=== PATIENT | male | born 1940 | race Caucasian/White ===

== ENCOUNTER → 2025-06-02 11:41 | Outpatient (REF) | payer OTHER, MEDICARE, SELFPAY ==
[2025-06-02 12:29] LABS: Hematocrit 36.7 % (39.0-52.0); Hemoglobin 12.5 g/dL (13.0-18.0); Mean Corp Hgb Conc. 34.1 g/dL (33.0-37.0); Mean Corpuscular Volume 95.3 fL (80.0-94.0); Nucleated Red Blood Cells % 0 % (-); Platelet Count 227 10^3/uL (130-400); Red Cell Dist. Width 12.9 % (11.5-14.5)
[2025-06-02 12:37] LABS: Blood Urea Nitrogen 45 mg/dl (9-20); Calcium 9.2 mg/dl (8.4-10.2); Carbon Dioxide 29 mmol/L (22-30); Chloride 106 mmol/L (98-107); Glucose 105 mg/dl (70-99); Potassium 3.8 mmol/L (3.5-5.1); Sodium 137 mmol/L (135-145); eGFR > 60.00
== END ==
LOC: OLABP 11:41
PROVIDERS: ATTENDING PHYSICIAN Family Medicine
DX: G20.C Parkinsonism, unspecified (principal)
CPT/HCPCS: 36415; 80048; 85025

== ENCOUNTER → 2025-06-06 10:11 | Outpatient (REF) | payer OTHER, MEDICARE, SELFPAY ==
[2025-06-06 10:46] LABS: Blood Urea Nitrogen 29 mg/dl (9-20); Calcium 9.1 mg/dl (8.4-10.2); Carbon Dioxide 29 mmol/L (22-30); Chloride 105 mmol/L (98-107); Glucose 92 mg/dl (70-99); Potassium 3.9 mmol/L (3.5-5.1); Sodium 137 mmol/L (135-145); eGFR > 60.00
== END ==
LOC: OLABP 10:11
PROVIDERS: ATTENDING PHYSICIAN Family Medicine
DX: G20.C Parkinsonism, unspecified (principal); C21.0 Malignant neoplasm of anus, unspecified
CPT/HCPCS: 36415; 80048

== ENCOUNTER 2025-06-08 11:56 | Inpatient (IN) | payer MEDICARE, OTHER, SELFPAY ==
[2025-06-08] VITALS (8 sets, daily range): BP systolic 104–146; BP diastolic 46–72; BMI 23.0
[2025-06-08 09:05] LABS: Hematocrit 31.1 % (39.0-52.0); Hemoglobin 10.5 g/dL (13.0-18.0); Mean Corp Hgb Conc. 33.8 g/dL (33.0-37.0); Mean Corpuscular Volume 96.3 fL (80.0-94.0); Nucleated Red Blood Cells % 0 % (-); Platelet Count 223 10^3/uL (130-400); Red Cell Dist. Width 12.9 % (11.5-14.5)
[2025-06-08 09:16] LABS: Urine Character Bloody (Clear)
[2025-06-08 09:18] LABS: Urine Red Blood Cell >100 /HPF (0-2)
[2025-06-08 09:22] LABS: Blood Urea Nitrogen 30 mg/dl (9-20); Calcium 8.5 mg/dl (8.4-10.2); Carbon Dioxide 27 mmol/L (22-30); Chloride 106 mmol/L (98-107); Glucose 97 mg/dl (70-99); Sodium 136 mmol/L (135-145); eGFR > 60.00
--- NOTE | 2025-06-08 09:34 | ED.GENMED ---
History of Present Illness
General
Chief Complaint: Urinary Symptoms
Source: spouse
Exam Limitations: dementia
Time Seen by Provider: 06/08/25 09:13
History of Present Illness
History of Present Illness:
85-year-old male sent in for hematuria. Patient is currently at [facility] after a week stay at [facility]. He was admitted to [place] with mental status change. History of Parkinson's. They ultimately determined that his
mental status change was related to his Parkinson's. Hernández was placed about a week ago at [facility] for unknown reason. thinks it was because of incontinence. Has had hematuria for this time. Ongoing and continues. Patient has no specific
complaints.
Past History
Past History
ED Past Medical History: Cancer (Prostate CA), Valvular disease (Aortic stenosis) and Other (Parkinson's/dementia)
Phy Exam
Physical Exam
Physical Exam:
GENERAL: Eyes closed but will respond react talk
EYE: Orbits normal.
NECK: Supple
CARDIAC: Regular rate and rhythm
LUNGS: Clear breath sounds,normal
ABDOMEN: Soft, bowel sounds present. No distention. Mild tenderness mostly suprapubic but nonlocalizing. No rebound or guarding no mass or hernia
: Catheter in place. Gross dark hematuria but with no clots. Flowing well.
NEUROLOGICAL: Alert. Nonfocal.
SKIN: Warm and dry, no rash or lesion, no discoloration, skin intact.
MUSCULOSKELETAL: No edema,no deformity.Good color
PSYCH: Eyes closed. Flat affect.
Course
Orders/Labs/Results
Orders:
Orders
06/08/25 08:44
Basic Metabolic Panel Urgent
Complete Blood Count/With Diff Urgent
Urinalysis Reflex To Culture Urgent
Date Specimen was Collected: 06/08/25
Time Specimen was Collected: 08:43
Urine Microscopic Urgent
Date Specimen was Collected: 06/08/25
Time Specimen was Collected: 08:43
06/08/25 09:32
CT Abd/pel Without Iv Or Oral Urgent
Comment:
Reason For Exam: Gross hematuria/vague lower abdominal pain
06/08/25 11:04
CBI- Treatment PRN
Solution: saline
IV Insert/Care/Rem.- Treatment PRN
06/08/25 11:25
ABO2 Urgent
BBK Wristband Number:
Associate notified that ABO2 has been ordered: [id number]
Date: 06/08/25
Time: 12:29
Teller [facility]ault ID: [id number]
06/08/25 11:29
Admit/Transfer Patient As Directed
Co-Sign Provider:
Level of Care: Inpatient admission
Assign to:: Medical/Surgical
Physician / Group: Lakshmi
Diagnosis: Hematuria
Reason for Hospitalization: Hematuria
Expected length of stay greater than two midnights?: Yes
ELOS- Estimated Length of Stay in days: 3
I certify the patient meets the requirements for IP care: Yes
Code Status As Directed
Resuscitation Status: Do not resuscitate
Reached after discussion with pt or family/Healthcare POA: Yes
PRN Pain Medication Management As Directed
May give lesser potent ordered pain med per pt: Yes
preference::
Protocol:: Medication orders for pain may be administered in a
manner that supports deferring to patient preference
when the pt is:
- Requesting an ordered lesser potent pain medication.
Least to most potent pain medications are defined
as: acetaminophen < NSAID < tramadol < opioids
(morphine, oxycodone, hydromorphone).
- Requesting a lesser dose of the same medication IF
ORDERED.
- Requesting a less intrusive route of administration
if both routes are prescribed by the provider (PO <
IV).
06/08/25 11:30
DNR Bracelet Application ONCE
06/08/25 12:58
Acetaminophen [Tylenol] 650 mg PO Q4HPRN PRN
Bisacodyl [Dulcolax] 10 mg RECTAL [id number] PRN
Docusate W/Senna [Senokot-S] 1 tablet PO BIDPRN PRN
Polyethylene Glycol Powder [Miralax] 17 grams PO DAILYPRN PRN
06/08/25 12:58
Activity As Directed
Activity Level: With Assistance
Pneumatic Compression Sleeves As Directed
Type: Knee high
Vital Signs As Directed
Frequency: Per unit guidelines
DX Deep Vein Thrombosis Video Routine
06/08/25 13:00
0.9% Sodium Chloride 1000 ml [Nss] 1,000 ml IV 80 mls/hr
06/08/25 13:51
Hemoglobin Q8H
06/08/25 Dinner
Regular
At Your Request: Non-Participating
06/08/25 22:00
Hemoglobin Q8H
06/09/25 06:00
Basic Metabolic Panel IN AM
Complete Blood Count/No Diff IN AM
Hemoglobin Q8H
06/09/25 14:00
Hemoglobin Q8H
06/10/25 06:00
Basic Metabolic Panel IN AM
Complete Blood Count/No Diff IN AM
06/11/25 06:00
Basic Metabolic Panel IN AM
Complete Blood Count/No Diff IN AM
06/12/25 06:00
Basic Metabolic Panel IN AM
Complete Blood Count/No Diff IN AM
06/13/25 06:00
Basic Metabolic Panel IN AM
Complete Blood Count/No Diff IN AM
06/14/25 06:00
Basic Metabolic Panel IN AM
Complete Blood Count/No Diff IN AM
06/15/25 06:00
Basic Metabolic Panel IN AM
Complete Blood Count/No Diff IN AM
Abnormal Lab Results
06/08/25
08:44
RBC 3.23 L 10^6/uL
(4.70-6.10)
Hgb 10.5 L g/dL
(13.0-18.0)
Hct 31.1 L %
(39.0-52.0)
MCV 96.3 H fL
(80.0-94.0)
MCH 32.5 H pg
(27.0-31.0)
Absolute Neuts (auto) 8.6 H 10^3/uL
(1.4-6.5)
Absolute Monos (auto) 0.7 H 10^3/uL
(0.1-0.6)
Neutrophils % 79.8 H %
(42.2-75.2)
Lymphocytes % 12.2 L %
(20.5-51.1)
BUN 30 H mg/dl
(9-20)
Creatinine 0.5 L mg/dL
(0.7-1.3)
Urine RBC >100 A /HPF
(0-2)
06/08/25 08:44
06/08/25 08:44
Vital Signs
Initial and Last Documented VS:
Initial Vital Signs
Temp Pulse Resp BP Pulse Ox
99.2 F 83 25 111/55 97
06/08/25 08:27 06/08/25 08:27 06/08/25 08:27 06/08/25 08:27 06/08/25 08:27
Last Documented Vital Signs
Temp Pulse Resp BP Pulse Ox
99.2 F 90 16 110/53 98
06/08/25 08:27 06/08/25 12:45 06/08/25 12:45 06/08/25 12:00 06/08/25 16:04
MDM/Problems Addressed
Differential Diagnosis Includes:
Gross hematuria. Possible positioning issue versus UTI. Has had a drop in his hemoglobin from 6 days ago although clinically stable. Discussed with urology. CT scan pending.
*Pulse Oximetry
SaO2: 96
Oxygen Mode of Delivery: Room air
Patient hypoxic: no
*Critical Care Note
Total Time (30-74mins, 75-104mins- exclusive of procedures): Not Applicable
ED Attending Note
-
Portions of this chart may have been created with voice recognition software.� Occasional wrong word or��sound alike� substitutions may have occurred due to the inherent limitations of voice recognition software.
Discharge Plan
Departure
Patient Disposition: Admit
Date of Disposition: 06/08/25
Time of Disposition: 10:39
Presentation/result/management discussed w/ accepting MD/DO: Milan
Discharge Problem:
Gross hematuria, Drop in hemoglobin, history of Parkinson's
Interventions
Interventions:
*Risk Screen - Suicide Last Done: 06/08/25 08:27
*General Assessment Last Done: 06/08/25 08:27
*Neglect/Abuse Screening Last Done: 06/08/25 08:27
*ED- Fall Risk Assessment Last Done: 06/08/25 12:52
*ED COVID-19 Vaccine History Last Done: 06/08/25 08:27
*Nursing Disposition Last Done: 06/08/25 12:52
ED-Male Genitourinary Assessment Last Done: 06/08/25 08:27
Discharge Date and Time
Discharge Date/Time: 06/08/25 12:52
--- NOTE | 2025-06-08 11:15 | HPS.HSE ---
Family Physician
-
Family Physician: Fani Duff, DO
Chief Complaint
-
Hematuria
History of Present Illness
85 y/o M with PMHx Parkinson disease (and Parkinson's related dementia) who presents from [facility] due to hematuria. History is limited by dementia and history is obtained via the . Patient was recently at [facility] for change in mental status
that was determined to be related to his underlying Parkinson's disease. He had a Hernández catheter placed for approximately a week. It is thought that this was placed due to incontinence. No reports of chest pain, shortness of breath, vomiting,
abdominal pain, fever.
Medical History
Past Medical History
Past Medical History: Reports Other (as per HPI)
Past Surgical History: Reports None (N/A)
Social History
Tobacco: Non-smoker
Alcohol: None
Drug: None
Family History
Family History: Not pertinent
Allergies / Home Medications
Allergies reflects when Allergies were last updated in [facility].
Home Medications with original date entered in [facility]
Allergy/Medication List:
Rasagiline 1mg PO daily
Lipitor 40mg PO daily
ASA 81mg PO daily
Plavix 75mg PO daily
Sinemet 25/100mg 1 tab Q3H
Sinemet 50/200mg 1 tab QHS
Entacapone 200mg (frequency unknown)
Review of Systems
-
Unable to obtain full review of systems at this time due to: Dementia
Physical Exam
Vital Signs
Vital Signs
Temp Pulse Resp BP Pulse Ox
99.2 F 77 12 107/66 98
06/08/25 08:27 06/08/25 10:21 06/08/25 10:21 06/08/25 10:00 06/08/25 10:00
Physical Exam
General: Other (.)
Laboratory Results
-
06/08/25 08:44
06/08/25 08:44
Laboratory Results
Total Bilirubin Cancelled 06/08/25 08:44
AST Cancelled 06/08/25 08:44
ALT Cancelled 06/08/25 08:44
Alkaline Phosphatase Cancelled 06/08/25 08:44
Impression/Plan
-
Gen: NAD, Awake and somewhat alert
Neck: supple.
CV: RRR, +S1/S2, no m/r/g.
Resp: CTAB, no rales, wheezes, or rhonchi.
Abd: +BS, soft, suprapubic TTP, ND
Skin: No rashes.
Neuro: CN 2-12 intact, non-focal.
Psych: Normal mood and affect.
CT A/P: Small calcifications within both kidneys, likely nephroliths. No evidence for ureteral calculus. Hernández catheter is present within the urinary bladder. Increased density within the dependent portion of the urinary bladder lumen, compatible
with blood products/hematoma. Status post cholecystectomy. Common bile duct measures up to 10 mm, which is top normal after cholecystectomy. Moderate to large amount of stool within the colon, suggesting a degree of constipation. There are no
findings to suggest stercoral colitis.
Acute blood loss anemia due to acute hematuria:
-discussed with Dr. Yates, initiate CBI
-exacerbated by Plavix/ASA, hold
-H/H Q8H
-type and screen
-IVFs
Parkinson's with resulting dementia:
-cont Sinemet/Entacapone
HLD:
-cont statin
DNR/SCDs
--- NOTE | 2025-06-08 12:41 | CM ---
CM reviewed chart and met with pt and his bedside in ED. Pt was recently admitted to [facility] and discharged to [facility] for STR. His would prefer him closer to their home in [place] for continued STR if needed. She is also
considering LTC in memory care unit. I provided her with a list of local facilities that have memory care units. She is planning to begin calling about costs.
Prior to admission, pt lived with his in [address], [facility]. He needed her assistance with ADLs and personal care and ambulated with a cane. While in Rehab he has been using a walker.
Pt had linn placed at [facility], is not sure why it was placed or if it is permanent.
CM will continue to follow for all discharge planning needs.
[2025-06-08] MEDS: NSS 1000 IV (13:36)
[2025-06-08] MEDS: SINEMET 25-100 1 TABLET PO ×4 (13:36→22:31)
[2025-06-08 14:01] LABS: Hemoglobin 10.4 g/dL (13.0-18.0)
[2025-06-08] MEDS: COMTAN 200 MG PO ×2 (15:34→22:31)
--- NOTE | 2025-06-08 17:12 | PTCARENOTE ---
Pt. received from ED at around 1500. Pt. with CBI running, however almost clamped. Pt. in extreme discomfort, pulling at linn and the urine coming out of CBI was a maroon shade. When turning the pt. this nurse noticed the fluid began leaking around
the linn and coming out onto the fei. With another RN, this RN grabbed an irrigation kit and began irrigating the linn, many clots removed. Pt. CBI then began draining properly. Pt. now with wide open CBI, pt. will voice his discomfort, nurse
will irrigate cath to remove clots and pt. has relief. Pt. now resting comfortably in bed, issues addressed. CBI draining properly, urine coming out of cath is a punchy red. Input and output being watched closely. Will continue with plan of care.
[2025-06-08] MEDS: LIPITOR 40 MG PO (18:03)
[2025-06-08 22:27] LABS: Hemoglobin 10.6 g/dL (13.0-18.0)
[2025-06-08] MEDS: SINEMET CR 50/200 (EXTENDED RELEASE) 1 TABLET PO (22:31)
[2025-06-09] MEDS: SINEMET 25-100 1 TABLET PO ×8 (01:01→21:43)
[2025-06-09] MEDS: NSS 1000 IV ×2 (04:08→15:22)
[2025-06-09 05:42] LABS: Hematocrit 27.2 % (39.0-52.0); Hemoglobin 9.1 g/dL (13.0-18.0); Mean Corp Hgb Conc. 33.5 g/dL (33.0-37.0); Mean Corpuscular Volume 97.1 fL (80.0-94.0); Platelet Count 198 10^3/uL (130-400); Red Cell Dist. Width 12.8 % (11.5-14.5)
[2025-06-09 06:00] VITALS: BMI 22.8
[2025-06-09 06:02] LABS: Blood Urea Nitrogen 22 mg/dl (9-20); Calcium 8.2 mg/dl (8.4-10.2); Carbon Dioxide 27 mmol/L (22-30); Chloride 107 mmol/L (98-107); Estimated Creatinine Clearance 93 ml/min; Glucose 77 mg/dl (70-99); Potassium 3.7 mmol/L (3.5-5.1); Sodium 136 mmol/L (135-145); eGFR > 60.00
[2025-06-09 07:30] VITALS: BP 109/48
[2025-06-09] MEDS: COMTAN 200 MG PO ×3 (07:59→21:43)
--- NOTE | 2025-06-09 08:12 | W.PN.UPDATE ---
Update Note
Progress Note Update
06/08: admitted from [facility] w/ dark bloody urine output from Hernández catheter in last week.
Hernández catheter placed ~1 week ago @[facility] (per records - placed for 'incontinence').
History limited from patient due to dementia - obtained from spouse.
On aspirin + Plavix.
CTAP w/o IV contrast => Normal bilateral kidneys/ureters, Hernández catheter balloon in bladder, increased density products in dependent bladder c/w clots.
No mural lesion or bladder masses grossly indicative of bladder cancer noted.
Urinary retention
Suspected decompression hematuria
Clot urinary retention on DAPT
Recommendations:
- Hold aspirin/Plavix
- 3-way catheter exchanged in ED on admission w/ CBI initiated
- Maintain CBI, hand irrigate q6hrs prn clot obstruction
- Urology will reassess in afternoon
D/w Hospitalist.
D/w RN.
[2025-06-09 11:15] VITALS: BP 119/58
--- NOTE | 2025-06-09 12:40 | W.PN.URO.CBU ---
Today's Communication / Plan
-
Bedside hand irrigation performed => outflow light pink to clear post-irrigation
Maintain CBI to keep urine light to clear outflow
Possible clamp trial in AM
HOLD aspirin + Plavix
D/w RN.
D/w Hospitalist.
Assessment / Plan
-
Urinary retention
Suspected decompression hematuria
Clot urinary retention on DAPT
3-way catheter irrigated @bedside this afternoon w/ return of small volume clots and clearing of urine to light pink.
CT imaging (06/08) w/ clots in dependent bladder w/o visible mass or tumor noted.
Diagnosis
-
Date of Service: June 09, 2025
-
Patient Diagnosis:
Urinary retention
Suspected decompression hematuria
Clot urinary retention on DAPT
Subjective
-
Significant dementia - unable to converse in logical fashion w/ patient (albeit pleasant affect).
Urine light maynard-colored in outflow on low drip at time of examination.
No clots in tubing or bag.
Objective
-
Vital Signs
Temp Pulse Resp BP Pulse Ox
97.8 F 86 16 115/55 97
06/09/25 14:58 06/09/25 14:58 06/09/25 14:58 06/09/25 14:58 06/09/25 14:58
Intake and Output
06/08/25 06/09/25 06/10/25
06:59 06:59 06:59
Output Total -1480 / -1480 200 / 200
Balance 1480 / 1480 -200 / -200
Output:
True Urine Output from CBI -1480 / -1480 200 / 200
Laboratory Results
06/09/25 05:03
Physical Exam
-
General - well developed, well nourished, no acute distress
Abdomen - soft, non-tender, non-distended
- 24Fr 3-way catheter w/ light maynard-colored outflow
Neuro - significant dementia, no gross motor deficits
Care Review
Data Reviewed
Discussed with: Hospitalist and Nursing
CT Scan: Report Pers Reviewed and Image Pers Reviewed
Total Time Spent with Patient (in minutes): 40
[2025-06-09 12:59] LABS: Hemoglobin 9.1 g/dL (13.0-18.0)
--- NOTE | 2025-06-09 13:57 | W.PN.HOSP.TC ---
Today's Communication/Plan
-
Continue CBI
Discussed with Dr. Yates
Assessment / Plan
Assessment / Plan
Acute blood loss anemia due to acute hematuria:
-discussed with Dr. Yates, initiated CBI. CT with no visible bladder tumor. Plan for CBI for the next 12 to 24 hours until the urine fully clears, and then can perform voiding trial
-exacerbated by Plavix/ASA, hold
-H/H Q6H. dropped from 10.6-9.1 now stable
-IVFs
Parkinson's with resulting dementia:
-cont Sinemet/Entacapone
HLD:
-cont statin
DNR/SCDs
Anticipated Discharge: 24 - 48 hours
Subjective/Interval History
-
Date of Service: June 09, 2025
History limited - patient does not answer questions directly due to dementia, but he denies any acute issues
Objective Data
-
Labs:
Laboratory Results
06/09/25 06/09/25 06/09/25
05:03 12:35 14:00
WBC 8.8
Hgb 9.1 L 9.1 L Cancelled
Hct 27.2 L
Plt Count 198
Sodium 136
Potassium 3.7
Chloride 107
Carbon Dioxide 27
BUN 22 H
Creatinine 0.5 L
Glucose 77
Calcium 8.2 L
06/09/25
18:14
WBC
Hgb Pending
Hct
Plt Count
Sodium
Potassium
Chloride
Carbon Dioxide
BUN
Creatinine
Glucose
Calcium
Vital Signs:
Vital Signs
Temp Pulse Resp BP Pulse Ox
98.0 F 91 20 119/58 97
06/09/25 11:15 06/09/25 11:15 06/09/25 11:15 06/09/25 11:15 06/09/25 11:15
I&O
06/08/25 06/09/25 06/10/25
06:59 06:59 06:59
Output Total -1480 / -1480
Balance 1480 / 1480
Review of Systems
-
Unable to obtain full review of systems at this time due to: Dementia
Physical Exam
-
General: No Apparent Distress
HEENT: Moist Mucous Membranes, Anicteric and PERRLA
Respiratory: Clear to Auscultation; Negative Wheezes, Rales or Rhonchi
Cardiac: Regular Rhythm and S1/S2; Negative Murmur, Rub or Gallop
GI: Soft, Nontender, Nondistended and Normal Bowel Sounds
Genito-urinary: Hernández and Continuous Bladder Irrigation (Clear red urine)
Musculoskeletal: No Edema
Skin: Warm and Dry; Negative Rash, Ulcers or Lesions
Neuro: Awake and AO x 3
Hematologic / Lymphatic: No Lymphadenopathy
Psych: Calm
Data Reviewed
-
Labs: Labs Reviewed by me
Old Records: Reviewed
--- NOTE | 2025-06-09 14:42 | CM ---
Spoke with patient at length about dc planning.
Pt Rosibel given infor for care homemedical communication specialist.to assist to locate assisted/memory care placement.
said she contacted [facility]
List of area memory care given to Rosibel.
PLAN To memory care
[2025-06-09 14:58] VITALS: BP 115/55
[2025-06-09] MEDS: LIPITOR 40 MG PO (18:17)
[2025-06-09 20:10] LABS: Hemoglobin 8.8 g/dL (13.0-18.0)
[2025-06-09] MEDS: SINEMET CR 50/200 (EXTENDED RELEASE) 1 TABLET PO (21:43)
[2025-06-09 23:38] VITALS: BP 125/56
[2025-06-10] MEDS: SINEMET 25-100 1 TABLET PO ×8 (00:53→21:30)
[2025-06-10 00:55] LABS: Hemoglobin 8.3 g/dL (13.0-18.0)
[2025-06-10 05:46] LABS: Hematocrit 24.4 % (39.0-52.0); Hemoglobin 8.3 g/dL (13.0-18.0); Mean Corp Hgb Conc. 34.0 g/dL (33.0-37.0); Mean Corpuscular Volume 96.4 fL (80.0-94.0); Platelet Count 189 10^3/uL (130-400); Red Cell Dist. Width 12.6 % (11.5-14.5)
[2025-06-10 06:11] LABS: Blood Urea Nitrogen 19 mg/dl (9-20); Calcium 8.0 mg/dl (8.4-10.2); Carbon Dioxide 27 mmol/L (22-30); Chloride 107 mmol/L (98-107); Estimated Creatinine Clearance 92 ml/min; Glucose 102 mg/dl (70-99); Potassium 3.5 mmol/L (3.5-5.1); Sodium 135 mmol/L (135-145); eGFR > 60.00
[2025-06-10] MEDS: COMTAN 200 MG PO ×3 (07:43→21:29)
[2025-06-10] MEDS: NON-FORMULARY ITEM 1 MG PO (07:45)
[2025-06-10 07:59] VITALS: BP 141/47
--- NOTE | 2025-06-10 09:31 | W.PN.HOSP.TC ---
Today's Communication/Plan
-
see bold
Assessment / Plan
Assessment / Plan
Assessment/plan:
Acute blood loss anemia due to acute hematuria exacerbated by aspirin and Plavix:
- Appreciate urology input, hematuria resolving on CBI
- CT with no visible bladder tumor. Plan for CBI for the next 12 to 24 hours until the urine fully clears, and then can perform voiding trial
- Continue to hold aspirin and Plavix
- Trend hemoglobin daily
Parkinson's with resulting dementia:
- Continue Sinemet/Entacapone
HLD:
- Continue statin
DVT prophylaxis�SCDs
DNR
Total time spent to see the patient on the floor, examine the patient, review data and lab results, discuss treatment plan with patient, nursing staff around 35 minutes.
Physical Exam
General: No acute distress
HEENT: Normocephalic, Atraumatic, EOMI, MMM
Respiratory: Clear to Auscultation bilaterally
Cardiac: Normal S1/S2, Regular Rate and Rhythm
GI: Soft, Nontender, Nondistended, Normal Bowel Sounds
Extremities: No Clubbing, Cyanosis, or Edema
Neuro: Confused
Psych: Calm, Cooperative
Derm: No Visible lesions
Anticipated Discharge: 24 - 48 hours
Subjective/Interval History
-
Date of Service: June 10, 2025
Hematuria resolving. Patient is pleasantly confused. No fever, no vomiting.
Objective Data
-
Labs:
Laboratory Results
06/10/25 06/10/25
00:29 05:01
WBC 7.6
Hgb 8.3 L 8.3 L
Hct 24.4 L
Plt Count 189
Sodium 135
Potassium 3.5
Chloride 107
Carbon Dioxide 27
BUN 19
Creatinine 0.5 L
Glucose 102 H
Calcium 8.0 L
Vital Signs:
Vital Signs
Temp Pulse Resp BP Pulse Ox
98.6 F 83 14 141/47 96
06/10/25 07:59 06/10/25 07:59 06/10/25 07:59 06/10/25 07:59 06/10/25 07:59
I&O
06/09/25 06/10/25 06/11/25
06:59 06:59 06:59
Intake Total 1010 / 1010
Output Total -1480 / -1480 500 / 500
Balance 1480 / 1480 510 / 510
[2025-06-10 15:00] VITALS: BP 131/65
--- NOTE | 2025-06-10 16:19 | W.PN.UPDATE ---
Update Note
Progress Note Update
H/H stable over last 24 hrs - indicative of acute blood loss anemia from decompression hematuria after catheter placement (>1 week ago - persistent bleeding @[facility]).
Urine outflow faintly pink in tubing w/ low rate CBI.
No clots.
s/p bedside irrigation yesterday by Urology w/ minimal clot burden evacuated.
Plan:
- Wean CBI o/n as tolerated to keep urine clear
- Continue holding ASA/Plavix
- Possible clamp trial and VT in AM tomorrow
- Will need outpatient F/U for cystoscopy
D/w RN.
D/w Dr. Lynch.
--- NOTE | 2025-06-10 16:54 | CM ---
Rosibel has contacted multiple assisted /memory facilities
Pt Rosibel given info for half-waybeauty specialist to assist to locate assisted/memory care placement.
List of area memory care given to Rosibel.
entered PT OT orders to see if [facility] is appropriate.
PLAN On going dc planning SNF VS memory care
[2025-06-10] MEDS: LIPITOR 40 MG PO (17:01)
--- NOTE | 2025-06-10 19:26 | PTCARENOTE ---
1924- Report given to Juanita PT to be moved to 2127.
[2025-06-10 20:01] VITALS: BP 91/45; BMI 22.8
--- NOTE | 2025-06-10 21:07 | VATNOTE ---
PTS BEHAVIOR TOO AGGRESSIVE TO ASSESS HIS IV SITE AT THIS TIME.
[2025-06-10] MEDS: SINEMET CR 50/200 (EXTENDED RELEASE) 1 TABLET PO (21:30)
[2025-06-10] MEDS: ATIVAN 0.25 MG PO (22:10)
[2025-06-10 23:16] VITALS: BP 135/72
[2025-06-11] MEDS: SINEMET 25-100 PO (02:42)
--- NOTE | 2025-06-11 03:00 | PTCARENOTE ---
06/10 2000 received pt from 3W via bed. pt confused, yelling out and rambling conversation. Combative at times. attempts made to redirect without success. STAFF TECHNOLOGIST notified, will attempt to give pt PO meds and juice to evaluate if pt could receive PO
ativan. CBI infusing bag #40, urine katty no clots. assessment completed with assistance from 2 other staff members.
--- NOTE | 2025-06-11 03:04 | PTCARENOTE ---
2200 pt was willing to take PO meds, pt continues to yell, and be combative at times. END LATHE OPERATOR notified, and PO ativan ordered. See mar for documentation.
[2025-06-11] MEDS: SINEMET 25-100 1 TABLET PO ×7 (03:45→22:04)
[2025-06-11 07:00] VITALS: BP 110/55
--- NOTE | 2025-06-11 07:18 | W.PN.HOSP.TC ---
Today's Communication/Plan
-
Resume aspirin 81 mg daily
Discharged to [facility] with Hernández when bed available
Assessment / Plan
Assessment / Plan
Assessment/plan:
Acute blood loss anemia due to acute hematuria exacerbated by aspirin and Plavix:
- CT with no visible bladder tumor
- Appreciate urology input, hematuria resolved on CBI
- Okay to resume aspirin today, continue holding Plavix for 2 more days as per urology
- Urology recommends discharge with Hernández, void trial in 1 week, outpatient follow-up for cystoscopy
- Trend hemoglobin daily
Parkinson's with resulting dementia:
- Continue Sinemet/Entacapone
- Seen by psychiatry, patient remains calm, continue Seroquel as needed
HLD:
- Continue statin
DVT prophylaxis�SCDs
DNR
Updated on phone 06/10, 06/11
Total time spent to see the patient on the floor, examine the patient, review data and lab results, discuss treatment plan with patient, nursing staff around 50 minutes
Physical Exam
General: No acute distress
HEENT: Normocephalic, Atraumatic, EOMI, MMM
Respiratory: Clear to Auscultation bilaterally
Cardiac: Normal S1/S2, Regular Rate and Rhythm
GI: Soft, Nontender, Nondistended, Normal Bowel Sounds
Extremities: No Clubbing, Cyanosis, or Edema
Neuro: Confused
Psych: Calm, Cooperative
Derm: No Visible lesions
Anticipated Discharge: Within 24 hours
Subjective/Interval History
-
Date of Service: June 11, 2025
Hematuria resolved. No fever, no vomiting.
Objective Data
-
Labs:
Laboratory Results
06/11/25
06:00
WBC Pending
Hgb Pending
Hct Pending
Plt Count Pending
Vital Signs:
Vital Signs
Temp Pulse Resp BP Pulse Ox
98.4 F 68 18 135/72 99
06/10/25 20:01 06/10/25 23:16 06/10/25 20:01 06/10/25 23:16 06/10/25 20:01
I&O
06/10/25 06/11/25 06/12/25
06:59 06:59 06:59
Intake Total 1010 / 1010 480 / 480
Output Total 500 / 500 2250 / 2250
Balance 510 / 510 -1770 / -1770
[2025-06-11] MEDS: COMTAN 200 MG PO ×3 (07:27→22:04)
[2025-06-11] MEDS: NON-FORMULARY ITEM 1 MG PO (07:27)
[2025-06-11 08:16] LABS: Hematocrit 25.8 % (39.0-52.0); Hemoglobin 8.7 g/dL (13.0-18.0); Mean Corp Hgb Conc. 33.7 g/dL (33.0-37.0); Mean Corpuscular Volume 96.6 fL (80.0-94.0); Platelet Count 204 10^3/uL (130-400); Red Cell Dist. Width 12.8 % (11.5-14.5)
[2025-06-11 10:45] VITALS: BP 114/53; PULSE 72; O2SAT 96
[2025-06-11 11:10] VITALS: BP 114/53; PULSE 75
--- NOTE | 2025-06-11 11:36 | PTCARENOTE ---
Addendum entered by Danie Severino RN 06/11/25 13:22:
CBI clamped at 0915 per urology.
Original Note:
Hernández clamped at 0915 per urology.
--- NOTE | 2025-06-11 11:52 | CM ---
CM following re: discharge planning.
Reviewed pt's chart, met with pt and spoke to pt's spouse Rosibel over the phone to update on discharge plan progress.
Pt's spouse stated she is working with [facility] care team for a possibility to place her to their memory care unit. Per spouse, she was told they do not have a bed available as of today and a bed might be available
in a few days/weeks. pt's spouse requested pt return back to [facility] to continue on a short term rehab and after the completion of a short term rehab she will transfer her to [facility] if they have
a bed available. Per spouse, if [facility] does not have a bed available at their memory care then she will work with [facility] to transfer her to [facility] memory care.
PT and OT evaluations noted - SNF level of care recommended. A referral made to [facility] and [facility].
CM spoke to [facility] admissions supervisor and she confirmed that pt will be accepted for admission but pt had a lot of behavior being there and in order to accept the pt, pt's behavior needs to be under control.
Psychiatrist consult requested to address pt's behavior.
D/C plan: [facility] when medically and behaviorally stable with further plan to place the pt to a memory care facility at [facility] or [facility].
CM will follow with discharge plan updates as hospitalization progresses
--- NOTE | 2025-06-11 13:21 | PTCARENOTE ---
CBI remains clamped per urology. Hernández w/ yellow output. Pt calm/cooperative today. OOB to chair and talking w/ spouse.
--- NOTE | 2025-06-11 13:43 | CON.MD ---
Consultation - Medical
-
patient seen chart reviewed. spoke with nursing. this consult done today june 11 2025. the patient's was at the bedside. also spoke with sidney byers. the patient is an 85 year old male dc with PD over ten years ago. he has a unilateral
brain stim implanted for the right side which said was very efficacious. he is maintained on sinemet entacapone and rasagiline. he was living at home with and doing well. while there was cognitive decline he was able to eat dress
ambulate with walker independent. says 'he had never even fallen' his demeanor was pleasant. a couple of weeks ago that changed and he was admitted to [facility] with mental status change/confusion. no particular cause found and he was dc to
[facility] where he did well for a few days then decompensated having periods of agitation for no apparent reason which appear to have been rx with ativan and seroquel. he is here at today for hematuria and drop in hemoglobin which has been
attributed to traumatic passage of a linn catheter while at [facility]. does not know why catheter was placed. she things perhaps bc he was incontinent. this consult ordered for ? agitation / irritability . the patient according to nsg has been
very pleasant. he eats by self. he is not irritable. he takes meds. when seen by this health science writer he made a concerted effort to answer all ? asked and even elaborate (perhaps a bit rambling and tangential but always pleasant)
past psych hx patient has no psych hx
medical hx parkinson's disease prostated cancer aortic stenosis vital signs okay hgb currently 8+ macrocytosis lytes ok no ecg on chart cultures negative abd cat without acute
family hx non contrib
substance abuse denied
social hx resides at [facility]. supportive patient has two sons and several grands. retired chem teacher
mse alert calm and pleasant. clearly some confusion and memory issues but socially was very adept thought process rather rambling at times mood is euthymic affect ok no si no hi aver intell insight lacking judgment okay at the moment
dx dementia w hx behavioral disturbance currently pleasant
recommendation would suggest prn seroquel 12.5 mg if patient agitated. would check ecg which i will order given qtc issues w seroquel it is possibly agitation has to do with linn of course it would be + if it could be removed. said patient
had no issues with toileting prior to [facility]. will check in tomorrow
[2025-06-11 15:00] VITALS: BP 121/63
[2025-06-11] MEDS: ASPIR LOW (ENTERIC COATED) 81 MG PO (16:18)
[2025-06-11] MEDS: LIPITOR 40 MG PO (17:09)
[2025-06-11] MEDS: SINEMET CR 50/200 (EXTENDED RELEASE) 1 TABLET PO (22:04)
[2025-06-11] MEDS: SEROQUEL 12.5 MG PO (22:08)
[2025-06-11 23:10] VITALS: BP 105/49
[2025-06-12] MEDS: SINEMET 25-100 PO ×5 (04:05→23:46)
[2025-06-12] MEDS: SINEMET 25-100 1 TABLET PO ×4 (04:06→13:57)
[2025-06-12 07:20] VITALS: BP 108/51
[2025-06-12 07:56] LABS: Hematocrit 26.5 % (39.0-52.0); Hemoglobin 8.8 g/dL (13.0-18.0); Mean Corp Hgb Conc. 33.2 g/dL (33.0-37.0); Mean Corpuscular Volume 97.8 fL (80.0-94.0); Platelet Count 211 10^3/uL (130-400); Red Cell Dist. Width 13.0 % (11.5-14.5)
[2025-06-12] MEDS: COMTAN 200 MG PO (08:31)
[2025-06-12] MEDS: NON-FORMULARY ITEM 1 MG PO (08:32)
[2025-06-12] MEDS: ASPIR LOW (ENTERIC COATED) 81 MG PO (08:32)
--- NOTE | 2025-06-12 09:00 | W.PN.HOSP.TC ---
Today's Communication/Plan
-
Discharge to short-term rehab tomorrow
Assessment / Plan
Assessment / Plan
Assessment/plan:
Acute blood loss anemia due to acute hematuria exacerbated by aspirin and Plavix:
- CT with no visible bladder tumor
- Appreciate urology input, hematuria resolved on CBI
- Cleared by urology to resume aspirin 81 mg daily on 06/11, continue holding Plavix for 1 more day as per urology
- Urology recommends discharge with Hernández, void trial in 1 week, outpatient follow-up for cystoscopy
- Trend hemoglobin daily
Parkinson's with resulting dementia:
- Continue Sinemet/Entacapone
- Seen by psychiatry, patient remains calm, continue Seroquel as needed
HLD:
- Continue statin
DVT prophylaxis�SCDs
DNR
Updated on phone 06/10, 06/11
Total time spent to see the patient on the floor, examine the patient, review data and lab results, discuss treatment plan with patient, nursing staff around 40 minutes
Physical Exam
General: No acute distress
HEENT: Normocephalic, Atraumatic, EOMI, MMM
Respiratory: Clear to Auscultation bilaterally
Cardiac: Normal S1/S2, Regular Rate and Rhythm
GI: Soft, Nontender, Nondistended, Normal Bowel Sounds
Extremities: No Clubbing, Cyanosis, or Edema
Neuro: Pleasantly confused
Psych: Calm, Cooperative
Derm: No Visible lesions
Anticipated Discharge: Within 24 hours
Subjective/Interval History
-
Date of Service: June 12, 2025
Hematuria resolved. No fever, no vomiting.
Objective Data
-
Labs:
Laboratory Results
06/12/25
06:34
WBC 6.5
Hgb 8.8 L
Hct 26.5 L
Plt Count 211
Vital Signs:
Vital Signs
Temp Pulse Resp BP Pulse Ox
98.4 F 81 16 108/51 99
06/12/25 07:20 06/12/25 07:20 06/12/25 07:20 06/12/25 07:20 06/12/25 07:20
I&O
06/11/25 06/12/25 06/13/25
06:59 06:59 06:59
Intake Total 480 / 480 1520 / 1520
Output Total 2250 / 2250 2200 / 2200
Balance -1770 / -1770 -680 / -680
--- NOTE | 2025-06-12 11:20 | PTCARENOTE ---
Patient oriented to self and place. Patient OOb with assist x2 and walker. Patient is unsteady and does not follow commands. Patient tolerated sitting in chair for 2 hours. Patient constantly quizzing staff on random personal questions about
himself. If staff does not know the answers, he will not follow commands (such as sit, drink, take meds). Patient appears paranoid when approached by staff. he will not drink his water, because he thinks we are 'drugging' him. Chair alarm
maintained, call molina in reach.
--- NOTE | 2025-06-12 11:20 | CM ---
Addendum entered by Jamarcus Tomas 06/12/25 14:33:
KAVON spoke to [facility] director prospect Brittni and she confirmed that pt is accepted for admission tomorrow and 12:00 pm medicinal plant picker time requested.
Please call Avelina [phone] to confirm discharge time tomorrow.
[facility] to arrange ambulance transport, BLS with requested medicinal plant picker time 12:00 p.m. [facility] and left with .
[facility] nursing report: [phone]
Discharge instructions fax: [phone].
D/C plan: [facility] tomorrow.
Original Note:
CM following re: discharge planning.
Reviewed pt's chart, met with pt and pt's spouse Rosibel at bedside.
Psychiatrist updated note noted - pt is calm and cooperative. Per RN pt has been calm and cooperative in the past 24 hours.
Pt's spouse stated she is working with [facility] regarding accepting the pt to their memory care facility. pt's spouse is aware that [facility] has a short term rehab and she was told they do not have a bed
available. Pt's spouse expressed her desire to discharge the pt to either [facility] or [facility].
IMM reviewed, placed on chart, pt has a copy.
CM left a message to [facility] director prospect regarding a possibility to accept the pt for a short term rehab.
CM spoke to [facility] director prospect and she confirmed they do not have a bed available today but they will have a bed available tomorrow 06/13/25 and pt will be accepted if behaviors controlled.
D/C plan: Preferred SNF: [facility] or [facility] tomorrow.
CM will follow to assist pt with discharge to a preferred SNF.
--- NOTE | 2025-06-12 11:36 | W.PN.UPDATE ---
Update Note
Progress Note Update
patient seen chart reviewed. discussed with cm. at bedside. the patient was quietly resting in bed. he was able to converse to a limited extent but often it was hard to follow. eg at one point began to talk about the supports holding up the
counter in the room. the biggest bone of contention is the linn which wishes to be removed if there is a successful voiding trial. the patient referred to the linn as an artificial penis and corrected. largely he has been cooperative.
ate some breakfast this am. was drinking fluid. he did receive a prn of seroquel last night why is not documented in chart. nursing was occupied when i was on the unit. have texted patient nurse to find out why he needed prn. at this point he is
very calm and pleasant. he is likely to go back to [facility] in the next day or so.
--- NOTE | 2025-06-12 12:19 | W.PN.UPDATE ---
Update Note
Progress Note Update
Given mental status and recent hematuria episode @[facility] from suspected catheter trauma/dislodgement and initial CBI and hand irrigation required, advise keeping Hernández catheter on discharge.
Recommendations:
- Maintain Hernández catheter to drainage
- OK to resume aspirin
- OK to resume Plavix in 24-48 hrs
- Outpatient voiding trial pending dispo
- Will need outpatient cystoscopy given retention and hematuria
D/w Hospitalist.
[2025-06-12] MEDS: SEROQUEL PO (13:46)
[2025-06-12] MEDS: ATIVAN 1 MG PO (14:44)
[2025-06-12 15:00] VITALS: BP 136/57
--- NOTE | 2025-06-12 15:13 | W.PN.UPDATE ---
Update Note
Progress Note Update
patient became extremely aggressive grabbing nursing stethoscope unwilling to let go requiring a code to be called and a number of staff to subdue him. given iv valium 5 mg. called and spoke to . learned from [facility] there was another incident in
the past 24 hours which was not charted. is agreeable to 25 mg bid seroquel. from what nursing told me patient was asking ? re $ matters and seemed paranoid. when i told this to mrs rogel she said he has been paranoid to a degree for the last
few weeks.
needed to change valium iv to im as patient pulled out iv.
[2025-06-12] MEDS: VALIUM INJECTION 5 MG IM (15:30)
--- NOTE | 2025-06-12 16:00 | PTCARENOTE ---
1400 Patient became increasingly agitated, demanding to walk out into scales, refusing to sit in chair and trying to hit staff with walker, RN ambulated patient to [place], PCT tried to distract patient with bathing and shaving, but unsuccessful. Patient
then tried to pull out linn catheter and hit staff when they tried to removed catheter from his hands. Patient's spouse was called from phone in room so patient could speak to her, but talking to her only made patient more agitated. Patient assist
back to bed with assist x3. RN notified physician, order obtained for PO Ativan. Patient spit Ativan out x2. Patient refused Seroquel also. Patient then started climbing out of bed, using call molina and phone as a weapon to hit RN. RN unable to keep
patient from climbing through the bed rails, PT and CM at bedside to assist RN in keeping patient safe. ANTONIO JON called, Physician notified, order obtained for IV Valium. Patient pulled out IV, order changed to IM Valium given at 1530. Restraints
applied to patient with the help of ANTONIO JON Team.
[2025-06-12 16:05] VITALS: BP 136/57
[2025-06-12] MEDS: COMTAN PO ×2 (16:24→22:33)
--- NOTE | 2025-06-12 18:21 | PTCARENOTE ---
Patients catheter draining blood tinged urine, because he tried multiple times to pull in out.
[2025-06-12] MEDS: LIPITOR PO (18:36)
[2025-06-12 22:30] VITALS: BP 145/59
[2025-06-12] MEDS: SINEMET CR 50/200 (EXTENDED RELEASE) PO (22:34)
[2025-06-12 23:49] LABS: Hematocrit 29.4 % (39.0-52.0); Hemoglobin 10.0 g/dL (13.0-18.0)
[2025-06-13] MEDS: SINEMET 25-100 PO ×4 (02:17→10:42)
[2025-06-13 07:12] LABS: Hematocrit 28.9 % (39.0-52.0); Hemoglobin 9.7 g/dL (13.0-18.0); Mean Corp Hgb Conc. 33.6 g/dL (33.0-37.0); Mean Corpuscular Volume 96.7 fL (80.0-94.0); Platelet Count 241 10^3/uL (130-400); Red Cell Dist. Width 13.1 % (11.5-14.5)
[2025-06-13 07:15] VITALS: BP 145/61
--- NOTE | 2025-06-13 08:45 | W.PN.HOSP.TC ---
Today's Communication/Plan
-
see bold
Assessment / Plan
Assessment / Plan
Assessment/plan:
Acute blood loss anemia due to acute hematuria exacerbated by aspirin and Plavix:
- CT with no visible bladder tumor
- Appreciate urology input, hematuria resolved on CBI
- Cleared by urology to resume aspirin 81 mg daily on 06/11, continue holding Plavix as per urology
- Urine was clear on 06/12, hemoglobin remains uptrending
- Urine with dark red blood 06/13, CBI resumed by urology
- Per urology, this is old blood and lysing clots
- Inpatient voiding trial in 24-48 hours
Parkinson's with resulting dementia:
- Continue Sinemet/Entacapone
- Seen by psychiatry, continue medication adjustments by psychiatry
HLD:
- Continue statin
DVT prophylaxis�SCDs
DNR
Updated on phone 06/10, 06/11
Total time spent to see the patient on the floor, examine the patient, review data and lab results, discuss treatment plan with patient, nursing staff around 43 minutes
Physical Exam
General: No acute distress
HEENT: Normocephalic, Atraumatic, EOMI, MMM
Respiratory: Clear to Auscultation bilaterally
Cardiac: Normal S1/S2, Regular Rate and Rhythm
GI: Soft, Nontender, Nondistended, Normal Bowel Sounds
Extremities: No Clubbing, Cyanosis, or Edema
Neuro: Pleasantly confused
Psych: Intermittent agitation noted
Derm: No Visible lesions
Anticipated Discharge: > 48 hours
Subjective/Interval History
-
Date of Service: June 13, 2025
Patient having hematuria again. No fever, no vomiting.
Objective Data
-
Labs:
Laboratory Results
06/12/25 06/13/25
23:42 06:48
WBC 6.6
Hgb 10.0 L 9.7 L
Hct 29.4 L 28.9 L
Plt Count 241
Vital Signs:
Vital Signs
Temp Pulse Resp BP Pulse Ox
98.0 F 75 16 145/61 95
06/13/25 07:15 06/13/25 07:15 06/13/25 07:15 06/13/25 07:15 06/13/25 07:15
I&O
06/12/25 06/13/25 06/14/25
06:59 06:59 06:59
Intake Total 1520 / 1520 120 / 120
Output Total 2200 / 2200 1000 / 1000
Balance -680 / -680 -880 / -880
--- NOTE | 2025-06-13 09:08 | PTCARENOTE ---
patient received in 4 point restraints. asleep, attempted to wake patient up for breakfast twice this AM. patient resting comfortably. VSS. ankle restraints off. will cont to monitor patient's behavior and attempt to remove restraints as per policy
--- NOTE | 2025-06-13 10:37 | W.PN.UPDATE ---
Update Note
Progress Note Update
patient seen chart reviewed. discussed with nursing. the patient has been very quiet this am. in fact nursing told me they had struggled to wake him although vital signs were okay. i was able to wake him . asked him if he remembered yesterday
episode of aggression. he shook his head yes but not clear to me that he did recall. he did not want to eat. i asked him if were coming he nodded yes and i told him he was 'diego she was a very take charge woman' and he smiled. we removed
restraints. will dc am seroquel for now. he has not had it and is still a bit sedated perhaps from last evening's dose which i will decrease to 12.5
[2025-06-13] MEDS: COMTAN PO (10:42)
[2025-06-13] MEDS: NON-FORMULARY ITEM PO (10:42)
[2025-06-13] MEDS: ASPIR LOW (ENTERIC COATED) PO (10:42)
--- NOTE | 2025-06-13 12:00 | CM ---
CM following re: discharge planning.
Reviewed pt's chart, met with pt and pt's spouse Rosibel over the phone to update on discharge plan progress.
Pt perea an episode of emotional outburst yesterday, remains on 4 points restraints.
Psychiatrist following to address pt's behavior.
CM spoke to [facility] information systems coordinator Avelina, explained the situation, discharge has been cancelled for today and admissions coordinate Avelina asked to coordinate pt's discharge plan with her on Monday.
Please call [facility] information systems coordinator Avelina [phone] on Monday to update on pt's behavior and discharge plan. Admission coordinator Avelina requested to fax pt's updated clinical on Monday for a review.
Per [facility] information systems coordinator Avelina, pt will be accepted when medically and behaviorally stable.
[facility] nursing report: [phone]
Discharge instructions fax: [phone].
D/C plan: [facility] when medically and behaviorally stable.
CM will follow with discharge plan updates as hospitalization progresses.
--- NOTE | 2025-06-13 13:23 | W.PN.UPDATE ---
Update Note
Progress Note Update
06/12: Urine clear yellow w/ CBI off.
This AM - dark aqueous blood urine noted in drainage bag per RN.
Aspirin resumed 06/12 (Plavix still held)
H/H stable
Plan:
- dark hematuria indicative old bleeding and lysing clots
- advise restarting CBI today - wean over next 24 hrs as tolerated
- pending mentations and dispo plan => inpatient voiding trial in 24-48 hrs
D/w Dr. Lynch.
[2025-06-13 13:35] VITALS: BMI 22.8
[2025-06-13 14:36] VITALS: BP 126/54; PULSE 91
[2025-06-13] MEDS: SINEMET 25-100 1 TABLET PO ×4 (14:38→21:11)
[2025-06-13 14:56] VITALS: BP 126/54; PULSE 91; O2SAT 96
[2025-06-13 15:10] VITALS: BP 118/64
--- NOTE | 2025-06-13 16:48 | PTCARENOTE ---
restraints removed as of 10AM this morning. patient has been appropriate and oriented. makes needs known. follow simple commands and accepts medications.
[2025-06-13] MEDS: LIPITOR 40 MG PO (17:25)
[2025-06-13] MEDS: COMTAN 200 MG PO ×2 (17:25→21:10)
--- NOTE | 2025-06-13 18:24 | PTCARENOTE ---
cont with CBI. rachid urine output [address] linn intact draining pink urine with clots
[2025-06-13] MEDS: SINEMET CR 50/200 (EXTENDED RELEASE) 1 TABLET PO (21:11)
[2025-06-13] MEDS: SEROQUEL 12.5 MG PO (21:13)
[2025-06-13 23:15] VITALS: BP 97/46
[2025-06-14] MEDS: SINEMET 25-100 1 TABLET PO ×7 (00:32→21:00)
[2025-06-14] MEDS: SEROQUEL 12.5 MG PO ×3 (00:49→21:01)
[2025-06-14] MEDS: SINEMET 25-100 PO (03:26)
[2025-06-14 07:00] VITALS: BP 126/50
[2025-06-14 07:23] LABS: Hematocrit 28.1 % (39.0-52.0); Hemoglobin 9.3 g/dL (13.0-18.0); Mean Corp Hgb Conc. 33.1 g/dL (33.0-37.0); Mean Corpuscular Volume 97.2 fL (80.0-94.0); Platelet Count 227 10^3/uL (130-400); Red Cell Dist. Width 13.2 % (11.5-14.5)
--- NOTE | 2025-06-14 08:16 | W.PN.HOSP.TC ---
Today's Communication/Plan
-
see bold
Assessment / Plan
Assessment / Plan
Assessment/plan:
Acute blood loss anemia due to acute hematuria exacerbated by aspirin and Plavix:
- CT with no visible bladder tumor
- Appreciate urology input, hematuria resolved on CBI
- Resumed aspirin 81 mg daily on 06/11, resume Plavix 06/14 as per urology
- Urine was clear on 06/12, hemoglobin remains stable
- Urine with dark red blood 06/13, CBI resumed by urology
- Per urology, this is old blood and lysing clots
- 06/14, urine now clearing with residual clots, stop CBI as per urology
Parkinson's with resulting dementia:
- Continue Sinemet/Entacapone
- Seen by psychiatry, continue medication adjustments by psychiatry
HLD:
- Continue statin
DVT prophylaxis�SCDs
DNR
Updated on phone 06/10, 06/11
Total time spent to see the patient on the floor, examine the patient, review data and lab results, discuss treatment plan with patient, nursing staff around 37 minutes
Physical Exam
General: No acute distress
HEENT: Normocephalic, Atraumatic, EOMI, MMM
Respiratory: Clear to Auscultation bilaterally
Cardiac: Normal S1/S2, Regular Rate and Rhythm
GI: Soft, Nontender, Nondistended, Normal Bowel Sounds
Extremities: No Clubbing, Cyanosis, or Edema
Neuro: Confused
Psych: Intermittent agitation noted
Anticipated Discharge: > 48 hours
Subjective/Interval History
-
Date of Service: June 14, 2025
Hematuria resolved. Patient is agitated, requiring restraints. No fever, no vomiting.
Objective Data
-
Labs:
Laboratory Results
06/14/25
06:46
WBC 7.3
Hgb 9.3 L
Hct 28.1 L
Plt Count 227
Vital Signs:
Vital Signs
Temp Pulse Resp BP Pulse Ox
97.9 F 79 16 97/46 97
06/13/25 23:15 06/13/25 23:15 06/13/25 23:15 06/13/25 23:15 06/13/25 23:15
I&O
06/13/25 06/14/25 06/15/25
06:59 06:59 06:59
Intake Total 120 / 120 120 / 120
Output Total 1000 / 1000 1900 / 1900
Balance -880 / -880 -1780 / -1780
[2025-06-14] MEDS: NON-FORMULARY ITEM 1 MG PO (08:34)
[2025-06-14] MEDS: ASPIR LOW (ENTERIC COATED) 81 MG PO (08:34)
[2025-06-14] MEDS: COMTAN 200 MG PO ×3 (08:34→21:00)
[2025-06-14] MEDS: SENOKOT-S 1 TABLET PO (08:38)
[2025-06-14] MEDS: PLAVIX 75 MG PO (09:45)
--- NOTE | 2025-06-14 10:45 | PTCARENOTE ---
Received pt without the use of restraints this am but earlier in am medicated with Seroquel 12.5mg po. Difficulty pt pt's behaviors as am increased. Refusing to cooperate in taking his meds and agitation increasing to the point were pt is grabbing
your hands forcefully and trying to harm you as well as kick you. PCT at bedside and racial slurs from pt started to fly. Also pt only wants males to take care of him, he hates females he said. Ann noel called and staff from in to help
restraint pt for staff safety. Pt was difficult to restrain due to his strength. Earlier pt given breakfast and ate a couple bites of his oatmeal and all his orange juice. Pt paranoid about what meds we were given him and indicated that we were
not doing it right. Reassureed pt about his meds, he was still uncooperative in taking them. Will cont to monitor.
--- NOTE | 2025-06-14 10:50 | W.PN.URO.CBU ---
Today's Communication / Plan
-
WHEN READY HOME WITH LINN STOP CBI NOW
Assessment / Plan
-
Urinary retention
Suspected decompression hematuria
Clot urinary retention on DAPT
3-way catheter irrigated @bedside this afternoon w/ return of small volume clots and clearing of urine to light pink.
CT imaging (06/08) w/ clots in dependent bladder w/o visible mass or tumor noted. KEEP LINN AT DISCHARGE OUT PATIENBT TRIAL OF VOID
Diagnosis
-
Date of Service: June 14, 2025
-
Patient Diagnosis:
Post Op Day:
Patient Diagnosis:
Urinary retention
Suspected decompression hematuria
Clot urinary retention on DAPT
Subjective
-
no hematuria hates linn
Objective
-
Vital Signs
Temp Pulse Resp BP Pulse Ox
98.2 F 70 20 126/50 100
06/14/25 07:00 06/14/25 07:00 06/14/25 07:00 06/14/25 07:00 06/14/25 07:00
Intake and Output
06/13/25 06/14/25 06/15/25
06:59 06:59 06:59
Intake Total 120 / 120 120 / 120
Output Total 1000 / 1000 1899
Balance -880 / -880 -1780 / -1780
Intake:
Oral fluids 120 / 120 120 / 120
Output:
Urine, Linn 1000 / 1000
True Urine Output from CBI 1899
Laboratory Results
06/14/25 06:46
06/10/25 05:01
Review of Systems
-
: Difficulty Voiding
Physical Exam
-
General - well developed, well nourished, no acute distress
Chest - clear bilaterally
Abdomen - soft, non-tender, positive bowel sounds, no CVAT, no incisional pain or distention
Genitalia - normal
Rectal - normal
Skin - warm & dry with no rash
Neuro - AOx3, no motor deficits
Extremities - no clubbing, no cyanosis, no edema
Incision - clean, dry
Dressing - clean, dry, intact
Counseling
-
KEEP LINN
Care Review
Data Reviewed
Discussed with: Nursing
--- NOTE | 2025-06-14 12:39 | W.PN.UPDATE ---
Update Note
Progress Note Update
Patient is presently counting obsessively numbers from 25-30 stating he is counting last days of April which he thinks is the current month. I was not able to redirect him. Presently he is slightly agitated and still in soft restraints due to
aggressive behavior.
Will increase the prn Seroquel back to 25 mg. Will continue F/U.
[2025-06-14 15:22] VITALS: BP 118/55
[2025-06-14] MEDS: LIPITOR 40 MG PO (15:27)
[2025-06-14] MEDS: SINEMET CR 50/200 (EXTENDED RELEASE) 1 TABLET PO (21:01)
[2025-06-14 23:05] VITALS: BP 107/55
--- NOTE | 2025-06-14 23:56 | PTCARENOTE ---
Urine has turned dark reddish brown with small blood clots and output appears to be slowing down. CBI started up again at [place].
[2025-06-15] MEDS: SINEMET 25-100 1 TABLET PO ×8 (01:04→21:19)
[2025-06-15] MEDS: SEROQUEL 25 MG PO (03:04)
[2025-06-15 05:34] LABS: Hematocrit 25.5 % (39.0-52.0); Hemoglobin 8.7 g/dL (13.0-18.0); Mean Corp Hgb Conc. 34.1 g/dL (33.0-37.0); Mean Corpuscular Volume 95.1 fL (80.0-94.0); Platelet Count 221 10^3/uL (130-400); Red Cell Dist. Width 13.2 % (11.5-14.5)
[2025-06-15 07:10] VITALS: BP 125/65
--- NOTE | 2025-06-15 08:43 | W.PN.HOSP.TC ---
Today's Communication/Plan
-
see bold
Assessment / Plan
Assessment / Plan
Assessment/plan:
Acute blood loss anemia due to acute hematuria exacerbated by aspirin and Plavix:
- CT with no visible bladder tumor
- Appreciate urology input, hematuria resolved on CBI
- Resumed aspirin 81 mg daily on 06/11, resumed Plavix 06/14 as per urology
- Urine was clear on 06/12. Urine with dark red blood 06/13, CBI resumed by urology
- Per urology, this is old blood and lysing clots
- 06/15, urology recommends stopping CBI, may restart as needed for major clots
- For possible void trial inpatient on 06/16 versus discharge with Hernández
- Patient has dementia, tugs on his Hernández, asking for void trial prior to discharge
- Continue to trend hemoglobin
Parkinson's with resulting dementia:
- Continue Sinemet/Entacapone
- Seen by psychiatry, continue medication adjustments by psychiatry
HLD:
- Continue statin
DVT prophylaxis�SCDs
DNR
Updated on phone 06/10, 06/11
Total time spent to see the patient on the floor, examine the patient, review data and lab results, discuss treatment plan with patient, nursing staff around 39 minutes
Physical Exam
General: No acute distress
HEENT: Normocephalic, Atraumatic, EOMI, MMM
Respiratory: Clear to Auscultation bilaterally
Cardiac: Normal S1/S2, Regular Rate and Rhythm
GI: Soft, Nontender, Nondistended, Normal Bowel Sounds
Extremities: No Clubbing, Cyanosis, or Edema
Neuro: Confused
Psych: Intermittent agitation noted
Anticipated Discharge: 24 - 48 hours
Subjective/Interval History
-
Date of Service: June 15, 2025
Patient is calm today. He was placed back onto CBI yesterday for clots. Urine clear today. No fever, no vomiting.
Objective Data
-
Labs:
Laboratory Results
06/15/25
04:50
WBC 7.4
Hgb 8.7 L
Hct 25.5 L
Plt Count 221
Vital Signs:
Vital Signs
Temp Pulse Resp BP Pulse Ox
97.6 F 73 18 125/65 99
06/15/25 07:10 06/15/25 07:10 06/15/25 07:10 06/15/25 07:10 06/15/25 07:10
I&O
06/14/25 06/15/25 06/16/25
06:59 06:59 06:59
Intake Total 120 / 120 1800 / 1800
Output Total 1900 / 1900 2700 / 2700
Balance -1780 / -1780 -900 / -900
[2025-06-15] MEDS: NON-FORMULARY ITEM 1 MG PO (09:07)
[2025-06-15] MEDS: ASPIR LOW (ENTERIC COATED) 81 MG PO (09:07)
[2025-06-15] MEDS: COMTAN 200 MG PO ×3 (09:07→21:19)
[2025-06-15] MEDS: PLAVIX 75 MG PO (09:07)
[2025-06-15] MEDS: MIRALAX 17 GRAMS PO (09:07)
--- NOTE | 2025-06-15 09:20 | W.PN.URO.CBU ---
Today's Communication / Plan
-
stop cbi restart prn major clots
Assessment / Plan
-
Urinary retention
Suspected decompression hematuria
Clot urinary retention on DAPT
3-way catheter irrigated @bedside this afternoon w/ return of small volume clots and clearing of urine to light pink.
CT imaging (06/08) w/ clots in dependent bladder w/o visible mass or tumor noted. KEEP LINN AT DISCHARGE OUT PATIENBT TRIAL OF VOID
Diagnosis
-
Date of Service: June 15, 2025
-
Patient Diagnosis:
Post Op Day:
Patient Diagnosis:
Post Op Day:
Patient Diagnosis:
Urinary retention
Suspected decompression hematuria
Clot urinary retention on DAPT
Subjective
-
mild hematuria after tugging on linn over night
Objective
-
Vital Signs
Temp Pulse Resp BP Pulse Ox
97.6 F 73 18 125/65 99
06/15/25 07:10 06/15/25 07:10 06/15/25 07:10 06/15/25 07:10 06/15/25 07:10
Intake and Output
06/14/25 06/15/25 06/16/25
06:59 06:59 06:59
Intake Total 120 / 120 1800 / 1800
Output Total 1900 / 1900 2700 / 2700
Balance -1780 / -1780 -900 / -900
Intake:
Oral fluids 120 / 120 1800 / 1800
Output:
Urine, Linn 2099
True Urine Output from CBI 1900 / 1900 600 / 600
Laboratory Results
06/15/25 04:50
06/10/25 05:01
Review of Systems
-
: Difficulty Voiding
Physical Exam
-
General - well developed, well nourished, no acute distress
Chest - clear bilaterally
Abdomen - soft, non-tender, positive bowel sounds, no CVAT, no incisional pain or distention
Genitalia - normal
Rectal - normal
Skin - warm & dry with no rash
Neuro - AOx3, no motor deficits
Extremities - no clubbing, no cyanosis, no edema
Incision - clean, dry
Dressing - clean, dry, intact
--- NOTE | 2025-06-15 13:18 | W.PN.UPDATE ---
Update Note
Progress Note Update
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 He has very poor memory particularly for recent events and is oriented in person only.
The main goal is to help with aggression and agitation.
For now will continue the Seroquel 12.5 mg hs.
[2025-06-15 15:05] VITALS: BP 137/83
[2025-06-15] MEDS: LIPITOR 40 MG PO (16:53)
[2025-06-15] MEDS: SENOKOT-S 1 TABLET PO (20:06)
[2025-06-15] MEDS: SEROQUEL 12.5 MG PO (21:18)
[2025-06-15] MEDS: SINEMET CR 50/200 (EXTENDED RELEASE) 1 TABLET PO (21:19)
[2025-06-15 23:12] VITALS: BP 107/59
[2025-06-16] MEDS: SINEMET 25-100 1 TABLET PO ×8 (00:11→21:59)
[2025-06-16 06:55] VITALS: BP 131/52
[2025-06-16] MEDS: NON-FORMULARY ITEM 1 MG PO (08:18)
[2025-06-16] MEDS: COMTAN 200 MG PO ×3 (08:19→21:58)
[2025-06-16 08:45] LABS: Hematocrit 30.0 % (39.0-52.0); Hemoglobin 10.0 g/dL (13.0-18.0); Mean Corp Hgb Conc. 33.3 g/dL (33.0-37.0); Mean Corpuscular Volume 98.0 fL (80.0-94.0); Platelet Count 287 10^3/uL (130-400); Red Cell Dist. Width 13.4 % (11.5-14.5)
[2025-06-16 08:54] LABS: ALT (SGPT) < 10 U/L (0-50); AST (SGOT) 36 U/L (17-59); Albumin 3.9 g/dl (3.5-5.0); Alkaline Phosphatase 124 U/L (38-126); Blood Urea Nitrogen 23 mg/dl (9-20); Calcium 8.8 mg/dl (8.4-10.2); Carbon Dioxide 29 mmol/L (22-30); Chloride 99 mmol/L (98-107); Estimated Creatinine Clearance 93 ml/min; Glucose 108 mg/dl (70-99); Potassium 3.9 mmol/L (3.5-5.1); Sodium 132 mmol/L (135-145); Total Protein 6.6 g/dl (6.3-8.2); eGFR > 60.00
[2025-06-16] MEDS: TYLENOL 650 MG PO (08:58)
--- NOTE | 2025-06-16 08:58 | W.PN.HOSP.TC ---
Today's Communication/Plan
-
PT again
f/w urology recommendations
Get records from [facility], he was there recently for confusion
Assessment / Plan
Assessment / Plan
Physical Exam
General: No acute distress
HEENT: Normocephalic, Atraumatic, EOMI, MMM
Respiratory: Clear to Auscultation bilaterally
Cardiac: Normal S1/S2, Regular Rate and Rhythm
GI: Soft, Nontender, Nondistended, Normal Bowel Sounds
: CBI noted, no gross hematuria
Extremities: No Clubbing, Cyanosis, or Edema
Neuro: Confused, moving extremities but agitated.
Psych: agitated, delusional thinking, talking to alone.
Assessment/plan:
Acute blood loss anemia due to acute hematuria exacerbated by aspirin and Plavix:
- CT with no visible bladder tumor
- Appreciate urology input, hematuria resolved on CBI
- Resumed aspirin 81 mg daily on 06/11, resumed Plavix 06/14 as per urology
- Urine was clear on 06/12. Urine with dark red blood 06/13, CBI resumed by urology
- Per urology, this is old blood and lysing clots
- 06/15, urology recommends stopping CBI, he was placed back on CBI over night 06/16, reach out to urology
- For possible void trial inpatient on 06/16 versus discharge with Hernández
- Continue to trend hemoglobin
Parkinson's with resulting dementia:
unilateral brain stim implanted for the right side which said was very efficacious.
- Continue Sinemet/Entacapone
- Seen by psychiatry, continue medication adjustments by psychiatry, he is very irritable today, will ask psych if we should increase Seroquel
HLD:
- Continue statin
Hyponatremia
Mild
DVT prophylaxis�SCDs
DNR
Total time spent to see the patient on the floor, examine the patient, review data and lab results, discuss treatment plan with patient, nursing staff around 55 minutes
Anticipated Discharge: > 48 hours
Subjective/Interval History
-
Date of Service: June 16, 2025
Objective Data
-
Labs:
Laboratory Results
06/16/25
08:23
WBC 10.3
Hgb 10.0 L
Hct 30.0 L
Plt Count 287 D
Sodium 132 L
Potassium 3.9
Chloride 99
Carbon Dioxide 29
BUN 23 H
Creatinine 0.4 L
Glucose 108 H
Calcium 8.8
Total Bilirubin 0.7
AST 36
ALT < 10
Alkaline Phosphatase 124
Vital Signs:
Vital Signs
Temp Pulse Resp BP Pulse Ox
97.6 F 72 18 131/52 97
06/16/25 06:55 06/16/25 06:55 06/16/25 06:55 06/16/25 06:55 06/16/25 06:55
I&O
06/15/25 06/16/25 06/17/25
06:59 06:59 06:59
Intake Total 1800 / 1800 600 / 600
Output Total 2700 / 2700 1100 / 900 -200 / -200
Balance -900 / -900 -500 / -300 200 / 200
--- NOTE | 2025-06-16 10:44 | W.PN.UPDATE ---
Update Note
Progress Note Update
Pt seen, sitting up in chair, alert, talking to self. Pt rambling, mildly pressured, talking about needing to convince someone about the [place], holding up a triangle with his fingers. Pt alert, making eye contact, able to answer the year
and DH after some prompting- initially said he is in [facility]. Pt able to be redirected, not physically agitated, but very talkative/rambling. Hernández was removed. Pt on Seroquel 12.5 mg HS since 06/13/25. He has prn orders for Seroquel 25 mg and Valium
2 mg IV.
Imp: Parkinson's dz with cognitive impairment, change in mental status/likely delirium
Rec: continue current psychotropic medications, monitor response. Will follow
--- NOTE | 2025-06-16 14:44 | W.PN.URO.CBU ---
Today's Communication / Plan
-
if no void replace with 2 way 22 or 24 fr linn 30 cc balloon
Assessment / Plan
-
Urinary retention
Suspected decompression hematuria
Clot urinary retention on DAPT
3-way catheter irrigated @bedside this afternoon w/ return of small volume clots and clearing of urine to light pink.
CT imaging (06/08) w/ clots in dependent bladder w/o visible mass or tumor pt family requeste voiding tria linn claer of major clots andremoved this am
Diagnosis
-
Date of Service: June 16, 2025
-
Patient Diagnosis:
Post Op Day:
Patient Diagnosis:
Post Op Day:
Patient Diagnosis:
Post Op Day:
Patient Diagnosis:
Urinary retention
Suspected decompression hematuria
Clot urinary retention on DAPT
Subjective
-
voiding trial
Objective
-
Vital Signs
Temp Pulse Resp BP Pulse Ox
97.6 F 72 18 131/52 97
06/16/25 06:55 06/16/25 06:55 06/16/25 06:55 06/16/25 06:55 06/16/25 06:55
Intake and Output
06/15/25 06/16/25 06/17/25
06:59 06:59 06:59
Intake Total 1800 / 1800 600 / 600
Output Total 2700 / 2700 1100 / 900 -200 / -200
Balance -900 / -900 -500 / -300 200 / 200
Intake:
Oral fluids 1800 / 1800 600 / 600
Output:
Urine, Linn 2100 / 2100 1100 / 1100
True Urine Output from CBI 600 / 600 -200 / -200
Laboratory Results
06/16/25 08:23
06/16/25 08:23
Review of Systems
-
: Difficulty Voiding and Bleeding
Physical Exam
-
General - well developed, well nourished, no acute distress
Chest - clear bilaterally
Abdomen - soft, non-tender, positive bowel sounds, no CVAT, no incisional pain or distention
Genitalia - normal
Rectal - normal
Skin - warm & dry with no rash
Neuro - AOx3, no motor deficits
Extremities - no clubbing, no cyanosis, no edema
Incision - clean, dry
Dressing - clean, dry, intact
Care Review
Data Reviewed
Discussed with: Nursing
[2025-06-16 14:50] VITALS: BP 132/57; PULSE 78; O2SAT 100
[2025-06-16 15:13] VITALS: BP 127/63
[2025-06-16] MEDS: SENOKOT-S 1 TABLET PO ×2 (15:51→21:58)
[2025-06-16] MEDS: LIPITOR 40 MG PO (17:51)
[2025-06-16] MEDS: SEROQUEL 12.5 MG PO (21:58)
[2025-06-16] MEDS: SINEMET CR 50/200 (EXTENDED RELEASE) 1 TABLET PO (21:58)
[2025-06-16 23:23] VITALS: BP 119/59
[2025-06-17] MEDS: SINEMET 25-100 1 TABLET PO ×8 (01:00→21:16)
[2025-06-17 03:10] VITALS: BP 121/55
[2025-06-17 07:10] VITALS: BP 98/50
[2025-06-17] MEDS: COMTAN 200 MG PO ×3 (08:17→21:16)
[2025-06-17] MEDS: NON-FORMULARY ITEM 1 MG PO (08:18)
--- NOTE | 2025-06-17 09:04 | W.PN.HOSP.TC ---
Today's Communication/Plan
-
dc planning if possible
Assessment / Plan
Assessment / Plan
Physical Exam
General: No acute distress
HEENT: Normocephalic, Atraumatic, EOMI, MMM
Respiratory: Clear to Auscultation bilaterally
Cardiac: Normal S1/S2, Regular Rate and Rhythm
GI: Soft, Nontender, Nondistended, Normal Bowel Sounds
: CBI noted, no gross hematuria
Extremities: No Clubbing, Cyanosis, or Edema
Neuro: Confused, moving extremities but agitated.
Psych: agitated, delusional thinking, talking to alone.
Assessment/plan:
Acute blood loss anemia due to acute hematuria exacerbated by aspirin and Plavix:
- CT with no visible bladder tumor
- Appreciate urology input, hematuria resolved on CBI
- Resumed aspirin 81 mg daily on 06/11, resumed Plavix 06/14 as per urology
- Urine was clear on 06/12. Urine with dark red blood 06/13, CBI resumed by urology
- Per urology, this is old blood and lysing clots
- 06/15, urology recommends stopping CBI, he was placed back on CBI over night 06/16 then weaned off. Was able to void overnight.
Parkinson's with resulting dementia:
unilateral brain stim implanted for the right side which said was very efficacious.
- Continue Sinemet/Entacapone
- Seen by psychiatry, continue medication adjustments by psychiatry, he is not agitated today, d/w psych : ok to increase Seroquel to 25 mg HS if needed.
HLD:
- Continue statin
Hyponatremia
Mild
DVT prophylaxis�SCDs
DNR
Total time spent to see the patient on the floor, examine the patient, review data and lab results, discuss treatment plan with patient, nursing staff around 55 minutes
Anticipated Discharge: Today
Subjective/Interval History
-
Date of Service: June 17, 2025
No agitation
Objective Data
-
Vital Signs:
Vital Signs
Temp Pulse Resp BP Pulse Ox
97.5 F 68 16 98/50 97
06/17/25 07:10 06/17/25 07:10 06/17/25 07:10 06/17/25 07:10 06/17/25 07:10
I&O
06/16/25 06/17/25 06/18/25
06:59 06:59 06:59
Intake Total 600 / 600 840 / 840
Output Total 1100 / 900 125 / 125
Balance -500 / -300 715 / 715
--- NOTE | 2025-06-17 10:30 | W.PN.UPDATE ---
Update Note
Progress Note Update
Patient seen at bedside, chart reviewed, discussed with staff. Mr. Ramirez was sitting up finishing with breakfast when seen. Pleasant and cooperative. Speech at normal rate and speed, not currently tangential. Tells me he slept well. He is able to
tell me the Hernández is out but he is having some complications. No aggression/agitation reported. Has not needed a PRN in over 48 hours. DC planning in process.
Impression/Recommendation: Parkinson's disease with cognitive impairment, change in mental status/likely delirium which is resolving - Continue with Seroquel 12.5mg HS. Will follow.
--- NOTE | 2025-06-17 13:05 | CM ---
CM following re: discharge planning.
Reviewed pt's chart, met with pt and spoke to pt's spouse over the phone to update on discharge plan progress.
Psychiatrist update notes noted - pt is calm, cooperative, tolerates 12.5 mg of Seroquel at HS, does not require PRN for the past 24 hours.
CM spoke to [facility] director risk Brittni and she confirmed that after reviewing pt's clinical their team made a decision not to offer a bed and a referral has been denied.
Pt's spouse is aware and she asked to work with [facility].
CM spoke to [facility] director risk and she confirmed they will monitor pt's behavior, will offer a bed when pt medically and behaviorally stable and request is made to pt's spouse to submit financial application for further transfer to
their memory care unit. Pt's spouse is aware and she will meet with [facility] team tomorrow to submit financial application.
D/C plan: [facility] when medically and behaviorally stable with further transition to [facility] memory care unit.
CM will follow to assist pt with discharge to [facility].
--- NOTE | 2025-06-17 13:06 | W.PN.URO.CBU ---
Today's Communication / Plan
-
truy and leave linn out bit if pvr rising over appox 400cc then reinsert linn but try as best to leave fley pourt
Assessment / Plan
-
Urinary retention
Suspected decompression hematuria
Clot urinary retention on DAPT
3-way catheter irrigated @bedside this afternoon w/ return of small volume clots and clearing of urine to light pink.
CT imaging (06/08) w/ clots in dependent bladder w/o visible mass or tumor pt family requeste voiding tria linn claer of major clots andremoved this am
Diagnosis
-
Date of Service: June 17, 2025
-
Patient Diagnosis:
Post Op Day:
Patient Diagnosis:
Post Op Day:
Patient Diagnosis:
Post Op Day:
Patient Diagnosis:
Post Op Day:
Patient Diagnosis:
Urinary retention
Suspected decompression hematuria
Clot urinary retention on DAPT
Subjective
-
voiding but pvr 350 no hmaturia
Objective
-
Vital Signs
Temp Pulse Resp BP Pulse Ox
97.5 F 68 16 98/50 97
06/17/25 07:10 06/17/25 07:10 06/17/25 07:10 06/17/25 07:10 06/17/25 11:35
Intake and Output
06/16/25 06/17/25 06/18/25
06:59 06:59 06:59
Intake Total 600 / 600 840 / 840
Output Total 1100 / 900 125 / 125 200 / 200
Balance -500 / -300 715 / 715 -200 / -200
Intake:
Oral fluids 600 / 600 840 / 840
Output:
Urine, Linn 1100 / 1100
Urine, Voided 325 / 325 200 / 200
True Urine Output from CBI -200 / -200
Other:
How many times incontinent 1
SATURATED amount urine
Laboratory Results
06/16/25 08:23
06/16/25 08:23
Review of Systems
-
: Difficulty Voiding
Physical Exam
-
General - well developed, well nourished, no acute distress
Chest - clear bilaterally
Abdomen - soft, non-tender, positive bowel sounds, no CVAT, no incisional pain or distention
Genitalia - normal
Rectal - normal
Skin - warm & dry with no rash
Neuro - AOx3, no motor deficits
Extremities - no clubbing, no cyanosis, no edema
Incision - clean, dry
Dressing - clean, dry, intact
Care Review
Data Reviewed
Discussed with: Hospitalist and Nursing
[2025-06-17 15:05] VITALS: BP 121/55
[2025-06-17] MEDS: MIRALAX 17 GRAMS PO (16:54)
--- NOTE | 2025-06-17 18:12 | PTCARENOTE ---
Pt w/ some difficulty voiding this morning - able to go but not emptying bladder fully. Able to void several more times throughout the day. PVR on bladder scan remained <400. Pt calm and cooperative w/ staff.
[2025-06-17] MEDS: LIPITOR 40 MG PO (18:24)
[2025-06-17] MEDS: SEROQUEL 12.5 MG PO (21:16)
[2025-06-17] MEDS: SINEMET CR 50/200 (EXTENDED RELEASE) 1 TABLET PO (21:16)
[2025-06-17 23:06] VITALS: BP 103/54
[2025-06-18] MEDS: SINEMET 25-100 1 TABLET PO ×8 (01:07→22:11)
[2025-06-18 07:44] VITALS: BP 95/54
[2025-06-18] MEDS: NON-FORMULARY ITEM 1 MG PO (07:55)
[2025-06-18] MEDS: COMTAN 200 MG PO ×3 (07:55→22:09)
--- NOTE | 2025-06-18 08:40 | W.PN.HOSP.TC ---
Today's Communication/Plan
-
dc planning if ok with urology
Assessment / Plan
Assessment / Plan
Physical Exam
General: No acute distress
HEENT: Normocephalic, Atraumatic, EOMI, MMM
Respiratory: Clear to Auscultation bilaterally
Cardiac: Normal S1/S2, Regular Rate and Rhythm
GI: Soft, Nontender, Nondistended, Normal Bowel Sounds
: CBI noted, no gross hematuria
Extremities: No Clubbing, Cyanosis, or Edema
Neuro: Confused, moving extremities but agitated.
Psych: agitated, delusional thinking, talking to alone.
Assessment/plan:
Acute blood loss anemia due to acute hematuria exacerbated by aspirin and Plavix:
- CT with no visible bladder tumor
- Appreciate urology input, hematuria resolved on CBI
- Resumed aspirin 81 mg daily on 06/11, resumed Plavix 06/14 as per urology
- Urine was clear on 06/12. Urine with dark red blood 06/13, CBI resumed by urology
- Per urology, this is old blood and lysing clots
- 06/15, urology recommends stopping CBI, he was placed back on CBI over night 06/16 then weaned off. Was able to void overnight.
Parkinson's with resulting dementia:
unilateral brain stim implanted for the right side which said was very efficacious.
- Continue Sinemet/Entacapone
- Seen by psychiatry, continue medication adjustments by psychiatry, he is not agitated today, d/w psych : ok to increase Seroquel to 25 mg HS if needed.
HLD:
- Continue statin
Hyponatremia
Mild
DVT prophylaxis�SCDs
DNR
Total time spent to see the patient on the floor, examine the patient, review data and lab results, discuss treatment plan with patient, nursing staff around 55 minutes
Anticipated Discharge: Within 24 hours
Subjective/Interval History
-
Date of Service: June 18, 2025
No chest pain
No abdominal pain
Objective Data
-
Vital Signs:
Vital Signs
Temp Pulse Resp BP Pulse Ox
97.5 F 69 18 95/54 97
06/18/25 07:44 06/18/25 07:44 06/17/25 23:06 06/18/25 07:44 06/18/25 07:44
I&O
06/17/25 06/18/25 06/19/25
06:59 06:59 06:59
Intake Total 840 / 840 1480 / 1480
Output Total 125 / 125 755 / 755
Balance 715 / 715 725 / 725
--- NOTE | 2025-06-18 10:57 | W.PN.UPDATE ---
Update Note
Progress Note Update
patient seen chart reviewed. discussed with nursing and with community case manager. mr rogel was pleasant and interactive although he remains very confused. he was cooperative with blood being drawn. he was agreeable to a walk with one of the volunteers. he
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 curiously at one point he began to tear up. i asked him what was making him sad and his reponse was 'i don't know'. he is going to be dc to [facility] today with a plan to eventually go to memory
care at [facility]. will sign off. would dc patient on current psychotropic medications seroquel 12.5 mg q hs. he did have a prn of 25 mg but not used since 06/15 seroquel can be increased if agitation increases. he does not seem to have ill
effects. psych signing off.
[2025-06-18 11:26] VITALS: BP 133/68; PULSE 86
[2025-06-18 11:27] LABS: Hematocrit 28.3 % (39.0-52.0); Hemoglobin 9.2 g/dL (13.0-18.0); Mean Corp Hgb Conc. 32.5 g/dL (33.0-37.0); Mean Corpuscular Volume 99.0 fL (80.0-94.0); Platelet Count 309 10^3/uL (130-400); Red Cell Dist. Width 13.7 % (11.5-14.5)
--- NOTE | 2025-06-18 14:21 | CM ---
CM following re: discharge planning.
Reviewed pt's chart, met with pt and pt's spouse at bedside.
Psychiatrist update notes noted - pt is calm, cooperative, tolerates 12.5 mg of Seroquel at HS, does not require PRN for the past 48 hours.
CM spoke to [facility] director of individual giving and she confirmed she spoke to pt's spouse yesterday, pt's spouse has financial application that she needs to complete and to bring to [facility] for a review. Per [facility] director of individual giving in
order for pt's transition from SNF level of care to admitting to memory care unit an application process required. Per [facility] director of individual giving, if pt's spouse brings an application today, it will be reviewed tomorrow and if approved then pt
can be admitted to [facility] probably on Monday.
Pt's spouse is aware and she stated she will bring a completed application to [facility] today around 2:45 p.m.
D/C plan: [facility] when medically and behaviorally stable with further transition to [facility] memory care unit.
CM will follow to assist pt with discharge to [facility].
[2025-06-18] MEDS: MIRALAX 17 GRAMS PO (14:38)
[2025-06-18] MEDS: SENOKOT-S 1 TABLET PO (14:38)
[2025-06-18 15:24] VITALS: BP 113/65
[2025-06-18] MEDS: LIPITOR 40 MG PO (17:08)
[2025-06-18] MEDS: TYLENOL 650 MG PO (19:45)
[2025-06-18] MEDS: SINEMET CR 50/200 (EXTENDED RELEASE) 1 TABLET PO (22:09)
[2025-06-18] MEDS: SEROQUEL 25 MG PO (22:12)
[2025-06-18 23:06] VITALS: BP 124/59
[2025-06-19] MEDS: SINEMET 25-100 1 TABLET PO ×8 (01:28→21:04)
[2025-06-19 07:04] VITALS: BP 91/49
[2025-06-19] MEDS: COMTAN 200 MG PO ×3 (08:09→21:04)
[2025-06-19] MEDS: NON-FORMULARY ITEM 1 MG PO (08:09)
--- NOTE | 2025-06-19 09:05 | W.PN.HOSP.TC ---
Today's Communication/Plan
-
D/W Rosibel on the phone 06/19 , encourage to work with SNF
Assessment / Plan
Assessment / Plan
Physical Exam
General: No acute distress
HEENT: Normocephalic, Atraumatic, EOMI, MMM
Respiratory: Clear to Auscultation bilaterally
Cardiac: Normal S1/S2, Regular Rate and Rhythm
GI: Soft, Nontender, Nondistended, Normal Bowel Sounds
: CBI noted, no gross hematuria
Extremities: No Clubbing, Cyanosis, or Edema
Neuro: Less Confused, moving extremities, gait with a walker. He follows commands.
Psych: not agitated, less delusional thinking, not talking to self.
Assessment/plan:
Acute blood loss anemia due to acute hematuria exacerbated by aspirin and Plavix:
- CT with no visible bladder tumor
- Appreciate urology input, hematuria resolved on CBI
- Resumed aspirin 81 mg daily on 06/11, resumed Plavix 06/14 as per urology
- Urine was clear on 06/12. Urine with dark red blood 06/13, CBI resumed by urology
- Per urology, this is old blood and lysing clots
- 06/15, urology recommends stopping CBI, he was placed back on CBI over night 06/16 then weaned off. Was able to void overnight.
Parkinson's with resulting dementia:
unilateral brain stim implanted for the right side which said was very efficacious.
- Continue Sinemet/Entacapone
- Seen by psychiatry, continue medication adjustments by psychiatry, increased Seroquel to 25 mg HS if needed.
HLD:
- Continue statin
Hyponatremia
Mild
DVT prophylaxis�SCDs
DNR
Updated in details 06/18.
Total time spent to see the patient on the floor, examine the patient, review data and lab results, discuss treatment plan with patient, nursing staff around 55 minutes
Anticipated Discharge: Within 24 hours
Subjective/Interval History
-
Date of Service: June 19, 2025
He feels better
denies headache or chest pain
Objective Data
-
Vital Signs:
Vital Signs
Temp Pulse Resp BP Pulse Ox
97.6 F 71 18 91/49 98
06/19/25 07:04 06/19/25 07:04 06/19/25 07:04 06/19/25 07:04 06/19/25 07:04
I&O
06/18/25 06/19/25 06/20/25
06:59 06:59 06:59
Intake Total 1480 / 1480 960 / 960
Output Total 755 / 755
Balance 725 / 725 960 / 960
[2025-06-19 15:05] VITALS: BP 126/68
--- NOTE | 2025-06-19 15:26 | CM ---
CM following re: discharge planning.
Reviewed pt's chart, met with pt and pt's spouse Rosibel at bedside.
CM spoke to [facility] director of food and nutrition and she confirmed that pt is accepted for admission tomorrow. Both pt and his spouse are aware, expressed their agreement. IMM reviewed, placed on chart, pt has a copy.
UC to arrange ambulance transport BLS for tomorrow 06/20/25. PMNC completed and left on the chart.
[facility] nursing report: [phone]
Discharge instructions fax: [phone]
D/C plan: [facility] tomorrow 06/20/25.
[2025-06-19] MEDS: LIPITOR 40 MG PO (17:01)
[2025-06-19] MEDS: SEROQUEL 25 MG PO (21:04)
[2025-06-19] MEDS: SINEMET CR 50/200 (EXTENDED RELEASE) 1 TABLET PO (21:05)
[2025-06-19 23:08] VITALS: BP 112/54
[2025-06-20] MEDS: SINEMET 25-100 1 TABLET PO ×6 (00:43→15:22)
[2025-06-20 07:10] VITALS: BP 108/60
[2025-06-20] MEDS: NON-FORMULARY ITEM 1 MG PO (08:01)
[2025-06-20] MEDS: COMTAN 200 MG PO ×2 (08:01→15:22)
--- NOTE | 2025-06-20 08:33 | W.PN.HOSP.TC ---
Today's Communication/Plan
-
discharge
Assessment / Plan
Assessment / Plan
Physical Exam
General: No acute distress
HEENT: Normocephalic, Atraumatic, EOMI, MMM
Respiratory: Clear to Auscultation bilaterally
Cardiac: Normal S1/S2, Regular Rate and Rhythm, + murmur.
GI: Soft, Nontender, Nondistended, Normal Bowel Sounds
: CBI noted, no gross hematuria
Extremities: No Clubbing, Cyanosis, or Edema
Neuro: Less Confused, moving extremities, gait with a walker. He follows commands.
Psych: not agitated, less delusional thinking, not talking to self.
Assessment/plan:
Acute blood loss anemia due to acute hematuria exacerbated by aspirin and Plavix:
- CT with no visible bladder tumor
HGB stable
- Resumed aspirin 81 mg daily on 06/11, resumed Plavix 06/14 as per urology
s/p CBI, has been able to void without issues for few days.
Appreciate urology input, hematuria resolved on CBI, for OP follow up.
Parkinson's with resulting dementia:
unilateral brain stim implanted for the right side which said was very efficacious.
- Continue Sinemet/Entacapone
- Seen by psychiatry, continue medication adjustments by psychiatry, increased Seroquel to 25 mg HS if needed, c/w PRN.
HLD:
- Continue statin
Hyponatremia
Mild
DVT prophylaxis�SCDs
DNR
Updated in details 06/18 in details and informed her that we were waiting for bed availability, she agreed to [place].
Total discharge time spent to see the patient on the floor, examine the patient, review data and lab results, discuss discharge plan with patient, nursing staff around 65 minutes
Anticipated Discharge: Today
Subjective/Interval History
-
Date of Service: June 20, 2025
No chest pain
No sob
No abdominal pain
He feels well, denies headache, blurred vision, confusion.
Slept well
Objective Data
-
Vital Signs:
Vital Signs
Temp Pulse Resp BP Pulse Ox
98.0 F 108 16 108/60 98
06/20/25 07:10 06/20/25 07:10 06/20/25 07:10 06/20/25 07:10 06/20/25 07:10
I&O
06/19/25 06/20/25 06/21/25
06:59 06:59 06:59
Intake Total 960 / 960 1020 / 1020
Balance 960 / 960 1020 / 1020
--- NOTE | 2025-06-20 08:46 | CM ---
Addendum entered by Jamarcus Tomas 06/20/25 09:30:
[facility] extension work director requested draft roller picker time 6:00 p.m. UC is aware. Both pt and his spouse are aware.
here is new numbers for nursing report and discharge instructions fax:
[facility] Nursing report: [phone]
Discharge instructions fax: [phone]
D/C plan: [facility].
Original Note:
CM following re: discharge planning.
Reviewed pt's chart, met with pt and spoke to pt's spouse Rosibel over the phone.
CM spoke to [facility] extension work director and she confirmed that pt is accepted for admission today. IMM reviewed yesterday.
UC to arrange ambulance transport BLS. PMNC completed and left on the chart.
[facility] extension work director stated she will let me know for an appropriate discharge time.
[facility] nursing report: [phone]
Discharge instructions fax: [phone]
D/C plan: [facility]
[2025-06-20] MEDS: DULCOLAX 10 MG RECTAL (10:10)
[2025-06-20] MEDS: SEROQUEL 25 MG PO (15:26)
[2025-06-20 15:42] VITALS: BP 114/53
[2025-06-20] MEDS: LIPITOR 40 MG PO (17:10)
--- NOTE | 2025-06-21 11:30 | W.DCSUMMARY ---
Discharge Summary
Discharge Data
Date of Admission: 06/08/25
Date of Discharge: 06/20/25
-
Pending Results: No
Hospital Course
85 years old male presented from [facility] with gross hematuria. Patient was recently at [facility] for change in mental status that was determined to be related to dementia associated underlying Parkinson's disease. He had scan of abdomen and pelvis
that showed normal bilateral kidneys/ureters, Hernández catheter balloon in bladder, increased density products in dependent bladder c/w clots. No mural lesion or bladder masses grossly indicative of bladder cancer noted. Aspirin and Plavix were held. A
3-way catheter exchanged in ED on admission w/ CBI initiated, hand irrigate as needed. Urologist followed the course and subsequently Urine catheter was removed. Patient was monitored for urinary retention and he was able to void without need for
Hernández. Aspirin and Plavix were resumed. Regarding mental status, patient was noted to have periods of agitation/ pressured thoughts and aggression. He was evaluated by psychiatrist and started on Seroquel at night and titrated the dose to 25 mg HS
with good response. Patient remained hemodynamically stable. He was evaluated by physical therapy and community case manager. reported that she could not care for him at home. Patient was [facility] in a stable condition.
Discharge Plan
-
Patient Disposition: Custodial/SNF
Discharge Diagnosis/Procedures: -Hematuria: Acute blood loss anemia due to acute hematuria exacerbated by aspirin and Plavix, back on his medications, no hematuria.
- Parkinson's with resulting dementia, stable on Seroquel.
Diet: As tolerated
Referrals:
Gregorio Yates MD [Active, Urology]
Referral Note: Please call Dr. Yates's office to coordinate an outpatient voiding trial after discharge from [facility].
You will also need to be scheduled for a cystoscopy procedure in the office after your catheter is removed.
Fani Duff DO [Family Provider, General] - in one to two weeks
Prescriptions:
New
quetiapine 25 mg Tablet
25 mg PO Q8HPRN PRN (Reason: agitation) Qty: 10 0RF
Continued
quetiapine 25 mg Tablet
25 mg PO HS
atorvastatin 40 mg tablet
40 mg PO QPM
zinc acetate 50 mg (zinc) Capsule
50 mg PO DAILY
carbidopa-levodopa 50-200 mg tablet extended release
1 tab PO HS
acetaminophen 500 mg Tablet
500 mg PO BIDPRN PRN (Reason: mild pain)
flaxseed oil 1,000 mg Capsule
1,000 mg PO DAILY
entacapone 200 mg tablet
200 mg PO TID
ascorbic acid (vitamin C) 500 mg Tablet
500 mg PO DAILY
calcium polycarbophil 625 mg Tablet
625 mg PO BID
docusate sodium 100 mg Capsule
100 mg PO DAILY
vitamin B complex Tablet
1 tab PO DAILY
carbidopa-levodopa 25-100 mg Tablet
1 tab PO Q3H
coenzyme Q10 [Co Q-10] 100 mg Capsule
100 mg PO BID
rasagiline 1 mg tablet
1 mg PO DAILY
clopidogrel 75 mg tablet
75 mg PO DAILY
Rx Instructions:
start 06/09/25
aspirin 81 mg Tablet
81 mg PO DAILY
Rx Instructions:
start 06/09/25
Changed
cetirizine 10 mg Tablet
10 mg PO DAILYPRN PRN (Reason: allergy) Qty: 0 0RF
Discontinued
Tubersol 5 tub. unit /0.1 mL Solution
0.1 ml INTRADERMAL ONCE
lorazepam [Ativan] 0.5 mg Tablet
0.5 mg PO Q6HPRN PRN (Reason: anxiety)
Discharge Orders:
Discharge Patient (As Directed); Ordered 06/20/25
Ordered By: Tatyana Harrison
Discharge Date and Time
Discharge Date/Time: 06/20/25 18:33
Print Language: ROMANIAN
== END 2025-06-20 18:33 | DRG 812 ==
LOC: 2 NORTH 11:56
PROVIDERS: Emergency Medicine; Internal Medicine; Nurse Practitioner Gerontology; ADMITTING PHYSICIAN Internal Medicine; ATTENDING PHYSICIAN Internal Medicine; CONSULT PHYSICIAN Psychiatry & Neurology Psychiatry; EMERGENCY PHYSICIAN Emergency Medicine; FAMILY PHYSICIAN Family Medicine
DX: D62 Acute posthemorrhagic anemia (principal); D68.32 Hemorrhagic disorder due to extrinsic circulating anticoagulants; F02.84 Dementia in other diseases classified elsewhere, unspecified severity, with anxiety; E87.1 Hypo-osmolality and hyponatremia; R31.0 Gross hematuria; T45.515A Adverse effect of anticoagulants, initial encounter; Z79.01 Long term (current) use of anticoagulants; G20.A1 Parkinson's disease without dyskinesia, without mention of fluctuations; E78.5 Hyperlipidemia, unspecified; Z66 Do not resuscitate; Z79.82 Long term (current) use of aspirin; Z90.49 Acquired absence of other specified parts of digestive tract; Z85.46 Personal history of malignant neoplasm of prostate
CPT/HCPCS: 74176; 80048; 80053; 81003; 81015; 85014; 85018; 85025; 85027; 86850; 86900; 86901; 87070; 93005; 97116; 97162; 97167; 97530; 97535; 99285

== ENCOUNTER → 2025-06-23 10:59 | Outpatient (REF) | payer MEDICARE, OTHER, SELFPAY ==
[2025-06-23 11:54] LABS: ALT (SGPT) < 10 U/L (0-50); AST (SGOT) 25 U/L (17-59); Albumin 3.3 g/dl (3.5-5.0); Alkaline Phosphatase 100 U/L (38-126); Blood Urea Nitrogen 18 mg/dl (9-20); Calcium 8.5 mg/dl (8.4-10.2); Carbon Dioxide 27 mmol/L (22-30); Chloride 105 mmol/L (98-107); Glucose 87 mg/dl (70-99); Potassium 4.3 mmol/L (3.5-5.1); Sodium 134 mmol/L (135-145); Total Protein 5.6 g/dl (6.3-8.2); eGFR > 60.00
[2025-06-23 11:59] LABS: Hematocrit 27.1 % (39.0-52.0); Hemoglobin 8.8 g/dL (13.0-18.0); Mean Corp Hgb Conc. 32.5 g/dL (33.0-37.0); Mean Corpuscular Volume 99.6 fL (80.0-94.0); Nucleated Red Blood Cells % 0 % (-); Platelet Count 283 10^3/uL (130-400); Red Cell Dist. Width 13.9 % (11.5-14.5)
== END ==
LOC: OLABP 10:59
PROVIDERS: ATTENDING PHYSICIAN Family Medicine
DX: G20.A2 Parkinson's disease without dyskinesia, with fluctuations (principal); C61 Malignant neoplasm of prostate; R52 Pain, unspecified; R33.9 Retention of urine, unspecified; K62.5 Hemorrhage of anus and rectum; F03.90 Unspecified dementia, unspecified severity, without behavioral disturbance, psychotic disturbance, mood disturbance, and anxiety; R41.82 Altered mental status, unspecified
CPT/HCPCS: 36415; 80053; 85025

== ENCOUNTER → 2025-06-25 10:15 | Outpatient (REF) | payer MEDICARE, OTHER, SELFPAY ==
[2025-06-25 10:42] LABS: Hematocrit 28.3 % (39.0-52.0); Hemoglobin 9.3 g/dL (13.0-18.0); Mean Corp Hgb Conc. 32.9 g/dL (33.0-37.0); Mean Corpuscular Volume 99.0 fL (80.0-94.0); Platelet Count 306 10^3/uL (130-400); Red Cell Dist. Width 13.9 % (11.5-14.5)
[2025-06-25 10:50] LABS: Blood Urea Nitrogen 15 mg/dl (9-20); Calcium 8.4 mg/dl (8.4-10.2); Carbon Dioxide 25 mmol/L (22-30); Chloride 106 mmol/L (98-107); Glucose 106 mg/dl (70-99); Potassium 4.4 mmol/L (3.5-5.1); Sodium 134 mmol/L (135-145); eGFR > 60.00
== END ==
LOC: OLABP 10:15
PROVIDERS: ATTENDING PHYSICIAN Family Medicine
DX: G20.A2 Parkinson's disease without dyskinesia, with fluctuations (principal); R52 Pain, unspecified; C61 Malignant neoplasm of prostate; R33.9 Retention of urine, unspecified; K62.5 Hemorrhage of anus and rectum; F03.90 Unspecified dementia, unspecified severity, without behavioral disturbance, psychotic disturbance, mood disturbance, and anxiety; R41.82 Altered mental status, unspecified
CPT/HCPCS: 36415; 80048; 85027

== ENCOUNTER 2025-06-29 23:30 | Inpatient (IN) | payer MEDICARE, OTHER, SELFPAY ==
[2025-06-29] VITALS (7 sets, daily range): BP systolic 109–162; BP diastolic 57–84; BMI 25.1
[2025-06-29 18:52] LABS: Hematocrit 29.8 % (39.0-52.0); Hemoglobin 9.7 g/dL (13.0-18.0); Mean Corp Hgb Conc. 32.6 g/dL (33.0-37.0); Mean Corpuscular Volume 99.0 fL (80.0-94.0); Nucleated Red Blood Cells % 0 % (-); Platelet Count 316 10^3/uL (130-400); Red Cell Dist. Width 14.1 % (11.5-14.5)
[2025-06-29 18:59] LABS: Urine Character Bloody (Clear)
[2025-06-29 19:01] LABS: INR 1.08; PT 14.3 Sec (11.4-14.6)
[2025-06-29 19:02] LABS: APTT 26.8 Sec (23.4-35.0)
[2025-06-29 19:06] LABS: ALT (SGPT) < 10 U/L (0-50); AST (SGOT) 20 U/L (17-59); Albumin 3.6 g/dl (3.5-5.0); Alkaline Phosphatase 93 U/L (38-126); Blood Urea Nitrogen 22 mg/dl (9-20); Calcium 8.1 mg/dl (8.4-10.2); Carbon Dioxide 22 mmol/L (22-30); Chloride 110 mmol/L (98-107); Estimated Creatinine Clearance 90 ml/min; Glucose 126 mg/dl (70-99); Potassium 3.9 mmol/L (3.5-5.1); Sodium 136 mmol/L (135-145); Total Protein 6.2 g/dl (6.3-8.2); eGFR > 60.00
[2025-06-29 19:07] LABS: Urine Red Blood Cell >100 /HPF (0-2)
--- NOTE | 2025-06-29 19:54 | ED.GENMED ---
History of Present Illness
General
Chief Complaint: Male Genito-Urinary Symptoms
Source: patient
Time Seen by Provider: 06/29/25 19:46
History of Present Illness
History of Present Illness:
85-year-old male presents to the emergency room from [facility] for evaluation of hematuria with clots. Patient was recently hospitalized for similar issue at which point he had continuous bladder irrigation. Patient is taking both Plavix and
aspirin. Patient was noted by staff at [facility] to have decreased urine output. When he did something it was blood and clots. Patient complaining of suprapubic pain as well. No fever or chills. Patient does have a history of Parkinson's with
dementia.
Past History
Past History
ED Past Medical History: Cancer (Prostate CA), Valvular disease (Aortic stenosis) and Other (Parkinson's/dementia)
Phy Exam
Physical Exam
Physical Exam:
General: Awake, Alert, Oriented X2. No acute distress. Appears stated age
Vitals: unremarkable
Head: Atraumatic
Eyes: Pupils equal, EOMI
Throat: Airway intact, no exudates
Neck: Trachea midline
Lungs: Clear and equal b/l
Heart: Regular rate, no murmurs
Abd: Soft, suprapubic tenderness, no pulsatile mass
Genitalia: Uncircumcised penis with a in-place three-way Hernández catheter. Gross blood in the tubing
Neuro: Nonfocal
Skin: Warm, dry, no rash
Extremities: pulses equal b/l, no edema
Course
Orders/Labs/Results
Orders:
Orders
06/29/25 18:38
EKG [Electrocardiogram (*1)] Urgent
Reason for Study: Bradycardia / Tachycardia
EKG- Treatment ONCE
Complete Blood Count/With Diff Urgent
Comprehensive Metabolic Panel Urgent
PTT Urgent
Prothrombin Time Urgent
06/29/25 18:39
Urinalysis Reflex To Culture Urgent
Date Specimen was Collected: 06/29/25
Time Specimen was Collected: 18:37
Comment: Hernández Catheter
Urine Microscopic Reflex Cult Urgent
Urine Culture Urgent
SIGIFREDO Source: U
Specimen Description:
Date Specimen was Collected: 06/29/25
Time Specimen was Collected: 18:37
06/29/25 22:29
Quetiapine Fumarate [Seroquel] 25 mg .ROUTE .ST-MED ONE
06/29/25 22:32
Quetiapine Fumarate [Seroquel] 25 mg PO NOW STA
Abnormal Lab Results
06/29/25 06/29/25
18:38 18:39
RBC 3.01 L 10^6/uL
(4.70-6.10)
Hgb 9.7 L g/dL
(13.0-18.0)
Hct 29.8 L %
(39.0-52.0)
MCV 99.0 H fL
(80.0-94.0)
MCH 32.2 H pg
(27.0-31.0)
MCHC 32.6 L g/dL
(33.0-37.0)
Absolute Neuts (auto) 8.0 H 10^3/uL
(1.4-6.5)
Neutrophils % 77.7 H %
(42.2-75.2)
Lymphocytes % 14.9 L %
(20.5-51.1)
Chloride 110 H mmol/L
(98-107)
BUN 22 H mg/dl
(9-20)
Creatinine 0.6 L mg/dL
(0.7-1.3)
Glucose 126 H mg/dl
(70-99)
Calcium 8.1 L mg/dl
(8.4-10.2)
Total Protein 6.2 L g/dl
(6.3-8.2)
Ur Occult Blood Reflex 4+ A
(Negative)
Leukocyte Esterase Rfl 1+ A
(Negative)
Urine RBC >100 A /HPF
(0-2)
Urine Glucose 1+ A
(Negative)
Urine Albumin (Reflex) 4+ A
(Neg - Trace)
06/29/25 18:38
06/29/25 18:38
Vital Signs
Initial and Last Documented VS:
Initial Vital Signs
BP Pulse Ox
162/79 98
06/29/25 18:16 06/29/25 18:16
Last Documented Vital Signs
Temp Pulse Resp BP Pulse Ox
98.1 F 109 19 149/82 97
06/29/25 18:18 06/29/25 22:00 06/29/25 22:00 06/29/25 22:00 06/29/25 22:00
MDM/Problems Addressed
Differential Diagnosis Includes:
Radiation cystitis, urinary tract infection, bladder outlet obstruction
MDM/Problems Addressed:
Patient presents with hematuria. He is on Plavix and aspirin which was thought to be the reason he denies hematuria during his recent admission. Patient was doing okay until today when he is again passing clots and having some urinary retention
because of clots. Continuous bladder irrigation initiated. Patient is not anemic. Will require hospitalization for CBI
EKG has a lot of artifact however the patient does not any chest pain and he is only here for hematuria. I do not believe a repeat EKG is necessary or indicated.
*Pulse Oximetry
SaO2: 97
Oxygen Mode of Delivery: Room air
Patient hypoxic: no
*EKG
Interpreted by ED Provider?: Yes
Interpretation: normal
Heart Rate: 95
Ischemia: other (Artifact)
*[employer] Hoist Operator Interpretation
Rate: normal
Interpretation: normal
Rhythm: sinus
*Critical Care Note
Total Time (30-74mins, 75-104mins- exclusive of procedures): Not Applicable
Data Reviewed
Review of Other/Old Records Reveals: Progress Notes and Discharge Summary
Patient Management
Social determinants of health affecting care: Living situation
ED Attending Note
-
Portions of this chart may have been created with voice recognition software.� Occasional wrong word or��sound alike� substitutions may have occurred due to the inherent limitations of voice recognition software.
Discharge Plan
Departure
Patient Disposition: Admit
Date of Disposition: 06/29/25
Time of Disposition: 22:30
Presentation/result/management discussed w/ accepting MD/DO: Hospitalist
Condition: Fair
Discharge Problem:
Hematuria, Acute urinary retention
Prescriptions:
No Action
quetiapine 25 mg Tablet
25 mg PO HS
atorvastatin 40 mg tablet
40 mg PO HS
zinc acetate 50 mg (zinc) Capsule
50 mg PO DAILY
carbidopa-levodopa 50-200 mg tablet extended release
1 tab PO HS
acetaminophen 500 mg Tablet
500 mg PO BIDPRN PRN (Reason: mild pain)
flaxseed oil 1,000 mg Capsule
1,000 mg PO DAILY
entacapone 200 mg tablet
200 mg PO TID
ascorbic acid (vitamin C) 500 mg Tablet
500 mg PO DAILY
calcium polycarbophil 625 mg Tablet
625 mg PO BID
docusate sodium 100 mg Capsule
100 mg PO DAILY
vitamin B complex Tablet
1 tab PO DAILY
carbidopa-levodopa 25-100 mg Tablet
1 tab PO Q3H
coenzyme Q10 [Co Q-10] 100 mg Capsule
100 mg PO BID
rasagiline 1 mg tablet
1 mg PO DAILY
clopidogrel 75 mg tablet
75 mg PO DAILY
Rx Instructions:
start 06/09/25
aspirin 81 mg Tablet
81 mg PO DAILY
Rx Instructions:
start 06/09/25
quetiapine 25 mg Tablet
25 mg PO Q8HPRN PRN (Reason: agitation) Qty: 10 0RF
cetirizine 10 mg Tablet
10 mg PO DAILYPRN PRN (Reason: allergy) Qty: 0 0RF
magnesium hydroxide [Milk of Magnesia] 400 mg/5 mL Suspension
30 ml PO DAILY PRN (Reason: constipation)
Rx Instructions:
give on day 4 of no BM
bisacodyl [Dulcolax (bisacodyl)] 10 mg Suppository
10 mg TX DAILY PRN (Reason: constipation)
Rx Instructions:
if MOM ineffective, give on day 5 of no BM
Fleet Enema Extra 19-7 gram/197 mL Enema
197 ml TX ONCE
Rx Instructions:
if dulcolax ineffective, give on day 6 of no BM
Referrals:
Fani Duff DO [Family Provider, General]
Interventions
Interventions:
*Risk Screen - Suicide Last Done: 06/29/25 18:20
*General Assessment Last Done: 06/29/25 18:20
*Neglect/Abuse Screening Last Done: 06/29/25 18:20
*ED- Fall Risk Assessment Last Done: 06/29/25 18:20
*ED COVID-19 Vaccine History Last Done: 06/29/25 18:20
ED-Male Genitourinary Assessment Last Done: 06/29/25 18:22
Discharge Date and Time
Print Language: VIETNAMESE
[2025-06-29] MEDS: SEROQUEL 25 MG PO (22:32)
--- NOTE | 2025-06-29 22:49 | HPS.HSE ---
Family Physician
-
Family Physician: Fani Duff, DO
Chief Complaint
-
hematuria
History of Present Illness
HPI
85M [facility], with Dementia , PKDz with dementia CA prostate , HX hematuria due to DAPL seen at ER:
- for evaluation of hematuria with clots.
- was recently hospitalized for similar issue at which point he had continuous bladder irrigation.
- taking both Plavix and aspirin.
- was noted by staff at [facility] to have decreased urine output.
- was blood and clots.
- complaining of suprapubic pain as well.
No fever or chills.
Medical History
Past Medical History
Past Medical History: Reports Other (as per HPI)
Past Surgical History: Reports None (N/A)
Social History
Tobacco: Non-smoker
Alcohol: None
Drug: None
Family History
Family History: Not pertinent
Allergies / Home Medications
Allergies reflects when Allergies were last updated in [employer]
Home Medications with original date entered in [employer]
Allergy/Medication List:
Rasagiline 1mg PO daily
Lipitor 40mg PO daily
ASA 81mg PO daily
Plavix 75mg PO daily
Sinemet 25/100mg 1 tab Q3H
Sinemet 50/200mg 1 tab QHS
Entacapone 200mg (frequency unknown)
Review of Systems
-
Unable to obtain full review of systems at this time due to: Dementia
Physical Exam
Vital Signs
Vital Signs
Temp Pulse Resp BP Pulse Ox
98.1 F 109 19 149/82 97
06/29/25 18:18 06/29/25 22:00 06/29/25 22:00 06/29/25 22:00 06/29/25 22:00
Physical Exam
General: Well Developed, Well Nourished and Other; No Conversant
HEENT: NormoCephalic, Moist mucous membranes and Atraumatic
Respiratory: Clear
Cardiac: S1/S2 and Regular Rhythm; No Murmur or Rub
GI: Soft, Non Tender, Non Distended and Normal Bowel Sounds; No Organomegaly
Rectal: Deferred by Provider
Musculoskeletal: No Clubbing, No Cyanosis and No Edema
Skin: No Rash
Neuro: Nonfocal/grossly intact
Psych: Confused; No Agitated
Laboratory Results
-
06/29/25 18:38
06/29/25 18:38
Laboratory Results
PT 14.3 Sec (11.4-14.6) 06/29/25 18:38
INR 1.08 06/29/25 18:38
APTT 26.8 Sec (23.4-35.0) 06/29/25 18:38
Total Bilirubin 0.5 mg/dl (0.2-1.3) 06/29/25 18:38
AST 20 U/L (17-59) 06/29/25 18:38
ALT < 10 U/L (0-50) 06/29/25 18:38
Alkaline Phosphatase 93 U/L (38-126) 06/29/25 18:38
Data Reviewed
-
Lab Data: Labs Reviewed by me
Old Records: Reviewed
Impression/Plan
-
Vital Signs
Temp Pulse Resp BP Pulse Ox
98.1 F 109 19 149/82 97
06/29/25 18:18 06/29/25 22:00 06/29/25 22:00 06/29/25 22:00 06/29/25 22:00
Laboratory Tests
06/25/25 06/29/25
06:00 18:38
WBC 7.9 10.2
Hgb 9.3 L 9.7 L
INR 1.08
BUN 22 H
Creatinine 0.6 L
eGFR > 60.00
EKG
SINUS RHYTHM WITH OCCASIONAL PREMATURE VENTRICULAR COMPLEXES
SEPTAL INFARCT , AGE UNDETERMINED
INFERIOR INJURY PATTERN
ACUTE WV / STEMI
Consider right ventricular involvement in acute inferior infarct
ABNORMAL ECG
WHEN COMPARED WITH ECG OF 11-Jun-2025 17:39,
ST NO LONGER DEPRESSED IN LATERAL LEADS
QT HAS LENGTHENED
Last hospitalist admission: Date of Admission: 06/08/25 - Date of Discharge: 06/20/25
DC Dx:Hematuria: Acute blood loss anemia due to acute hematuria exacerbated by aspirin and Plavix, back on his medications, no hematuria
ASSESSMENT & PLAN
Recurrence of hematuria - exacerbated by Plavix/ASA
- stable Hgb
- associated with clot retention with decreased UO
- initiate CBI
- Hold Plavix and ASA - resumed on 06/11 and 06/14 repectively
- IVFs
- Urology consulted
Parkinson's with resulting dementia
S/P unilateral brain stim implanted for the right side which said was very efficacious.
- Continue Sinemet/Entacapone
- on Seroquel to 25 mg HS and PRN
HLD:
- Continue statin
DVT Px: SCD
Full code
IP MS
--- NOTE | 2025-06-29 23:29 | W.PN.URO.CBU ---
Today's Communication / Plan
-
- Continue CBI, hand irrigate prn clot obstruction
- HOLD aspirin and Plavix
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
- NPO@MN in case cystoscopy/clot evacuation/fulguration indicated tomorrow
Assessment / Plan
-
Recurrent urinary retention
Suspected rapid decompression hematuria w/ clot retention
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
Recently discharged 06/21 w/ successful voiding trial and no hematuria.
Readmitted now w/ hematuria and clot urinary retention.
CT imaging (06/08) => w/ clots in dependent bladder w/o visible mass or tumor noted.
Diagnosis
-
Date of Service: June 29, 2025
-
Patient Diagnosis:
Recurrent urinary retention
Suspected rapid decompression hematuria w/ clot retention
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
3-way catheter irrigated @bedside this afternoon w/ return of small volume clots and clearing of urine to light pink.
CT imaging (06/08) w/ clots in dependent bladder w/o visible mass or tumor noted.
Subjective
-
Pleasantly demented.
Denies suprapubic or abdominal pain.
Objective
-
Vital Signs
Temp Pulse Resp BP Pulse Ox
98.1 F 107 16 157/84 98
06/29/25 18:18 06/29/25 23:15 06/29/25 23:15 06/29/25 23:03 06/29/25 23:15
Intake and Output
06/28/25 06/29/25 06/30/25
06:59 06:59 06:59
Output Total 1650 / 1650
Balance -1650 / -1650
Output:
True Urine Output from CBI 1650 / 1650
Laboratory Results
06/29/25 18:38
06/29/25 18:38
Physical Exam
-
General - well developed, well nourished, no acute distress
Abdomen - soft, non-tender, no CVAT
Genitalia - normal
Skin - warm & dry with no rash
Neuro - pleasantly demented
Extremities - no clubbing, no cyanosis, no edema
Care Review
Data Reviewed
Discussed with: Hospitalist
CT Scan: Report Pers Reviewed and Image Pers Reviewed
[2025-06-30] VITALS (11 sets, daily range): BP systolic 85–120; BP diastolic 45–69; BMI 23.5
[2025-06-30] MEDS: NSS 1000 IV ×2 (00:56→20:43)
[2025-06-30] MEDS: SINEMET 25-100 PO (00:57)
[2025-06-30] MEDS: FLEET PHOSPHATE ENEMA-ADULT 135 ML RECTAL (03:03)
[2025-06-30] MEDS: SINEMET 25-100 1 TABLET PO ×8 (03:04→23:48)
--- NOTE | 2025-06-30 04:31 | PTCARENOTE ---
pt arrived to floor w/ CBI. Advance CBI to run high. urine bloody w/ multiple quater size and smaller clots being irrigated [id number] and smaller ones in bag. pt is also passing clots through his meatus. pt reports pain- but once irrigated pain goes
away.
pt given enema +effect. mod bloody bm.
pt is on bed alarm. w/ call molina in reach
--- NOTE | 2025-06-30 07:14 | W.PN.HOSP.TC ---
Today's Communication/Plan
-
- H&H at 14:00
- f/u cardiology recommendations
Assessment / Plan
Assessment / Plan
Hematuria
- recurrence, per urology, likely explanation is acute urinary retention causing bladder expansion, and then rapid decompression led to bloody urine output, especially in setting of dual antiplatelet therapy
- per urology, no need for OR today
- Hgb drop from 9.7 to 7.4; transfuse if below 7
- CBI ongoing
- Holding Plavix and ASA - resumed on 06/11 and 06/14 repectively
- IVFs
- Urology following
- cardiology consulted
- H&H at 14:00
Bladder spasms
- received 1x dose of oxybutynin 5mg
Parkinson's with resulting dementia
S/P unilateral brain stim implanted for the right side which said was very efficacious.
- Continue Sinemet/Entacapone
- rasagiline 1mg PO daily
- on Seroquel to 25 mg HS and PRN
HLD:
- Continue statin
Disposition:
- Came from [facility]
- touch base with case management
Anticipated Discharge: 24 - 48 hours
Subjective/Interval History
-
Date of Service: June 30, 2025
85 yo M p/w hematuria yesterday with clots
had a similar issue last week and at [facility], staff noted he had decreased urinary output.
outpatient taking both plavix and aspirin, which are being held, urology was consulted and continuous bladder irrigation was started
Labs n/f 9.7 Hgb that was 7.4 this morning
subjectively, he denies fatigue, dizziness, or lightheadedness. endorses some suprapubic tenderness
Objective Data
-
Labs:
Laboratory Results
06/30/25
05:17
WBC Pending
Hgb Pending
Hct Pending
Plt Count Pending
Sodium Pending
Potassium Pending
Chloride Pending
Carbon Dioxide Pending
BUN Pending
Creatinine Pending
Glucose Pending
Calcium Pending
Hgb 7.4 from 9.7
electrolytes were within normal limits
Vital Signs:
Vital Signs
Temp Pulse Resp BP Pulse Ox
98.6 F 94 20 95/54 97
06/30/25 07:09 06/30/25 07:09 06/30/25 07:09 06/30/25 07:09 06/30/25 07:09
I&O
06/29/25 06/30/25 07/01/25
06:59 06:59 06:59
Intake Total 360 / 360
Output Total 2049 / 2049
Balance -1690 / -1690
sanginous red urine output
Physical Exam
-
General: Comfortable
HEENT: Normocephalic and Atraumatic
Respiratory: Clear to Auscultation
Cardiac: Regular Rhythm and Other (no murmurs)
GI: Soft
Genito-urinary: Continuous Bladder Irrigation and Other (suprapubic tenderness)
Neuro: Awake, Alert and Other (DBS device implanted right chest)
Psych: Calm
[2025-06-30 07:27] LABS: Blood Urea Nitrogen 27 mg/dl (9-20); Calcium 8.0 mg/dl (8.4-10.2); Carbon Dioxide 25 mmol/L (22-30); Chloride 107 mmol/L (98-107); Estimated Creatinine Clearance 77 ml/min; Glucose 120 mg/dl (70-99); Potassium 4.3 mmol/L (3.5-5.1); Sodium 136 mmol/L (135-145); eGFR > 60.00
[2025-06-30 08:05] LABS: Hematocrit 23.0 % (39.0-52.0); Hemoglobin 7.4 g/dL (13.0-18.0); Mean Corp Hgb Conc. 32.2 g/dL (33.0-37.0); Mean Corpuscular Volume 100.4 fL (80.0-94.0); Platelet Count 240 10^3/uL (130-400); Red Cell Dist. Width 14.1 % (11.5-14.5)
[2025-06-30] MEDS: RASAGILINE MESYLATE 1 MG PO (08:16)
[2025-06-30] MEDS: COMTAN 200 MG PO ×3 (08:16→21:38)
[2025-06-30] MEDS: DITROPAN 5 MG PO (11:26)
[2025-06-30] MEDS: TYLENOL 650 MG PO (11:26)
[2025-06-30] MEDS: SEROQUEL 25 MG PO ×2 (11:47→21:38)
--- NOTE | 2025-06-30 12:20 | CON.CAR ---
Addendum entered and electronically signed by Ray Almodovar MD 06/30/25 13:57:
I saw and examined the patient.
The BIOINFORMATICS DEVELOPER or PA's note was reviewed and I agree with the note.
Comment: General: Agitated and confused
Neck: Supple, no JVD, HJR, carotids +2 B/L, no bruits bilaterally.
Heart: Non displaced PMI, RRR, no murmurs, No S3, S4, no rubs.
Lungs: Clear to auscultation bilaterally, no wheeze, rhonchi, rubs bilaterally,
normal expiratory phase.
Abdomen: Normal bowel sounds, soft, non-tender, non-distended.
Extremities: No clubbing, cyanosis or edema bilaterally.
Neuro: Agitated and confused
Michael has a history of CAD status post stenting at [facility] possibly more than a year ago, history of valve surgery, [employer] pacemaker, hyperlipidemia, Parkinson disease, dementia. He presents from [facility] with hematuria.
Cardiology is consulted to ask about aspirin and Plavix. Patient confused at present.
Will try to obtain records. If stent was more than 1 year ago likely can discontinue Plavix permanently. Discussed with nursing
Original Note:
Consultation
Consultation Request
Date/Time Consultation Requested: 06/30/2025,09 53
Date/Time Consultation Performed: 06/30/2025, 1227
Requesting Provider: Dr. Mittal
Performing Provider: ESTEVAN Ybarra for Dr. Almodovar
Reason for Consultation: Hematuria, on aspirin and Plavix for history of CAD
Medical History
-
Chief Complaint: Hematuria
History of Present Illness:
85-year-old male with past medical history CAD status post stenting at [facility] (unknown date, he reports about a year ago), reported history of valve surgery, pacemaker ([employer]), hyperlipidemia, Parkinson's disease, dementia,
presents to [facility] ED on 06/29/2025 from [facility] for hematuria with clots. Hemoglobin 9.7 on admission, dropped to 7.4 today, 06/30/2025.
He was recently hospitalized at [facility] 06/08/2025 - 06/20/2025 for gross hematuria. Aspirin and Plavix were held and he had CBI initiated. He was followed by urology. He was restarted on aspirin and Plavix at time of discharge. Cardiology not
consulted during previous admission.
Cardiology consulted to discuss cessation of DAPT long-term.
Past medical history:
Parkinson's disease
Dementia
CAD status post stenting-date unknown
Pacemaker, [employer] per pt
Hematuria 05/2025, recurrent admission 06/29/2025
Hyperlipidemia
Past Medical History
Past Medical History: Other (As above)
Past Surgical History: Cholecystectomy (pacemaker, cardiac stenting)
Social History
Tobacco: Non-Smoker
Alcohol: None
Living: Assisted Living ([place] [facility])
Family History
Family History: Unable to Obtain
Allergies / Home Medications
Allergy/AdvReac Type Severity Reaction Status Date / Time
Sulfa (Sulfonamide Allergy Unknown Unknown Verified 06/29/25 18:39
Antibiotics)
�Medication �Instructions �Recorded �Confirmed �Type
acetaminophen 500 mg tablet 500 mg PO BIDPRN PRN mild pain 06/08/25 06/29/25 History
ascorbic acid (vitamin C) 500 mg 500 mg PO DAILY Supplement 06/08/25 06/29/25 History
tablet
aspirin 81 mg tablet 81 mg PO DAILY Blood Clot 06/08/25 06/29/25 History
Prevention/Tx
atorvastatin 40 mg tablet 40 mg PO HS cholesterol 06/08/25 06/29/25 History
calcium polycarbophil 625 mg tablet 625 mg PO BID constipation 06/08/25 06/29/25 History
carbidopa 25 mg-levodopa 100 mg 1 tab PO Q3H parkinson's disease 06/08/25 06/29/25 History
tablet
carbidopa ER 50 mg-levodopa 200 mg 1 tab PO HS parkinson's disease 06/08/25 06/29/25 History
tablet,extended release
clopidogrel 75 mg tablet 75 mg PO DAILY Blood Clot 06/08/25 06/29/25 History
Prevention/Tx
coenzyme Q10 100 mg capsule (Co 100 mg PO BID Supplement 06/08/25 06/29/25 History
Q-10)
docusate sodium 100 mg capsule 100 mg PO DAILY Constipation 06/08/25 06/29/25 History
entacapone 200 mg tablet 200 mg PO TID parkinson's disease 06/08/25 06/29/25 History
flaxseed oil 1,000 mg capsule 1,000 mg PO DAILY Supplement 06/08/25 06/29/25 History
quetiapine 25 mg tablet 25 mg PO HS Mental Health/Anxiety 06/08/25 06/29/25 History
rasagiline 1 mg tablet 1 mg PO DAILY parkinson's disease 06/08/25 06/29/25 History
vitamin B complex 1 tab PO DAILY Supplement 06/08/25 06/29/25 History
zinc acetate 50 mg (zinc) capsule 50 mg PO DAILY Supplement 06/08/25 06/29/25 History
cetirizine 10 mg tablet 10 mg PO DAILYPRN PRN allergy #0 06/20/25 06/29/25 Rx
tabs
quetiapine 25 mg tablet 25 mg PO Q8HPRN PRN agitation #10 06/20/25 06/29/25 Rx
tabs
bisacodyl 10 mg rectal suppository 10 mg AR DAILY PRN constipation 06/29/25 06/29/25 History
(Dulcolax (bisacodyl))
magnesium hydroxide 400 mg/5 mL 30 ml PO DAILY PRN constipation 06/29/25 06/29/25 History
oral suspension (Milk of Magnesia)
sodium phosphates 19 gram-7 197 ml AR ONCE Constipation 06/29/25 06/29/25 History
gram/197 mL enema (Fleet Enema
Extra)
Review of Systems
-
Unable to obtain full review of systems at this time due to: Dementia
History Source: Patient
All other systems: Negative unless noted (Denies chest pain, shortness of breath, palpitations, lightheadedness, edema, PND, orthopnea)
Physical Exam
Vital Signs
Temp Pulse Resp BP Pulse Ox
98.6 F 94 20 95/54 97
06/30/25 07:09 06/30/25 07:09 06/30/25 07:09 06/30/25 07:09 06/30/25 07:09
Lab Results
06/30/25 05:17
GEN: No distress, awake, Ox3
HEENT: supple, anicteric, mmm
LUNGS: CTA, no wheezes/rales
CV: Reg, S1/S2, no murmur
ABD: soft, BS+, NT/ND
EXT: No edema
NEURO: Gross non-focal
SKIN: No rash
Impression / Plan
-
PCP: Fani Duff
Primary actuary: Erica Godfrey
Impression:
Hematuria
Acute anemia
CAD status post stenting-on aspirin and Plavix
Pacemaker, [employer]
Hyperlipidemia
Valve disorder?
Parkinson's disease
Dementia
Previous cardiovascular testing: Awaiting results from primary actuary
Plan:
- Presents with hematuria, second admission to [facility] in past month, now with anemia with 2 g drop in hemoglobin overnight to 7.4
- Hold Plavix and aspirin
- Obtaining records from previous actuary. Patient thinks stenting was about a year ago and therefore could likely stop Plavix long-term
-denies CP
- EKG atrially paced with PVC
-cont atorvastatin for hyperlipidemia/CAD
Data Reviewed
-
EKG: Tracing Personally Visualized and interpreted
Labs: Labs Reviewed by me
[2025-06-30 14:25] LABS: Hematocrit 18.9 % (39.0-52.0); Hemoglobin 6.1 g/dL (13.0-18.0)
--- NOTE | 2025-06-30 15:05 | CM ---
CM following re: discharge planning.
Reviewed pt's chart, met with pt.
Pt is an 85 year old male, admitted with primary dx of recurrent hematuria.
Pr is well known to this CM from previous admission. Pt used to live with spouse [facility] and spouse made many efforts to place her in a preferred memory care facilities in [facility]. Pt was placed to [facility] for a short term rehab and
transitioning to memory care unit. Pt's spouse submitted all requested financial information to [facility] and pt was approved.
CM spoke to [facility] director patient and she confirmed that pt will be accepted back if pt's spouse chooses [facility] again.
D/C plan: probably return back to [facility] with transitioning to their memory care unit.
CM will follow with discharge plan updates as hospitalization progresses
--- NOTE | 2025-06-30 16:43 | W.PN.UPDATE ---
Addendum entered and electronically signed by Hannah Schmidt PA-C 06/30/25 17:21:
Records requested, received, reviewed and summarized below by cardiology.
-Patient had RCA PCI and TAVR 2023.
-Echo 12/15/2023: GVH study, EF 60 to 65%, normal RV size and function, thickened and calcified aortic valve peak/mean 63/43 mmHg
-Cardiac cath 09/06/2024: 3 stents to the proximal, mid and mid to distal RCA
-Patient had a #26 [employer] YOUNG 3 ultra valve TAVR on 10/17/2024
Current cardiovascular recommendation is to continue to hold Plavix especially now that we know his PCI was 10 months ago. Would recommend the patient be maintained on aspirin 81 mg daily, order placed by me.
Original Note:
Update Note
Progress Note Update
Attempting to obtain medical records from shrimp cleaner Dr. Godfrey's office. Called earlier today and requested but did not receive.
Called again now. [phone], on hold x 10 min. Will have to try again tomorrow.
[2025-06-30] MEDS: LIPITOR 40 MG PO (21:37)
[2025-06-30] MEDS: SINEMET CR 50/200 (EXTENDED RELEASE) 1 TABLET PO (21:37)
--- NOTE | 2025-06-30 23:12 | PTCARENOTE ---
blood transfusion completed. vss. no reaction noted
[2025-07-01] VITALS (7 sets, daily range): BP systolic 97–131; BP diastolic 42–58; BMI 23.9
[2025-07-01 01:40] LABS: Hematocrit 22.6 % (39.0-52.0); Hemoglobin 7.6 g/dL (13.0-18.0)
[2025-07-01] MEDS: SINEMET 25-100 1 TABLET PO ×7 (02:48→20:07)
--- NOTE | 2025-07-01 03:37 | PTCARENOTE ---
2000- CBI- bloody w/ multiple clots. CBI open wide, and irrigated multiple large clots.
later attempted to slow but clots return. Irrigated multiple times throughout the night
0300 linn output light punch able to slow rate.
[2025-07-01 06:38] LABS: Hematocrit 21.5 % (39.0-52.0); Hemoglobin 7.1 g/dL (13.0-18.0); Mean Corp Hgb Conc. 33.0 g/dL (33.0-37.0); Mean Corpuscular Volume 91.1 fL (80.0-94.0); Platelet Count 166 10^3/uL (130-400); Red Cell Dist. Width 18.4 % (11.5-14.5)
[2025-07-01 06:46] LABS: Blood Urea Nitrogen 31 mg/dl (9-20); Calcium 8.0 mg/dl (8.4-10.2); Carbon Dioxide 25 mmol/L (22-30); Chloride 108 mmol/L (98-107); Estimated Creatinine Clearance 90 ml/min; Glucose 105 mg/dl (70-99); Potassium 3.9 mmol/L (3.5-5.1); Sodium 133 mmol/L (135-145); eGFR > 60.00
--- NOTE | 2025-07-01 07:08 | W.PN.HOSP.TC ---
Today's Communication/Plan
-
- transfuse 1 unit pRBC
- H&H 12:00
- Hold ASA (plavix is d'annie per cardiology)
- f/u urology and cardiology reccomendations
Assessment / Plan
Assessment / Plan
Hematuria
- recurrence, per urology, likely explanation is acute urinary retention causing bladder expansion, and then rapid decompression led to bloody urine output, especially in setting of dual antiplatelet therapy
- received 2 units yesterday, Hgb this AM 7.1
- CBI ongoing
- Holding ASA (plavix is d/c'd per cardiology)
- IVFs
- Urology following
- cardiology following
- H&H at 12:00
- transfuse 1 unit
Bladder spasms
- received 1x dose of oxybutynin 5mg
Parkinson's with resulting dementia
S/P unilateral brain stim implanted for the right side which said was very efficacious.
- Continue Sinemet/Entacapone
- rasagiline 1mg PO daily
- on Seroquel to 25 mg HS and PRN
HLD:
- Continue statin
Disposition:
- Came from [facility]
- touch base with case management
Anticipated Discharge: > 48 hours
Subjective/Interval History
-
Date of Service: July 01, 2025
feels well this morning, denies lightheadedness, palpitations, or dizziness
catheter-based irrigation ongoing
Hgb is now 7.1
Objective Data
-
Labs:
Laboratory Results
07/01/25 07/01/25 07/01/25
01:00 01:05 05:23
WBC 7.2
Hgb Cancelled 7.6 L D 7.1 L
Hct Cancelled 22.6 L 21.5 L
Plt Count 166 D
Sodium 133 L
Potassium 3.9
Chloride 108 H
Carbon Dioxide 25
BUN 31 H
Creatinine 0.5 L
Glucose 105 H
Calcium 8.0 L
Vital Signs:
Vital Signs
Temp Pulse Resp BP Pulse Ox
97.9 F 82 16 103/53 98
07/01/25 04:24 06/30/25 23:20 06/30/25 23:20 06/30/25 23:20 06/30/25 23:20
I&O
06/30/25 07/01/25 07/02/25
06:59 06:59 06:59
Intake Total 360 / 360 1880 / 1880
Output Total 2049 / 2049 1650 / 165
Balance -1690 / -1690 230 / 230
Review of Systems
-
History Source: Patient
Constitutional: Reports No Symptoms
EENT: Reports No Symptoms Reported
Respiratory: Reports No Symptoms
Cardiac: Reports No Symptoms
Abdomen/GI: Reports No Symptoms
Genitourinary: Reports Other (some pain near penis)
Physical Exam
-
General: No Apparent Distress
HEENT: Normocephalic
Respiratory: Clear to Auscultation
Cardiac: Regular Rhythm
GI: Soft and Nontender
Genito-urinary: Continuous Bladder Irrigation and Other (suprapubic tenderness)
Musculoskeletal: No Edema
Neuro: Awake, Alert and Other
Psych: Calm and Other (occasionally perseverates in thought process by repeating same phrase)
--- NOTE | 2025-07-01 07:39 | W.PN.URO.CBU ---
Today's Communication / Plan
-
HOLD aspirin + Plavix (Plavix d/c'd permanently per Cardiology)
Continue CBI - wean as tolerated in next 24 hrs
No indication for cystoscopy at this time given gradual improvement (similar episode early 06/2025)
PRBC transfusion for acute blood loss anemia per Hospitalist
Maintain Hernández catheter on discharge
Assessment / Plan
-
Recurrent urinary retention
Rapid decompression hematuria w/ clot retention
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
Recently discharged 06/21 w/ successful voiding trial and no hematuria.
Readmitted now w/ hematuria and clot urinary retention.
CT imaging (06/08) => w/ clots in dependent bladder w/o visible mass or tumor noted.
Plavix held starting 06/30 (>24 hrs) - will require Plavix washout to reduce bleeding risk (compounded by radiation cystitis).
Hematuria improved in >24 hrs since admission.
Diagnosis
-
Date of Service: July 01, 2025
-
Patient Diagnosis:
Recurrent urinary retention
Rapid decompression hematuria w/ clot retention
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
Subjective
-
Denies suprapubic/abdominal pain.
Ordering breakfast.
CBI running @medium rate w/ clear urine in tubing - light punch urine in drainage bag.
Objective
-
Vital Signs
Temp Pulse Resp BP Pulse Ox
97.9 F 82 16 103/53 98
07/01/25 04:24 06/30/25 23:20 06/30/25 23:20 06/30/25 23:20 06/30/25 23:20
Intake and Output
06/30/25 07/01/25 07/02/25
06:59 06:59 06:59
Intake Total 360 / 360 1880 / 1880
Output Total 2049 3050 / 305
Balance -1690 / -1690 -1170 / -1170
Intake:
Oral fluids 900 / 900
IV fluids (Total) 360 / 360 480 / 480
Blood Product Amount Infused ( 500 / 500
mL)
Packed Rbc Leukoreduced Unit 250 / 250
[id number]
Packed Rbc Leukoreduced Unit 250 / 250
[id number]
Output:
True Urine Output from CBI 2049 305 / 3049
Laboratory Results
07/01/25 05:23
Physical Exam
-
General - well developed, well nourished, no acute distress
Abdomen - soft, non-tender, non-distended
- 24Fr 3-way catheter w/ clear to faintly pink outflow on medium rate CBI
Skin - warm & dry with no rash
Neuro - pleasantly demented, awake
Extremities - no clubbing, no cyanosis, no edema
Care Review
Data Reviewed
Discussed with: Hospitalist and Nursing
Total Time Spent with Patient (in minutes): 25
[2025-07-01] MEDS: LOW STRENGTH ASPIRIN 81 MG PO (08:35)
[2025-07-01] MEDS: RASAGILINE MESYLATE 1 MG PO (08:35)
[2025-07-01] MEDS: COMTAN 200 MG PO ×3 (08:35→22:23)
--- NOTE | 2025-07-01 08:59 | W.PN.CARDCBS ---
Today's Communication / Plan
-
Cont ASA
Remain off Plavix as almost one year from PCI and with recurrent hematuria.
Outpt follow up with his sourcing analyst to be arranged
Stable cv status, please recall if needed.
Impression / Plan
-
.
PCP: Fani Duff
Primary sourcing analyst: Erica Godfrey
Impression:
Hematuria, second admit this month
Acute anemia
CAD s/p PCI RCA Aug 2024 [facility] on aspirin and Plavix on admit
TAVR Oct 2024 [facility]
Pacemaker, [employer]
Hyperlipidemia
Parkinson's disease
Dementia
-Patient had RCA PCI and TAVR 2023.
-Echo 12/15/2023: GVH study, EF 60 to 65%, normal RV size and function, thickened and calcified aortic valve peak/mean 63/43 mmHg
-Cardiac cath 09/06/2024: 3 stents to the proximal, mid and mid to distal RCA
-Patient had a #26 [employer]NG 3 ultra valve TAVR on 10/17/2024
Plan:
Michael has a history of CAD status post TAVR Oct 2024 and PCI RCA in Aug 2024 [facility], history of valve surgery, [employer] pacemaker, hyperlipidemia, Parkinson disease, dementia. He presents from [facility] with hematuria. Cardiology is
consulted to ask about aspirin and Plavix. Patient has been confused.
Records obtained and can hold Plavix as pt is almost 1 year from PCI. Continue ASA given PCI hx.
Cont statin for hx CAD
Cont tx hematuria as per urology.
Discussed with nursing
Outpt follow up with his sourcing analyst to be arranged
Stable cv status, please recall if needed.
Progress Note - Field Counsel
Subjective
Date of Service: July 01, 2025
Pt seen and examined. No cp or dyspnea.
Objective
Labs:
07/01/25 05:23
Labs
Hgb 7.1 g/dL (13.0-18.0) L 07/01/25 05:23
Hct 21.5 % (39.0-52.0) L 07/01/25 05:23
Plt Count 166 10^3/uL (130-400) D 07/01/25 05:23
PT 14.3 Sec (11.4-14.6) 06/29/25 18:38
INR 1.08 06/29/25 18:38
APTT 26.8 Sec (23.4-35.0) 06/29/25 18:38
Sodium 133 mmol/L (135-145) L 07/01/25 05:23
Potassium 3.9 mmol/L (3.5-5.1) 07/01/25 05:23
BUN 31 mg/dl (9-20) H 07/01/25 05:23
Creatinine 0.5 mg/dL (0.7-1.3) L 07/01/25 05:23
Glucose 105 mg/dl (70-99) H 07/01/25 05:23
Vital Signs and I&O:
Vital Signs
Temp Pulse Resp BP Pulse Ox
97.9 F 66 16 99/42 99
07/01/25 06:55 07/01/25 06:55 07/01/25 06:55 07/01/25 06:55 07/01/25 06:55
Vital Signs
Temp Pulse Resp BP Pulse Ox
97.9 F 66 16 99/42 99
07/01/25 06:55 07/01/25 06:55 07/01/25 06:55 07/01/25 06:55 07/01/25 06:55
Intake & Output
06/29/25 06/30/25 07/01/25 07/02/25
06:59 06:59 06:59 06:59
Intake Total 360 / 360 1880 / 1880
Output Total 2049 / 2049 3050 / 305
Balance -1690 / -1690 -1170 / -1170
Physical Exam
Physical Exam
General: No acute distress, awake and alert
Neck: Negative JVD
Heart: Regular, Negative S3 positive S1/S2, Negative S4, No murmur
Lungs: CTA b/l, negative wheezes/rales/rhonchi
Abd: Positive BS, NT/ND, neg rebound/rigidity/guarding
Ext: Negative cyanosis/clubbing/edema
Neuro: nonfocal
[2025-07-01 14:49] LABS: Hematocrit 25.9 % (39.0-52.0); Hemoglobin 8.8 g/dL (13.0-18.0)
[2025-07-01] MEDS: TRANEXAMIC ACID 100 IV (16:55)
[2025-07-01] MEDS: SEROQUEL 25 MG PO (20:53)
[2025-07-01] MEDS: DITROPAN 5 MG PO (22:11)
[2025-07-01] MEDS: LIPITOR 40 MG PO (22:23)
[2025-07-01] MEDS: SINEMET CR 50/200 (EXTENDED RELEASE) 1 TABLET PO (22:24)
[2025-07-02] VITALS (7 sets, daily range): BP systolic 95–116; BP diastolic 46–54; BMI 23.6
[2025-07-02] MEDS: SINEMET 25-100 PO (00:46)
--- NOTE | 2025-07-02 02:38 | DOWNTIME ---
There was a [employer] Client Project Accountant Downtime on 07/02/2025 from 0100 to 07/02/2025 at 0235. Downtime documentation of patient's care, including medication administrations, has been reconciled in the electronic record per guidelines. Refer to the
patient's paper chart under the miscellaneous tab to see printed paper medication records and downtime forms.
[2025-07-02] MEDS: SINEMET 25-100 1 TABLET PO ×8 (03:51→23:27)
[2025-07-02 04:24] LABS: Hematocrit 25.1 % (39.0-52.0); Hemoglobin 8.4 g/dL (13.0-18.0); Mean Corp Hgb Conc. 33.5 g/dL (33.0-37.0); Mean Corpuscular Volume 90.9 fL (80.0-94.0); Platelet Count 174 10^3/uL (130-400); Red Cell Dist. Width 17.9 % (11.5-14.5)
[2025-07-02 04:48] LABS: Blood Urea Nitrogen 20 mg/dl (9-20); Calcium 8.5 mg/dl (8.4-10.2); Carbon Dioxide 25 mmol/L (22-30); Chloride 109 mmol/L (98-107); Estimated Creatinine Clearance 90 ml/min; Glucose 106 mg/dl (70-99); Potassium 4.0 mmol/L (3.5-5.1); Sodium 135 mmol/L (135-145); eGFR > 60.00
--- NOTE | 2025-07-02 05:00 | PTCARENOTE ---
CBI with bloody urine and pt complaining of abd pain; attempted irrigation, pt relieved for short time only; placed CBI wide open. pt complained of clots, multiple irrigation attempts. Spoke w WATER FILTERER HELPER, Jamshid, obtained 1x dose Ditropin w/ positive effect.
Attempted to decrease rate of CBI, pt unable to tolerate, returned CBI wide open.
[2025-07-02] MEDS: TYLENOL 650 MG PO ×2 (06:35→13:44)
[2025-07-02] MEDS: SEROQUEL 25 MG PO ×2 (06:36→20:44)
--- NOTE | 2025-07-02 07:09 | W.PN.HOSP.TC ---
Addendum entered and electronically signed by Ray Baker DO 07/03/25 18:20:
CDI: Hyponatremia, mild, CTM
Original Note:
Today's Communication/Plan
-
- f/u urology recs
- monitor CBI output
- monitor CBC
- f/u agitation
Assessment / Plan
Assessment / Plan
Hematuria
Acute blood loss anemia
- recurrence, per urology, likely explanation is acute urinary retention causing bladder expansion, and then rapid decompression led to bloody urine output, especially in setting of dual antiplatelet therapy
- Hgb stable 8.4
- CBI ongoing; urology switched out the catheter
- ASA 81mg (plavix is d/c'd per cardiology)
- IVFs
- Urology following - gave tranexamin acid 1000mg x1; possible OR
- cardiology following
- monitor CBC
- upon discharge, will need linn catether in place
Agitation
- 0.5 mg ativan PO once
- repeatedly has moved his left upper extremity up/down
- if continues to agitated, consider increasing quetiapine
Bladder spasms
- received 1x dose of oxybutynin 5mg
Parkinson's with resulting dementia
S/P unilateral brain stim implanted for the right side which said was very efficacious.
- Continue Sinemet/Entacapone
- rasagiline 1mg PO daily
- on Seroquel to 25 mg HS and PRN
CAD
- continue aspirin 81mg
- continue statin
HLD:
- Continue statin
Disposition:
- Came from [facility]
- touch base with case management and PT/OT
Anticipated Discharge: 24 - 48 hours
Subjective/Interval History
-
Date of Service: July 02, 2025
very agitated this am,
urology at bedside and replaced catheter and continued bladder irrigation with few clots coming out
output is serosanguinous and appears clearer than yesterday
Objective Data
-
Labs:
Laboratory Results
07/02/25
04:14
WBC 9.2
Hgb 8.4 L
Hct 25.1 L
Plt Count 174
Sodium 135
Potassium 4.0
Chloride 109 H
Carbon Dioxide 25
BUN 20
Creatinine 0.5 L
Glucose 106 H
Calcium 8.5
hgb stable at 8.4
Vital Signs:
Vital Signs
Temp Pulse Resp BP Pulse Ox
98.1 F 78 16 97/43 98
07/01/25 23:00 07/01/25 23:00 07/01/25 23:00 07/01/25 23:00 07/01/25 23:00
I&O
07/01/25 07/02/25 07/03/25
06:59 06:59 06:59
Intake Total 1880 / 1880 1907 / 1907 480 / 480
Output Total 3050 / 3050 5200 / 6000 800 / 800
Balance -1170 / -1170 -3293 / -4093 -320 / -320
Review of Systems
-
History Source: Patient
Constitutional: Reports No Symptoms
EENT: Reports No Symptoms Reported
Respiratory: Reports No Symptoms
Cardiac: Reports No Symptoms
Abdomen/GI: Reports No Symptoms
Genitourinary: Reports Other (suprapubic tenderness)
Psych: Reports Other (agitated )
Physical Exam
-
General: No Apparent Distress
HEENT: Normocephalic
Respiratory: Clear to Auscultation
Cardiac: Regular Rhythm
GI: Soft and Nontender
Genito-urinary: Continuous Bladder Irrigation and Other (suprapubic tenderness)
Musculoskeletal: No Edema
Neuro: Awake, Alert and Other
Psych: Other (very agitated this morning, occasionally perseverates in thought process by repeating same phrase)
[2025-07-02] MEDS: COMTAN 200 MG PO ×3 (07:19→20:53)
[2025-07-02] MEDS: LOW STRENGTH ASPIRIN 81 MG PO (07:19)
[2025-07-02] MEDS: RASAGILINE MESYLATE 1 MG PO (07:19)
--- NOTE | 2025-07-02 07:35 | W.PN.URO.CBU ---
Today's Communication / Plan
-
24Fr 3-way catheter placed (upsized from ED) => outflow dramatically improved
Hold aspirin (Plavix permanently d/c'd)
Tranexamic acid 1000 mg x1 today
NPO in case cystoscopy/clot evac/fulguration indicated later in afternoon - will reassess outflow mid-day
D/w RN.
D/w Hospitalist.
Assessment / Plan
-
Recurrent urinary retention
Rapid decompression hematuria w/ clot retention
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
Recently discharged 06/21 w/ successful voiding trial and no hematuria.
Readmitted now w/ hematuria and clot urinary retention.
CT imaging (06/08) => w/ clots in dependent bladder w/o visible mass or tumor noted.
Plavix held starting 06/30 - d/c'd permanently per Cardiology.
Required PRBC tranfusion in last 48 hrs.
07/02: H/H stable, 3-way catheter upsized from ED placement (now 24Fr) - hand-irrigated this AM w/ clear outflow and only small clots.
Diagnosis
-
Date of Service: July 02, 2025
-
Patient Diagnosis:
Recurrent urinary retention
Rapid decompression hematuria w/ clot retention
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
Subjective
-
Patient visibly agitated and upset (dementia) this AM - but was calm during hand irrigation.
20Fr 3-way placed by ED removed and exchanged w/ 24Fr 3-way by Urology.
Urine outflow clear after irrigation of small clots.
Objective
-
Vital Signs
Temp Pulse Resp BP Pulse Ox
98.6 F 88 20 95/48 98
07/02/25 07:30 07/02/25 07:30 07/02/25 07:30 07/02/25 07:30 07/02/25 07:30
Intake and Output
07/01/25 07/02/25 07/03/25
06:59 06:59 06:59
Intake Total 1880 / 1880 1907 / 1907 480 / 480
Output Total 3050 / 3050 5200 / 6000 800 / 800
Balance -1170 / -1170 -3293 / -4093 -320 / -320
Intake:
Oral fluids 900 / 900 1657 / 1657 480 / 480
IV fluids (Total) 480 / 480
Blood Product Amount Infused ( 500 / 500 250 / 250
mL)
Packed Rbc Leukoreduced Unit 250 / 250
[id number]
Packed Rbc Leukoreduced Unit 250 / 250
[id number]
Packed Rbc Leukoreduced Unit 250 / 250
[id number]
Output:
True Urine Output from CBI 3050 / 3050 5200 / 6000 800 / 800
Laboratory Results
07/02/25 04:14
07/02/25 04:14
Physical Exam
-
General - well developed, well nourished, no acute distress
Abdomen - soft, non-tender, non-distended
- 24Fr 3-way catheter (newly placed) w/ clear outflow on medium rate CBI
Skin - warm & dry with no rash
Neuro - no motor deficits
Extremities - no clubbing, no cyanosis, no edema
Psych - visibly agitated and incoherent
Care Review
Data Reviewed
Discussed with: Hospitalist and Nursing
CT Scan: Report Pers Reviewed and Image Pers Reviewed
Total Time Spent with Patient (in minutes): 35
[2025-07-02] MEDS: ATIVAN 0.5 MG PO (08:23)
--- NOTE | 2025-07-02 12:40 | W.PN.UPDATE ---
Addendum entered and electronically signed by Gregorio Yates MD 07/02/25 16:29:
ASA resumed 07/01 by Cardiology - despite Urology recommendations to hold given hemorrhagic cystitis.
ASA d/c'd mid-day.
Will continue CBI o/n - no clots after irrigation
Tranexamic acid 1000 mg x1 given this afternoon
PRBC transfusion per Hospitalist
NPO@MN
To OR tomorrow late AM for cysto/clot evacuation/fulguration
D/w spouse.
D/w Hospitalist.
Original Note:
Update Note
Progress Note Update
Urine outflow checked mid-day - faintly pink on medium to high rate CBI.
24Fr 3-way catheter exchanged by Urology this AM (previously 20Fr 3-way for unclear reasons).
Aspirin and Plavix hold recommended by Urology since admission over weekend.
However, patient's RN notified me that aspirin 81 mg was RE-ORDERED yesterday by primary team and given 07/01 and 07/02 as per instructions.
Plan:
- DEFINITELY hold aspirin 81 mg (d/c'd by Urology)
- Plavix permanently discontinued per Cardiology
- Continue CBI today and wean as tolerated
- NPO@MN in case OR intervention indicated tomorrow
D/w RN.
D/w Hospitalist.
[2025-07-02] MEDS: TRANEXAMIC ACID 100 IV (13:03)
[2025-07-02] MEDS: MIRALAX 17 GRAMS PO (13:45)
[2025-07-02] MEDS: VALIUM INJECTION 2 MG IV (13:54)
--- NOTE | 2025-07-02 14:48 | CM ---
CM following re: discharge planning.
Reviewed pt's chart, met with pt and left a message to pt's spouse Rosibel. .
Pt used to live with spouse 2SH and spouse made many efforts to place her in a preferred memory care facilities in [facility]. Pt was placed to [facility] for a short term rehab and transitioning to memory care unit. Pt's spouse
submitted all requested financial information to [facility] and pt was approved.
CM spoke to [facility] artistic director and she confirmed that pt will be accepted back if pt's spouse chooses [facility] again.
D/C plan: probably return back to [facility] with transitioning to their memory care unit.
CM will follow with discharge plan updates as hospitalization progresses
[2025-07-02] MEDS: STERILE WATER FOR INJECTION 10 ML IV (17:22)
[2025-07-02] MEDS: ROCEPHIN 1000 MG IV (17:22)
[2025-07-02] MEDS: SENOKOT-S 1 TABLET PO (20:43)
[2025-07-02] MEDS: LIPITOR 40 MG PO (20:45)
[2025-07-02] MEDS: DULCOLAX 10 MG RECTAL (21:07)
[2025-07-02] MEDS: SINEMET CR 50/200 (EXTENDED RELEASE) 1 TABLET PO (22:12)
[2025-07-02 23:40] LABS: Hematocrit 24.1 % (39.0-52.0); Hemoglobin 8.3 g/dL (13.0-18.0)
[2025-07-03] VITALS (17 sets, daily range): BP systolic 102–149; BP diastolic 38–67; BMI 24.2
[2025-07-03] MEDS: SINEMET 25-100 1 TABLET PO ×4 (02:54→21:20)
[2025-07-03 04:59] LABS: Hematocrit 23.5 % (39.0-52.0); Hemoglobin 8.0 g/dL (13.0-18.0); Mean Corp Hgb Conc. 34.0 g/dL (33.0-37.0); Mean Corpuscular Volume 91.4 fL (80.0-94.0); Nucleated Red Blood Cells % 0 % (-); Platelet Count 149 10^3/uL (130-400); Red Cell Dist. Width 16.9 % (11.5-14.5)
[2025-07-03 05:29] LABS: Blood Urea Nitrogen 17 mg/dl (9-20); Calcium 8.4 mg/dl (8.4-10.2); Carbon Dioxide 24 mmol/L (22-30); Chloride 107 mmol/L (98-107); Estimated Creatinine Clearance 90 ml/min; Glucose 99 mg/dl (70-99); Potassium 4.1 mmol/L (3.5-5.1); Sodium 132 mmol/L (135-145); eGFR > 60.00
--- NOTE | 2025-07-03 05:55 | W.PN.UPDATE ---
Update Note
Progress Note Update
hgb 8.0, + hematuria, been receiving blood transfusion above 8.0. stable VS, Blood consent in chart, will order type and screen, 1 u of PRBC's. asymptomatic, NPO for OR today.
--- NOTE | 2025-07-03 06:29 | PTCARENOTE ---
CBI - open all night. only irrigated it twice. started off bloody w/ clots, but now light pink. hgb=8.0 notify. SHANE Breen - 1 unit ordered. started transfusion.
chg bath completed
--- NOTE | 2025-07-03 07:07 | W.PN.HOSP.TC ---
Today's Communication/Plan
-
- npo with OR today with urology
- received 2 units pRBCs with a decrease in hgb
- continue ceftriaxone
Assessment / Plan
Assessment / Plan
Hematuria
Acute blood loss anemia
- recurrence, per urology, likely explanation is acute urinary retention causing bladder expansion, and then rapid decompression led to bloody urine output, especially in setting of dual antiplatelet therapy
- Hgb at 8.0 after receiving a unit yesterday from 8.4
- received another unit this am, likely ongoing bleeding.
- CBI ongoing
- ASA 81mg discontinued; revisit the aspirin to potentially restart within 2-3 days given that patient had a CAD ANGELICA procedure ~10 months ago.
- IVFs
- Urology following - plan for OR today
- cardiology following
- monitor CBC
- upon discharge, will need linn catether in place
Agitation - resolved
- calm this morning
- received 0.5mg ativan 1 day ago
- if continues to agitated, consider increasing quetiapine
Asymptomatic bacteruria
- urine culture grew e. coli
- although no symptoms, he is undergoing a cystoscopy procedure today
- ceftriaxone 1000mg q24 was started yesterday
Bladder spasms
- received 1x dose of oxybutynin 5mg 2 days ago
Parkinson's with resulting dementia
S/P unilateral brain stim implanted for the right side which said was very efficacious.
- Continue Sinemet/Entacapone
- rasagiline 1mg PO daily
- on Seroquel to 25 mg HS and PRN
CAD
- continue aspirin 81mg
- continue statin
HLD:
- Continue statin
Disposition:
- Came from [employer]
- touch base with case management and PT/OT
Anticipated Discharge: > 48 hours
Subjective/Interval History
-
Date of Service: July 03, 2025
1 unit prbc yesterday, repeat H&H was 8.3 from 8.4
received another unit this morning when 4am hgb 8.0
completed around 9:45am
Objective Data
-
Labs:
Laboratory Results
07/02/25 07/03/25
23:30 04:52
WBC 7.5
Hgb 8.3 L 8.0 L
Hct 24.1 L 23.5 L
Plt Count 149
Sodium 132 L
Potassium 4.1
Chloride 107
Carbon Dioxide 24
BUN 17
Creatinine 0.5 L
Glucose 99
Calcium 8.4
Microbiology
Urine Culture Final 07/02/25-901
CC: 60,000 CFU/ML Escherichia coli
Organism 1 Escherichia coli
1. Escherichia coli
M.I.C. RX
--------- ---
Amoxicillin/Potas. Clavulanate <=8/4 S
Ampicillin <=8 S
Ampicillin/Sulbactam <=4/2 S
Aztreonam <=4 S
Cefazolin <=2 S
Ertapenem <=0.5 S
Ciprofloxacin <=0.25 S
Gentamicin <=2 S
Meropenem <=1 S
Nitrofurantoin-Urine Only <=32 S
Piperacillin/Tazobactam <=8 S
Tetracycline <=4 S
Tobramycin <=2 S
Trimethoprim/Sulfamethoxazole <=2/38 S
Vital Signs:
Vital Signs
Temp Pulse Resp BP Pulse Ox
97.6 F 65 18 121/48 100
07/03/25 06:40 07/03/25 06:40 07/03/25 06:40 07/03/25 06:40 07/03/25 06:40
I&O
07/02/25 07/03/25 07/04/25
06:59 06:59 06:59
Intake Total 1907 / 1907 1090 / 1090
Output Total 5200 / 6000 1500 / 1500
Balance -3293 / -4093 -410 / -410
Review of Systems
-
History Source: Patient
Constitutional: Reports No Symptoms
EENT: Reports No Symptoms Reported
Respiratory: Reports No Symptoms
Cardiac: Reports No Symptoms
Abdomen/GI: Reports No Symptoms
Genitourinary: Reports No Symptoms
Physical Exam
-
General: No Apparent Distress
HEENT: Normocephalic
Respiratory: Clear to Auscultation
Cardiac: Regular Rhythm
GI: Soft and Nontender
Genito-urinary: Continuous Bladder Irrigation
Musculoskeletal: No Edema
Neuro: Awake, Alert and Other
Psych: Calm
[2025-07-03] MEDS: COMTAN 200 MG PO ×2 (08:19→22:23)
[2025-07-03] MEDS: RASAGILINE MESYLATE 1 MG PO (08:19)
--- NOTE | 2025-07-03 10:14 | W.SUR.PREOP ---
Pre-Operative Surgical Note
-
I have examined this patient prior to the performance of the scheduled procedure.
The patient's condition is unchanged from the time of the current History and
Physical and the patient is able to undergo the scheduled procedure.
ASA d/c'd 07/02
Plavix held since admission this weekend.
CBI continues w/ pink to light punch urine.
Required several PRBC tranfusion in week for acute blood loss anemia.
- Maintain NPO
- To OR today for cystoscopy, clot evacuation, fulguration of bladder
- Surgical consent will be obtained in preop holding from spouse (WILTON Davalos)
- Continue IV Ceftriaxone
D/w spouse via telephone (will provide verbal consent as POA)
D/w Hospitalist.
[2025-07-03] MEDS: SINEMET 25-100 PO ×3 (12:00→21:19)
--- NOTE | 2025-07-03 12:51 | W.IMMPOSTOP ---
Surgical Immed Post Op Note
-
Primary Surgeon: Milan
Pre-op Diagnosis:
1. Hematuria w/ clot urinary retention
2. 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
3. Acute blood loss anemia
Post-op Diagnosis: Same
Procedure Performed: cystoscopy, clot evacuation, transurethral vaporization of bladder urothelium (extensive)
Anesthesia Type: LMA
Specimen / Cultures: None/None
Estimated Blood Loss: 2 cc (200 cc old clot evacuated)
Drains: 22Fr 3-way catheter (20 cc in balloon)
Complications: None
Operative Findings:
1. Extensive petechiae of bladder urothelium primarily posterior bladder wall, base, and trigone - fulgurated w/ button vaporization.
2. 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
3. No evidence of bladder tumors.
4. Excellent hemostasis in no flow, low pressure state on final cystoscopy.
D/w spouse (Susannah).
[2025-07-03] MEDS: DILAUDID 0.25 MG IV ×2 (13:25→13:41)
--- NOTE | 2025-07-03 13:27 | CM ---
CM following re: discharge planning.
Reviewed pt's chart, met with pt and spoke to pt's spouse Rosibel.
per chart review, OR today for cystoscopy, clot evacuation, transurethral vaporization of bladder urothelium (extensive), continue supportive care.
Pt used to live with spouse 2SH and spouse made many efforts to place her in a preferred memory care facilities in [facility]. Pt was placed to [facility] for a short term rehab and transitioning to memory care unit. Pt's spouse
submitted all requested financial information to [facility] and pt was approved.
CM spoke to [facility] director educational radio and she confirmed that pt will be accepted back if pt's spouse chooses [facility] again.
Pt's spouse requested pt returns back to [facility] when medically stable. A referral to [facility] made.
D/C plan: return back to [facility] with transitioning to their memory care unit.
CM will follow with discharge plan updates as hospitalization progresses
--- NOTE | 2025-07-03 14:43 | W.PN.UPDATE ---
Update Note
Progress Note Update
Post-op plan:
- Continue CBI to keep urine CLEAR WITHOUT CLOTS - OK to wean as tolerated
- Hold aspirin tentatively post-op
- Regular diet
- Continue IV Ceftriaxone for E. Coli cUTI
D/w spouse (Susannah, ADALIA).
D/w Hospitalist.
--- NOTE | 2025-07-03 14:45 | PTCARENOTE ---
Received patient from PACU at 1445. Patient drowsy, arousable to verbal stimuli. Patient has no c/o pain, tolerating sips of clears. Lunch ordered. Call molina in reach. Hernández draing clear yellow urine, CBI infusing.
--- NOTE | 2025-07-03 15:12 | PN.CDI ---
CDI
- -
CDI:
Physician Documentation Request
Admit Date: 06/29/25 23:30
Dear Doctor Sachin,
Clinical Indicators:
Patient admitted with gross hematuria with blood clots and urine retention with CBI.
06/30: NSS IVF
Sodium trend:
07/01/25 07/03/25
04:52
Sodium 133 L 132 L
Based on the above, could you clarify in the progress notes, the appropriate diagnosis, if significant, that supports the above abnormalities and additional evaluation, monitoring and/or treatment rendered:
Hyponatremia
Abnormal lab value, clinically insignificant
Other
Use of terms such as suspected, likely, concern for, or probable (associated with a specific diagnosis that is being evaluated, monitored, or treated as if it exists) are acceptable and can be coded in the inpatient setting, when documented at the
time of discharge.
Thank you,
DANIEL Guerra RN
CDI Specialist
available via tiger text
Please use your independent medical judgment in providing your response.
[2025-07-03] MEDS: STERILE WATER FOR INJECTION 10 ML IV (17:01)
[2025-07-03] MEDS: ROCEPHIN 1000 MG IV (17:01)
[2025-07-03] MEDS: SEROQUEL 25 MG PO (21:20)
[2025-07-03] MEDS: LIPITOR 40 MG PO (21:20)
[2025-07-03] MEDS: COMTAN PO (21:20)
[2025-07-03] MEDS: TYLENOL 650 MG PO (21:22)
[2025-07-03] MEDS: SENOKOT-S 1 TABLET PO (21:33)
[2025-07-03] MEDS: SINEMET CR 50/200 (EXTENDED RELEASE) 1 TABLET PO (22:22)
[2025-07-04] VITALS (7 sets, daily range): BP systolic 92–123; BP diastolic 46–57; PULSE 75–77; O2SAT 98; BMI 23.6
[2025-07-04] MEDS: SINEMET 25-100 1 TABLET PO ×9 (00:30→23:49)
[2025-07-04 06:50] LABS: Hematocrit 28.3 % (39.0-52.0); Hemoglobin 9.4 g/dL (13.0-18.0); Mean Corp Hgb Conc. 33.2 g/dL (33.0-37.0); Mean Corpuscular Volume 91.9 fL (80.0-94.0); Nucleated Red Blood Cells % 0 % (-); Platelet Count 188 10^3/uL (130-400); Red Cell Dist. Width 16.9 % (11.5-14.5)
[2025-07-04 06:59] LABS: Blood Urea Nitrogen 16 mg/dl (9-20); Calcium 8.8 mg/dl (8.4-10.2); Carbon Dioxide 27 mmol/L (22-30); Chloride 106 mmol/L (98-107); Estimated Creatinine Clearance 90 ml/min; Glucose 96 mg/dl (70-99); Potassium 4.5 mmol/L (3.5-5.1); Sodium 134 mmol/L (135-145); eGFR > 60.00
--- NOTE | 2025-07-04 07:06 | PTCARENOTE ---
pt drows. cbi - bloody, pt c/o abdominal pain. irrigated pt --removed several clots and placed CBI - running wide open. throughout the night was able to decrease rate and urine color now yellow.
--- NOTE | 2025-07-04 07:09 | W.PN.HOSP.TC ---
Today's Communication/Plan
-
- consider narrowing abx today
- f/u urology recs
- f/u CM and PT/OT
Assessment / Plan
Assessment / Plan
Hematuria s/p cystoscopy 07/03
Acute blood loss anemia
- recurrence, per urology, likely explanation is acute urinary retention causing bladder expansion, and then rapid decompression led to bloody urine output, especially in setting of dual antiplatelet therapy
- Hgb now 9.4
- underwent cystoscopy on 07/03
- CBI discontinued
- ASA currently held, tbd when to resume pending urine output appearance
- Urology following
- upon discharge, will need linn catheter in place
Asymptomatic bacteruria
- urine culture grew e. coli
- although no symptoms, he is undergoing a cystoscopy procedure today
- ceftriaxone 1000mg q24 was started yesterday
- consider today switching to cefazolin 500mg q12h
Hyponatremia
- Na+ now 134
- appears to be improving
- monitor BMP
Bladder spasms
- received 1x dose of oxybutynin 5mg 2 days ago
Parkinson's with resulting dementia
S/P unilateral brain stim implanted for the right side which said was very efficacious.
- Continue Sinemet/Entacapone
- rasagiline 1mg PO daily
- on Seroquel to 25 mg HS and PRN
Agitation - resolved
- calm this morning
- if continues to agitated, consider increasing quetiapine
CAD
- holding aspirin 81mg
- continue statin
HLD:
- Continue statin
Disposition:
- Came from [facility]
- touch base with case management and PT/OT
- PT/OT reordered per note requesting new order
Anticipated Discharge: 24 - 48 hours
Subjective/Interval History
-
Date of Service: July 04, 2025
calm, feels well this morning
CBI discontinued per urology
had cystoscopy, clot evacuation, extensive fulguration of bladder on 07/03
he denies any pain, suprapubic or penile pain
Objective Data
-
Labs:
Laboratory Results
07/04/25
06:19
WBC 7.9
Hgb 9.4 L
Hct 28.3 L
Plt Count 188 D
Sodium 134 L
Potassium 4.5
Chloride 106
Carbon Dioxide 27
BUN 16
Creatinine 0.5 L
Glucose 96
Calcium 8.8
Hgb 9.4
WBC 7.9
Vital Signs:
Vital Signs
Temp Pulse Resp BP Pulse Ox
98.7 F 84 16 123/57 94
07/04/25 03:00 07/04/25 03:00 07/04/25 03:00 07/04/25 03:00 07/03/25 23:00
afebrile
I&O
07/03/25 07/04/25 07/05/25
06:59 06:59 06:59
Intake Total 1090 / 1090 600 / 600
Output Total 1500 / 1500 950 / 950
Balance -410 / -410 -350 / -350
Review of Systems
-
History Source: Patient
Constitutional: Reports No Symptoms
EENT: Reports No Symptoms Reported
Respiratory: Reports No Symptoms
Cardiac: Reports No Symptoms
Abdomen/GI: Reports No Symptoms
Genitourinary: Reports No Symptoms
Physical Exam
-
General: No Apparent Distress
HEENT: Normocephalic
Respiratory: Clear to Auscultation
Cardiac: Regular Rhythm
GI: Soft and Nontender
Genito-urinary: Other (linn catheter; clear yellow output)
Musculoskeletal: No Edema
Neuro: Awake and Alert
Psych: Calm
--- NOTE | 2025-07-04 07:22 | W.PN.URO.CBU ---
Today's Communication / Plan
-
Discontinue CBI
Hold aspirin today - consider restarting tomorrow pending urine appearance
Continue IV antibiotics for E. Coli UTI - transition to PO course on discharge
Discharge w/ Hernández catheter to drainage
Assessment / Plan
-
Recurrent urinary retention
Rapid decompression hematuria w/ clot retention
E. Coli cUTI
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
Discharged 06/21 w/ successful voiding trial and no hematuria.
Readmitted w/ recurrent hematuria and clot urinary retention.
CT imaging (06/08) => clots in dependent bladder w/o visible mass or tumor noted.
Plavix held starting 06/30 - d/c'd permanently per Cardiology.
07/02: H/H stable, 3-way catheter upsized from ED placement (now 24Fr) - hand-irrigated this AM w/ clear outflow and only small clots.
07/03: s/p cystoscopy, clot evacuation, extensive fulguration of bladder => excellent hemostasis noted, NO bladder tumors.
Diagnosis
-
Date of Service: July 04, 2025
-
Patient Diagnosis:
Recurrent urinary retention
Rapid decompression hematuria w/ clot retention
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
Subjective
-
Urine clear yellow this AM off CBI.
Denies abdominal/suprapubic discomfort.
Tolerating diet.
Mental status back to baseline (no agitation/confusion).
Objective
-
Vital Signs
Temp Pulse Resp BP Pulse Ox
98.7 F 84 16 123/57 94
07/04/25 03:00 07/04/25 03:00 07/04/25 03:00 07/04/25 03:00 07/03/25 23:00
Intake and Output
0807/04/25 07/05/25
06:59 06:59 06:59
Intake Total 1090 / 1090 600 / 600
Output Total 1500 / 1500 950 / 950 1600 / 1600
Balance -410 / -410 -350 / -350 -1600 / -1600
Intake:
Oral fluids 480 / 480
IV fluids (Total) 100 / 100
normasol 100 / 100
IV piggybacks 110 / 110
Blood products 250 / 250 250 / 250
Blood Product Amount Infused ( 250 / 250 250 / 250
mL)
Packed Rbc Leukoreduced Unit 250 / 250
[id number]
Packed Rbc Leukoreduced Unit 0 / 0 250 / 250
[id number]
Output:
True Urine Output from CBI 1500 / 1500 950 / 950 1600 / 1600
Laboratory Results
07/04/25 06:19
07/04/25 06:19
Physical Exam
-
General - well developed, well nourished, no acute distress
Abdomen - soft, non-tender, non-distended
- 3-way catheter w/ clear yellow UOP off CBI
Skin - warm & dry with no rash
Extremities - no clubbing, no cyanosis, no edema
Care Review
Data Reviewed
Discussed with: Hospitalist and Nursing
Total Time Spent with Patient (in minutes): 20
[2025-07-04] MEDS: RASAGILINE MESYLATE 1 MG PO (08:37)
[2025-07-04] MEDS: COMTAN 200 MG PO ×3 (08:37→21:52)
[2025-07-04] MEDS: MIRALAX 17 GRAMS PO (08:40)
[2025-07-04] MEDS: SENOKOT-S 1 TABLET PO (08:40)
[2025-07-04] MEDS: ATIVAN 0.5 MG PO (10:39)
[2025-07-04] MEDS: SEROQUEL 25 MG PO ×2 (12:39→21:51)
--- NOTE | 2025-07-04 13:24 | CM ---
Addendum entered by Jamarcus Tomas 07/04/25 16:14:
IMM reviewed, placed on chart, pt has a copy.
Addendum entered by Jamarcus Tomas 07/04/25 13:54:
Per MD pt will be ready for discharge on Monday or Monday and MD requested to secure pt's admission to [facility] for this weekend.
CM spoke to [facility] director field services and she confirmed that pt is accepted for admission either Monday or Monday. Per director field services, pt will go to the same room on the second floor.
[facility] nursing report: [phone]
Discharge instructions fax: [phone]
D/C plan: [facility] on Monday or Monday.
CM will follow to assist pt with discharge to [facility].
Original Note:
CM following re: discharge planning.
Reviewed pt's chart, met with pt and spoke to pt's spouse Rosibel.
Pt used to live with spouse 2SH and spouse made many efforts to place her in a preferred memory care facilities in [facility]. Pt was placed to [facility] for a short term rehab and transitioning to memory care unit. Pt's spouse
submitted all requested financial information to [facility] and pt was approved.
CM spoke to [facility] director field services and she confirmed that pt will be accepted back if pt's spouse chooses [facility] again.
Pt's spouse requested pt returns back to [facility] when medically stable. A referral to [facility] made.
D/C plan: return back to [facility] with transitioning to their memory care unit.
CM will follow with discharge plan updates as hospitalization progresses
[2025-07-04] MEDS: ANCEF 10 IV ×2 (15:18→21:52)
[2025-07-04] MEDS: LIPITOR 40 MG PO (21:51)
[2025-07-04] MEDS: SINEMET CR 50/200 (EXTENDED RELEASE) 1 TABLET PO (21:52)
[2025-07-05] MEDS: SINEMET 25-100 1 TABLET PO ×5 (02:50→15:07)
[2025-07-05 05:29] VITALS: BMI 24.2
[2025-07-05] MEDS: ANCEF 10 IV ×2 (06:00→13:46)
[2025-07-05 06:05] LABS: Hematocrit 26.2 % (39.0-52.0); Hemoglobin 8.7 g/dL (13.0-18.0); Mean Corp Hgb Conc. 33.2 g/dL (33.0-37.0); Mean Corpuscular Volume 92.6 fL (80.0-94.0); Nucleated Red Blood Cells % 0 % (-); Platelet Count 182 10^3/uL (130-400); Red Cell Dist. Width 17.1 % (11.5-14.5)
[2025-07-05 06:32] LABS: Blood Urea Nitrogen 23 mg/dl (9-20); Calcium 8.1 mg/dl (8.4-10.2); Carbon Dioxide 28 mmol/L (22-30); Chloride 104 mmol/L (98-107); Estimated Creatinine Clearance 90 ml/min; Glucose 109 mg/dl (70-99); Potassium 4.0 mmol/L (3.5-5.1); Sodium 133 mmol/L (135-145); eGFR > 60.00
--- NOTE | 2025-07-05 07:13 | W.PN.HOSP.TC ---
Today's Communication/Plan
-
- will be discharged on catheter
- ASA to resume tomorrow
- family visiting today from [facility]
- dispo to [facility] first and then to memory care
- continue cefazolin
- possible discharge today/tomorrow
Assessment / Plan
Assessment / Plan
Hematuria s/p cystoscopy 07/03
Acute blood loss anemia
- recurrence, per urology, likely explanation is acute urinary retention causing bladder expansion, and then rapid decompression led to bloody urine output, especially in setting of dual antiplatelet therapy
- Hgb 8.7 from 9.4
- CBI discontinued, now with linn
- ASA currently held, tbd when to resume pending urine output appearance
- Urology following
- upon discharge, will need linn catheter in place
Asymptomatic bacteruria
- urine culture grew e. coli
- although no symptoms, he is underwent a cystoscopy procedure on 07/03
- ceftriaxone to cefazolin 500mg q12h yesterday (Day #2 cefazolin) for 14 day course
Hyponatremia
- Na+ now 133
- appears to be stable
- monitor BMP
Bladder spasms
- received 1x dose of oxybutynin 5mg on 06/30 and 07/01
Parkinson's with resulting dementia
S/P unilateral brain stim implanted for the right side which said was very efficacious.
- Continue Sinemet/Entacapone
- rasagiline 1mg PO daily
- on Seroquel to 25 mg HS and PRN
Agitation
- calm this morning
- if continues to agitated, consider increasing quetiapine
CAD
- holding aspirin 81mg, per urology okay to restart 07/06
- continue statin
HLD:
- Continue statin
Disposition:
- Came from [facility]; but dispo plan per appears to be to memory care
- touch base with case management and PT/OT
Anticipated Discharge: Within 24 hours
Subjective/Interval History
-
Date of Service: July 05, 2025
feels good this am,
serosanguinous output in linn catheter
patient requests speak to about disposition planning
Objective Data
-
Labs:
Laboratory Results
07/05/25
05:38
WBC 6.6
Hgb 8.7 L
Hct 26.2 L
Plt Count 182
Sodium 133 L
Potassium 4.0
Chloride 104
Carbon Dioxide 28
BUN 23 H
Creatinine 0.5 L
Glucose 109 H
Calcium 8.1 L
Hgb 8.7 from 9.4
Vital Signs:
Vital Signs
Temp Pulse Resp BP Pulse Ox
98.2 F 77 18 105/55 98
07/04/25 23:04 07/04/25 23:04 07/04/25 23:04 07/04/25 23:04 07/04/25 23:04
I&O
07/04/25 07/05/25 07/06/25
06:59 06:59 06:59
Intake Total 600 / 600 1200 / 1200
Output Total 950 / 950 2600 / 2600
Balance -350 / -350 -1400 / -1400
Review of Systems
-
History Source: Patient
Constitutional: Reports No Symptoms
EENT: Reports No Symptoms Reported
Respiratory: Reports No Symptoms
Cardiac: Reports No Symptoms
Abdomen/GI: Reports No Symptoms
Genitourinary: Reports No Symptoms
Physical Exam
-
General: No Apparent Distress
HEENT: Normocephalic
Respiratory: Clear to Auscultation
Cardiac: Regular Rhythm
GI: Soft and Nontender
Genito-urinary: Other (linn catheter; serosanguinous output)
Musculoskeletal: No Edema
Neuro: Awake and Alert
Psych: Calm
[2025-07-05 07:20] VITALS: BP 95/44
--- NOTE | 2025-07-05 07:33 | W.PN.URO.CBU ---
Today's Communication / Plan
-
continue linn
add flomax
continue antibx
asa restart ok for tomorrow
Assessment / Plan
-
Recurrent urinary retention
Rapid decompression hematuria w/ clot retention
E. Coli cUTI
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
Discharged 06/21 w/ successful voiding trial and no hematuria.
Readmitted w/ recurrent hematuria and clot urinary retention.
CT imaging (06/08) => clots in dependent bladder w/o visible mass or tumor noted.
Plavix held starting 06/30 - d/c'd permanently per Cardiology.
07/02: H/H stable, 3-way catheter upsized from ED placement (now 24Fr) - hand-irrigated this AM w/ clear outflow and only small clots.
07/03: s/p cystoscopy, clot evacuation, extensive fulguration of bladder => excellent hemostasis noted, NO bladder tumors.
PT STABLE POST OP WITH NO HEMATURIA
CONTINUING ANTIBX FOR ECOLI UTI
ADD FLOMAX DUE TO HX OF RETENTION
WOULD HOLD ASA TODAY- RESTART TOMORROW IF URINE CLEAR
PLAN WHEN MEDICALLY STABLE TO D/C WITH [facility] (VN CONSULT ORDERED) AND FLOMAX AND OUTPT F/U WITH DR SUAREZ FOR VOIDING TRIAL
Diagnosis
-
Date of Service: July 05, 2025
-
Patient Diagnosis:
Recurrent urinary retention
Rapid decompression hematuria w/ clot retention
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
s/p cysto/clot evac and fulguration
Subjective
-
pt without complaint
urine clear
Objective
-
Vital Signs
Temp Pulse Resp BP Pulse Ox
98.2 F 77 18 105/55 98
07/04/25 23:04 07/04/25 23:04 07/04/25 23:04 07/04/25 23:04 07/04/25 23:04
Intake and Output
07/04/25 07/05/25 07/06/25
06:59 06:59 06:59
Intake Total 600 / 600 1200 / 1200
Output Total 950 / 950 2600 / 2600
Balance -350 / -350 -1400 / -1400
Intake:
Oral fluids 1200 / 1200
IV fluids (Total) 100 / 100
normasol 100 / 100
Blood products 250 / 250
Blood Product Amount Infused ( 250 / 250
mL)
Packed Rbc Leukoreduced Unit 250 / 250
[id number]
Output:
Urine, Linn 1000 / 1000
True Urine Output from CBI 950 / 950 1600 / 1600
Laboratory Results
07/05/25 05:38
07/05/25 05:38
Review of Systems
-
Constitutional: No Symptoms
Respiratory: No Symptoms
Cardiac: No Symptoms
Abdomen/GI: No Symptoms
Physical Exam
-
General - no acute distress
Abdomen - soft, non-tender
Genitalia - linn in place- urine yellow
[2025-07-05] MEDS: COMTAN 200 MG PO ×2 (08:25→15:07)
[2025-07-05] MEDS: FLOMAX 0.4 MG PO (08:25)
[2025-07-05] MEDS: RASAGILINE MESYLATE 1 MG PO (08:25)
--- NOTE | 2025-07-05 09:05 | CM ---
Reviewed the chart notes. Patient discharging to SNF. CM consult for VN not needed due to placement.
Plan: Discharge to [facility] nursing report: [phone]
Discharge instructions fax: [phone]
[2025-07-05] MEDS: MIRALAX 17 GRAMS PO (10:29)
[2025-07-05] MEDS: SENOKOT-S 1 TABLET PO (10:29)
[2025-07-05 12:48] VITALS: BP 137/57
[2025-07-05] MEDS: SEROQUEL 25 MG PO (13:45)
--- NOTE | 2025-07-05 13:46 | W.DCSUMMARY ---
Documented by User: Kyrie Stephenson MD, Resident 07/05/25 14:05
Discharge Summary
Discharge Data
Date of Admission: 06/29/25
Date of Discharge: 07/05/25
-
Pending Results: No
Hospital Course
Discharging Physician : Ray Baker, Kyrie Stephenson
Disposition : [facility]
Primary care physician : Fani Duff
Principal Discharge diagnosis : Hematuria, Acute urinary retention
Chronic Discharge diagnosis : Parkinson's disease with DBS, HLD, radiation cystitis, prostate cancer, dementia with agitation
Hospital Course :
85 yo M presenting with hematuria with clots and was recently hospitalized for a similar issue that required continuous bladder irrigation.
The following problems were addressed during this admission.
#Hematuria with clots
#Acute urinary retention
- A recurrence of hematuria, per urology, likely attributed to acute urinary retention that resulted in bladder expansion followed by rapid decompression causing bloody urine output.
- Has been previously on dual antiplatelet therapy (ASA and clopidogrel)
- however, per cardiology and urology, clopidogrel was discontinued. He has a history of PCI/CAD event ~10 months ago
- This admission, he had recurrent hematuria with clots that required continuous bladder irrigation
- His hemoglobin levels did decrease, and he was transfused with pRBCs, a total of 5 units this admission.
- He did experience bladder spasms, requiring oxybutynin 5mg x2
- Per urology, he was taken for cystoscopy for further intervention and fulguration.
- Per urology, he was advised to hold ASA until 07/06/2025.
- He has been discharged with a linn catheter and has been prescribed tamsulosin, per urology
- He is advised to follow-up with urology in 2-3 weeks.
- He has been advised to follow-up with PCP in 1 week.
#Acute blood loss anemia
- Required 5 units of pRBCs this admission
- His hemoglobin on day of discharge was 8.7
- Patient has been asked to repeat a CBC in 5 days.
# Asymptomatic bacteriuria
- Urine culture grew e. coli
- although he denies symptoms, given the cystoscopic procedure, he was given antibiotics, initially ceftriaxone, then cefazolin.
- He is asked to continue cephalexin 500mg bid for a total of 14 days until 07/16/2025.
# CAD
- PCI ~10 months ago, per cardiology
- ASA 81mg daily to be resumed starting 07/06/2025, per urology
- per urology/cardiology, clopidogrel discontinued
# Chronic issues per below
# Parkinson's disease with resulting dementia
- Continue Sinemet/Entacapone
- rasagiline 1mg PO daily
- on Seroquel to 25 mg HS and PRN
# HLD
- continue atorvastatin 40mg
Procedure findings :
07/03/2025: cystoscopy, clot evacuation, transurethral vaporization of bladder urothelium (extensive)
Operative Findings:
1. Extensive petechiae of bladder urothelium primarily posterior bladder wall, base, and trigone - fulgurated w/ button vaporization.
2. 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
3. No evidence of bladder tumors.
4. Excellent hemostasis in no flow, low pressure state on final cystoscopy.
Discharge Plan
-
Patient Disposition: Custodial/SNF
Discharge Diagnosis/Procedures: Hematuria and acute urinary retention
Condition: Fair
Diet: Regular
Activity: As tolerated
Driving Restrictions: No driving
Bathing Restrictions: None
Blood Work: CBC blood test in 5 days
Other Services: PT and OT
Activity Restrictions/Additional Instructions:
If there is a recurrence of hematuria after resuming aspirin contact urology referral for recommendations on how to proceed. If patient develops severe urinary bleeding with clot production and clogging of his Linn catheter then bring back to
emergency department
Referrals:
Gregorio Yates MD [Active, Urology] - in two to three weeks
Referral Note: Please call Dr. Yates's office to schedule a follow-up visit in 2-3 weeks to discuss a voiding trial vs. diagnostic testing to evaluate bladder function.
Fani Duff, DO [Family Provider, General] - in less than 1 week
Additional Discharge Medication Instructions: Please start tamsulosin 0.4mg by mouth daily
Please take cephalexin antibiotic 500mg every 12 hours until 07/16/2025
Please resume aspirin 81mg on 07/06/2025 as recommended by urologist
Please STOP clopidogrel as recommended by cardiology/urology.
You may continue your other home medications as below.
Please repeat a CBC blood test in 5 days to check your hemoglobin.
You are discharged with the linn catheter in place, and followed up with urology.
You are to follow-up with urology within 2-3 weeks
You are to follow-up with your PCP in 1 week.
Prescriptions:
New
tamsulosin 0.4 mg Capsule
0.4 mg PO DAILY Qty: 30 0RF
cephalexin 500 mg capsule
500 mg PO Q12H Qty: 22 0RF
Continued
quetiapine 25 mg Tablet
25 mg PO HS
atorvastatin 40 mg tablet
40 mg PO HS
zinc acetate 50 mg (zinc) Capsule
50 mg PO DAILY
carbidopa-levodopa 50-200 mg tablet extended release
1 tab PO HS
acetaminophen 500 mg Tablet
500 mg PO BIDPRN PRN (Reason: mild pain)
flaxseed oil 1,000 mg Capsule
1,000 mg PO DAILY
entacapone 200 mg tablet
200 mg PO TID
ascorbic acid (vitamin C) 500 mg Tablet
500 mg PO DAILY
calcium polycarbophil 625 mg Tablet
625 mg PO BID
docusate sodium 100 mg Capsule
100 mg PO DAILY
vitamin B complex Tablet
1 tab PO DAILY
carbidopa-levodopa 25-100 mg Tablet
1 tab PO Q3H
coenzyme Q10 [Co Q-10] 100 mg Capsule
100 mg PO BID
rasagiline 1 mg tablet
1 mg PO DAILY
quetiapine 25 mg Tablet
25 mg PO Q8HPRN PRN (Reason: agitation) Qty: 10 0RF
cetirizine 10 mg Tablet
10 mg PO DAILYPRN PRN (Reason: allergy) Qty: 0 0RF
magnesium hydroxide [Milk of Magnesia] 400 mg/5 mL Suspension
30 ml PO DAILY PRN (Reason: constipation)
Rx Instructions:
give on day 4 of no BM
bisacodyl [Dulcolax (bisacodyl)] 10 mg Suppository
10 mg HI DAILY PRN (Reason: constipation)
Rx Instructions:
if MOM ineffective, give on day 5 of no BM
Fleet Enema Extra 19-7 gram/197 mL Enema
197 ml HI ONCE
Rx Instructions:
if dulcolax ineffective, give on day 6 of no BM
Held
aspirin 81 mg Tablet
81 mg PO DAILY
Hold Instructions: Resume on 07/06/25. Please resume aspirin 81mg on 07/06/2025 once daily
Rx Instructions:
start 06/09/25
Discontinued
clopidogrel 75 mg tablet
75 mg PO DAILY
Rx Instructions:
start 06/09/25
Discharge Orders:
Discharge Patient (As Directed); Ordered 07/05/25
Ordered By: Kyrie Stephenson
Discharge Date and Time
Print Language: PERSIAN

Documented by User: Ray Baker DO 07/05/25 15:50
Discharge Summary
Discharge Data
Date of Admission: 06/29/25
Date of Discharge: 07/05/25
Total time spent discharging patient (in min): 32
Discharge Plan
-
Patient Disposition: Custodial/SNF
Discharge Diagnosis/Procedures: Hematuria and acute urinary retention
Condition: Fair
Diet: Regular
Activity: As tolerated
Driving Restrictions: No driving
Bathing Restrictions: None
Blood Work: CBC blood test in 5 days
Other Services: PT and OT
Activity Restrictions/Additional Instructions:
If there is a recurrence of hematuria after resuming aspirin contact urology referral for recommendations on how to proceed. If patient develops severe urinary bleeding with clot production and clogging of his Linn catheter then bring back to
emergency department
Referrals:
Gregorio Yates MD [Active, Urology] - in two to three weeks
Referral Note: Please call Dr. Yates's office to schedule a follow-up visit in 2-3 weeks to discuss a voiding trial vs. diagnostic testing to evaluate bladder function.
Fani Duff DO [Family Provider, General] - in less than 1 week
Additional Discharge Medication Instructions: Please start tamsulosin 0.4mg by mouth daily
Please take cephalexin antibiotic 500mg every 12 hours until 07/16/2025
Please resume aspirin 81mg on 07/06/2025 as recommended by urologist
Please STOP clopidogrel as recommended by cardiology/urology.
You may continue your other home medications as below.
Please repeat a CBC blood test in 5 days to check your hemoglobin.
You are discharged with the linn catheter in place, and followed up with urology.
You are to follow-up with urology within 2-3 weeks
You are to follow-up with your PCP in 1 week.
Prescriptions:
New
tamsulosin 0.4 mg Capsule
0.4 mg PO DAILY Qty: 30 0RF
cephalexin 500 mg capsule
500 mg PO Q12H Qty: 22 0RF
Continued
quetiapine 25 mg Tablet
25 mg PO HS
atorvastatin 40 mg tablet
40 mg PO HS
zinc acetate 50 mg (zinc) Capsule
50 mg PO DAILY
carbidopa-levodopa 50-200 mg tablet extended release
1 tab PO HS
acetaminophen 500 mg Tablet
500 mg PO BIDPRN PRN (Reason: mild pain)
flaxseed oil 1,000 mg Capsule
1,000 mg PO DAILY
entacapone 200 mg tablet
200 mg PO TID
ascorbic acid (vitamin C) 500 mg Tablet
500 mg PO DAILY
calcium polycarbophil 625 mg Tablet
625 mg PO BID
docusate sodium 100 mg Capsule
100 mg PO DAILY
vitamin B complex Tablet
1 tab PO DAILY
carbidopa-levodopa 25-100 mg Tablet
1 tab PO Q3H
coenzyme Q10 [Co Q-10] 100 mg Capsule
100 mg PO BID
rasagiline 1 mg tablet
1 mg PO DAILY
quetiapine 25 mg Tablet
25 mg PO Q8HPRN PRN (Reason: agitation) Qty: 10 0RF
cetirizine 10 mg Tablet
10 mg PO DAILYPRN PRN (Reason: allergy) Qty: 0 0RF
magnesium hydroxide [Milk of Magnesia] 400 mg/5 mL Suspension
30 ml PO DAILY PRN (Reason: constipation)
Rx Instructions:
give on day 4 of no BM
bisacodyl [Dulcolax (bisacodyl)] 10 mg Suppository
10 mg HI DAILY PRN (Reason: constipation)
Rx Instructions:
if MOM ineffective, give on day 5 of no BM
Fleet Enema Extra 19-7 gram/197 mL Enema
197 ml HI ONCE
Rx Instructions:
if dulcolax ineffective, give on day 6 of no BM
Held
aspirin 81 mg Tablet
81 mg PO DAILY
Hold Instructions: Resume on 07/06/25. Please resume aspirin 81mg on 07/06/2025 once daily
Rx Instructions:
start 06/09/25
Discontinued
clopidogrel 75 mg tablet
75 mg PO DAILY
Rx Instructions:
start 06/09/25
Discharge Orders:
Discharge Patient (As Directed); Ordered 07/05/25
Ordered By: Kyrie Stephenson
Discharge Date and Time
Print Language: PERSIAN
== END 2025-07-05 16:38 | DRG 669 ==
LOC: 2 SOUTH 23:30
PROVIDERS: ADMITTING PHYSICIAN Internal Medicine; ATTENDING PHYSICIAN Internal Medicine; CONSULT PHYSICIAN Internal Medicine Cardiovascular Disease; CONSULT PHYSICIAN Surgery; EMERGENCY PHYSICIAN Emergency Medicine; FAMILY PHYSICIAN Family Medicine
PROC: 0TCB8ZZ Extirpation of Matter from Bladder, Via Natural or Artificial Opening Endoscopic (ICD-10-PCS; 2025-06-29)
PROC: 0T5B8ZZ Destruction of Bladder, Via Natural or Artificial Opening Endoscopic (ICD-10-PCS; 2025-06-29)
PROC: 30233N1 Transfusion of Nonautologous Red Blood Cells into Peripheral Vein, Percutaneous Approach (ICD-10-PCS; 2025-06-30)
DX: N30.41 Irradiation cystitis with hematuria (principal); D62 Acute posthemorrhagic anemia; E87.1 Hypo-osmolality and hyponatremia; F05 Delirium due to known physiological condition; D68.32 Hemorrhagic disorder due to extrinsic circulating anticoagulants; F02.811 Dementia in other diseases classified elsewhere, unspecified severity, with agitation; N39.0 Urinary tract infection, site not specified; C61 Malignant neoplasm of prostate; R33.8 Other retention of urine; G20.A1 Parkinson's disease without dyskinesia, without mention of fluctuations; E78.5 Hyperlipidemia, unspecified; I25.10 Atherosclerotic heart disease of native coronary artery without angina pectoris; N32.89 Other specified disorders of bladder; Y84.2 Radiological procedure and radiotherapy as the cause of abnormal reaction of the patient, or of later complication, without mention of misadventure at the time of the procedure; K59.00 Constipation, unspecified; B96.29 Other Escherichia coli [E. coli] as the cause of diseases classified elsewhere; Z79.02 Long term (current) use of antithrombotics/antiplatelets; Z79.82 Long term (current) use of aspirin; Z79.899 Other long term (current) drug therapy
CPT/HCPCS: 80048; 80053; 81003; 81015; 85014; 85018; 85025; 85027; 85610; 85730; 86850; 86900; 86901; 86920; 87070; 87077; 87086; 87186; 93005; 97163; 97164; 97167; 97168; 99285; P9016

== ENCOUNTER → 2025-07-08 09:28 | Outpatient (REF) | payer MEDICARE, OTHER, SELFPAY ==
[2025-07-08 10:59] LABS: Blood Urea Nitrogen 20 mg/dl (9-20); Calcium 8.6 mg/dl (8.4-10.2); Carbon Dioxide 29 mmol/L (22-30); Chloride 104 mmol/L (98-107); Glucose 115 mg/dl (70-99); Potassium 4.3 mmol/L (3.5-5.1); Sodium 135 mmol/L (135-145); eGFR > 60.00
[2025-07-08 11:18] LABS: Hematocrit 31.8 % (39.0-52.0); Hemoglobin 10.0 g/dL (13.0-18.0); Mean Corp Hgb Conc. 31.4 g/dL (33.0-37.0); Mean Corpuscular Volume 97.0 fL (80.0-94.0); Nucleated Red Blood Cells % 0 % (-); Platelet Count 247 10^3/uL (130-400); Red Cell Dist. Width 16.4 % (11.5-14.5)
== END ==
LOC: OLABP 09:28
PROVIDERS: ATTENDING PHYSICIAN Family Medicine
DX: R52 Pain, unspecified (principal); G20.A2 Parkinson's disease without dyskinesia, with fluctuations; C61 Malignant neoplasm of prostate; R33.9 Retention of urine, unspecified; K62.5 Hemorrhage of anus and rectum; F03.90 Unspecified dementia, unspecified severity, without behavioral disturbance, psychotic disturbance, mood disturbance, and anxiety; R41.82 Altered mental status, unspecified
CPT/HCPCS: 36415; 80048; 85025

== ENCOUNTER 2025-07-10 04:53 | Inpatient (IN) | payer MEDICARE, OTHER, SELFPAY ==
[2025-07-10 00:24] VITALS: BP 98/56
[2025-07-10 00:50] LABS: Hematocrit 28.6 % (39.0-52.0); Hemoglobin 9.1 g/dL (13.0-18.0); Mean Corp Hgb Conc. 31.8 g/dL (33.0-37.0); Mean Corpuscular Volume 95.0 fL (80.0-94.0); Nucleated Red Blood Cells % 0 % (-); Platelet Count 229 10^3/uL (130-400); Red Cell Dist. Width 15.9 % (11.5-14.5)
[2025-07-10 01:00] VITALS: BP 112/58
[2025-07-10 01:13] LABS: ALT (SGPT) < 10 U/L (0-50); AST (SGOT) 21 U/L (17-59); Albumin 3.2 g/dl (3.5-5.0); Alkaline Phosphatase 85 U/L (38-126); Blood Urea Nitrogen 21 mg/dl (9-20); Calcium 8.3 mg/dl (8.4-10.2); Carbon Dioxide 27 mmol/L (22-30); Chloride 107 mmol/L (98-107); Glucose 129 mg/dl (70-99); Potassium 3.8 mmol/L (3.5-5.1); Sodium 136 mmol/L (135-145); Total Protein 5.5 g/dl (6.3-8.2); eGFR > 60.00
[2025-07-10] MEDS: NSS 1000 IV (01:45)
--- NOTE | 2025-07-10 02:30 | ED.GENMED ---
History of Present Illness
General
Chief Complaint: Urinary Symptoms
Source: patient, ambulance crew, jail and previous hospital records (2 recent hospitalizations this month for similar gross hematuria)
Exam Limitations: dementia
Time Seen by Provider: 07/10/25 01:24
Nursing documentation reviewed up to this point in time: agreed with
History of Present Illness
History of Present Illness:
This is an 85-year-old gentleman who resides at a local jail. He has history of Parkinson's disease with dementia with agitation. History of prostate cancer status post radiation with radiation cystitis and has been hospitalized here twice
within this past month for gross hematuria with clots requiring CBI. He also underwent cystoscopy on July 03 for clot evacuation and transurethral vaporization of bladder urothelium�extensive cauterization required. During most recent
hospitalization June 29 to July 05, urine culture grew positive for E. coli. Started on IV antibiotics, transitioned to Keflex 500 mg twice a day to be completed July 16. Due to persistent gross hematuria, acute blood loss anemia requiring
5 units packed red blood cells this most recent hospitalization.
He has history of CAD status post PCI to the RCA August 2024. TAVR October 2024, pacemaker, hyperlipidemia. Had been on low-dose aspirin and Plavix but with recurrent, persistent hematuria Plavix has been discontinued. Low-dose aspirin resumed
July 06.
He is sent to the ED via EMS due to recurrent gross hematuria and also noted to be significantly agitated, restless, combative. There has been no report of fever. He was given Versed 5 mg IM prehospital by installment account checker due to significant agitation.
He arrived to the ED moderately sedate, snoring. Briefly awakens with tactile and verbal stimulation.
Past History
Past History
ED Past Medical History: CAD, Cancer (Prostate CA), HTN, Hypercholesterolemia, Valvular disease (Aortic stenosis) and Other (Parkinson's/dementia with agitation)
ED Past Surgical History: Cardiac (PTCA with stent to the RCA August 2024, TAVR October 2024, pacemaker) and Urological (July 03, 2025-cystoscopy for clot evacuation, transurethral vaporization of bladder urothelium-extensive.)
Social History
Tobacco: Non-smoker
Alcohol: None
Drug: None
Personal:
Living: jail
Family History
Family History: Other (Noncontributory)
Phy Exam
Physical Exam
Physical Exam:
GENERAL: 85-year-old gentleman appears somewhat chronically debilitated. Sleeping, arouses briefly with verbal stimuli. Appears comfortable. Borderline hypotension noted. Afebrile.
EYE: anicteric. The head is normocephalic, atraumatic.
NECK: Supple, nontender, no meningismus, no significant adenopathy.
ENT: oral mucosa is moist. No rhinorrhea.
CARDIAC: Regular rate and rhythm. no murmur.
LUNGS: Clear breath sounds bilaterally, no acute respiratory distress
ABDOMEN: Soft, nondistended, minimal tenderness with deep palpation only to the suprapubic region. Bladder is not palpably distended, no r/g, normoactive BS. Hernández catheter draining grossly bloody urine without clots.
NEUROLOGICAL: Somnolent, opens his eyes briefly to verbal stimuli.
SKIN: Warm and dry, normal color, skin intact. No rash.
MUSCULOSKELETAL: No C/C/E. peripheral pulses are full and equal b/l. No palpable tenderness.
PSYCH: Somnolent. Briefly opens eyes to verbal stimuli.
Course
Orders/Labs/Results
Orders:
Orders
07/10/25 00:35
CMP [Comprehensive Metabolic Panel] Urgent
Complete Blood Count/With Diff Urgent
07/10/25 01:34
Bladder Scan- Treatment ONCE
07/10/25 01:40
0.9% Sodium Chloride 1000 ml [Nss] 1,000 ml IV BOLUS
07/10/25 02:29
CBI- Treatment PRN
Solution: NSS
Irrigate to Clear?: Yes
07/10/25 02:48
Haloperidol Lactate [Haldol] 2 mg IM NOW STA
07/10/25 02:50
Haloperidol Lactate [Haldol] 5 mg .ROUTE .STK-MED ONE
07/10/25 02:51
Restraints - Non Violent As Directed
Justification-Patient:: 1-Attempts to remove tube
Restraint Type-: Soft Limb-L Wrist/4rails
Soft Limb-R Wrist/4 rails
Apply From (date): 07/10/25
Apply from (time): 02:52
Remove (date): 07/11/25
Remove (time): 23:59
07/10/25 03:18
Type+Screen Urgent
07/10/25 04:28
Admit/Transfer Patient As Directed
Co-Sign Provider:
Level of Care: Inpatient admission
Assign to:: Medical/Surgical
Physician / Group: Dave
Diagnosis: Hematuria, Radiation Cystitis
Reason for Hospitalization: Hematuria, Radiation Cystitis
Expected length of stay greater than two midnights?: Yes
ELOS- Estimated Length of Stay in days: 3
I certify the patient meets the requirements for IP care: Yes
07/10/25 04:29
PRN Pain Medication Management As Directed
May give lesser potent ordered pain med per pt: Yes
preference::
Protocol:: Medication orders for pain may be administered in a
manner that supports deferring to patient preference
when the pt is:
- Requesting an ordered lesser potent pain medication.
Least to most potent pain medications are defined
as: acetaminophen < NSAID < tramadol < opioids
(morphine, oxycodone, hydromorphone).
- Requesting a lesser dose of the same medication IF
ORDERED.
- Requesting a less intrusive route of administration
if both routes are prescribed by the provider (PO <
IV).
07/10/25 04:31
Code Status As Directed
Resuscitation Status: Full Code
07/10/25 05:52
Acetaminophen [Tylenol] 650 mg PO Q4HPRN PRN
Quetiapine Fumarate [Seroquel] 12.5 mg PO Q6HPRN PRN
07/10/25 05:52
UROLOGY CONSULT Routine
Consulting Provider: Román Sorensen
Was physician already notified: Yes
Comment: Hematuria, Radiation Cystitis
Activity As Directed
Activity Level: Ambulate
With Assistance
Continous Bladder Irrigation As Directed
Solution: NSS
Keep urine: Free of clots
Light punch colored
I/O [Intake/ Output] As Directed
Frequency: Per unit guidelines
Pneumatic Compression Sleeves As Directed
Type: Knee high
Vital Signs As Directed
Frequency: Per unit guidelines
Oxygen Therapy [O2 Therapy] [RESP] Routine
Titrate/Wean O2 to maintain O2 sat greater than (%): 94
DX Deep Vein Thrombosis Video Routine
07/10/25 Breakfast
NPO
Allow oral meds: Yes
Allow clear liquids: Sips of Clears
Basic Metabolic Panel IN AM
Complete Blood Count/No Diff IN AM
PTT IN AM
Prothrombin Time IN AM
CefTRIAXone [Rocephin] 1,000 mg IV Q24H
07/10/25 08:00
Carbidopa/Levodopa [Sinemet 25-100] 1 tablet PO QID
Rasagiline Mesylate 1 mg PO DAILY
Tamsulosin [Flomax] 0.4 mg PO DAILY
calcium polycarbophil 625 mg PO BID
07/10/25 22:00
Atorvastatin [Lipitor] 40 mg PO HS
Carbidopa/Levodopa Cr [Sinemet Cr 50/200 (Extended Release)] 1 tablet PO HS
Entacapone [Comtan] 200 mg PO HS
Quetiapine Fumarate [Seroquel] 25 mg PO HS
Abnormal Lab Results
07/10/25
00:35
RBC 3.01 L 10^6/uL
(4.70-6.10)
Hgb 9.1 L g/dL
(13.0-18.0)
Hct 28.6 L %
(39.0-52.0)
MCV 95.0 H fL
(80.0-94.0)
MCHC 31.8 L g/dL
(33.0-37.0)
RDW 15.9 H %
(11.5-14.5)
Absolute Lymphs (auto) 1.0 L 10^3/uL
(1.2-3.4)
Lymphocytes % 14.7 L %
(20.5-51.1)
Monocytes % 9.4 H %
(1.7-9.3)
BUN 21 H mg/dl
(9-20)
Creatinine 0.5 L mg/dL
(0.7-1.3)
Glucose 129 H mg/dl
(70-99)
Calcium 8.3 L mg/dl
(8.4-10.2)
Total Protein 5.5 L g/dl
(6.3-8.2)
Albumin 3.2 L g/dl
(3.5-5.0)
07/10/25 00:35
07/10/25 00:35
Vital Signs
Initial and Last Documented VS:
Initial Vital Signs
Temp Pulse Resp BP Pulse Ox
98.4 F 88 18 98/56 97
07/10/25 00:24 07/10/25 00:24 07/10/25 00:24 07/10/25 00:24 07/10/25 00:24
Last Documented Vital Signs
Temp Pulse Resp BP Pulse Ox
98.4 F 82 18 112/58 97
07/10/25 00:24 07/10/25 02:15 07/10/25 04:00 07/10/25 01:00 07/10/25 02:46
MDM/Problems Addressed
Differential Diagnosis Includes:
Recurrent gross hematuria.
History of radiation cystitis with recurrent hematuria with episodes of acute blood loss anemia requiring blood transfusions as well as a recent cystoscopy for vaporization of bladder wall.
Concern for recurrent bladder wall hemorrhage.
Concern for persistent UTI. Sepsis.
Concern for recurrent blood loss anemia especially in light of borderline hypotension.
There has been no report of fall nor injury. Hematuria is not consistent with trauma.
He has known history of Parkinson's disease along with dementia with agitation/behavioral disturbances.
EMS report significant agitation requiring an IM dose of Versed prehospital. Patient required as needed sedatives and psychiatry evaluation during recent hospitalizations.
Will check labs, urinalysis, type and screen.
Will initiate IV fluids.
Will contact urology regarding gross hematuria and discuss initiation of CBI versus observation.
Due to gross hematuria and recent episode requiring multiple blood transfusions patient will require acute hospitalization for close observation, serial H&H, likely initiation of CBI.
Chronic conditions affecting care: CAD, Psychiatric illness and Cancer
*Pulse Oximetry
SaO2: 97
Oxygen Mode of Delivery: Room air
Patient hypoxic: no
*Critical Care Note
Total Time (30-74mins, 75-104mins- exclusive of procedures): Not Applicable
Update Note
Update Note:
02:50
BP has improved.
Hernández catheter continues to drain grossly bloody urine.
Case discussed with urology. Recommends initiation of CBI.
Patient is now agitated, restless, and has pulled out his IVs. Unable to be redirected verbally.
Will give an IM dose of Haldol and plan to reestablish IVs.
Soft restraints to arms.
Will initiate CBI. Will type and screen.
Will plan to admit to hospitalist service.
ED Attending Note
-
Portions of this chart may have been created with voice recognition software.� Occasional wrong word or��sound alike� substitutions may have occurred due to the inherent limitations of voice recognition software.
Discharge Plan
Departure
Patient Disposition: Admit
Date of Disposition: 07/10/25
Time of Disposition: 03:06
Admit to: Med/Surg
Admit to doctor: Dave
Presentation/result/management discussed w/ accepting MD/DO: Hospitalist
Condition: Fair
Discharge Problem:
Recurrent gross hematuria, Delirium superimposed on dementia, Dementia with agitation
Interventions
Interventions:
*Risk Screen - Suicide Last Done: 07/10/25 00:24
*General Assessment Last Done: 07/10/25 00:24
*Neglect/Abuse Screening Last Done: 07/10/25 00:24
*ED- Fall Risk Assessment Last Done: 07/10/25 00:24
*ED COVID-19 Vaccine History Last Done: 07/10/25 00:24
*Nursing Disposition Last Done: 07/10/25 05:34
ED-Male Genitourinary Assessment Last Done: 07/10/25 01:31
Discharge Date and Time
Discharge Date/Time: 07/10/25 05:35
[2025-07-10] MEDS: HALDOL 2 MG IM (02:51)
--- NOTE | 2025-07-10 04:35 | HPS.HSE ---
Family Physician
-
Family Physician: Fani Duff,
Chief Complaint
-
Bloody urine
History of Present Illness
Patient is an 85y M with PMH significant for Parkinson's with dementia, prostate cancer s/p XRT, ASCVD s/p stent and recent admission(s) for hematuria who presents to ED from local [place] for evaluation of gross hematuria in Hernández catheter. Patient
was admitted here at on 05/29 and 06/29 with gross hematuria requiring CBI. He was taken for cysto with clot evacuation and fulguration on 07/03. His ASA and Plavix were held. He required significant transfusion of blood products - 5 units PRBCs.
Patient was discharged to [facility] on 07/05. Tentative plan was for restart of ASA on 07/06 - though it is not clear whether or not this occurred. ASA does not appear on his current [place] MAR.
This evening patient was noted to have recurrent gross hematuria as well as increased agitation at MD. He was sent to the ED for evaluation.
CBI was restarted in the ED. Patient received medication for agitation and at the time of my exam he is sleeping soundly and does not answer questions or follow commands.
Medical History
Past Medical History
Past Medical History: Reports Other
Additional Past Medical History:
Parkinson's Disease with Dementia
ASCVD
Aortic Stenosis
SSS
Prostate Cancer s/p XRT
Radiation Cystitis
Past Surgical History: Reports Other
Additional Past Surgical History:
Cysto with Clot Evacuation / Fulguration (07/03/25)
PTCA with RCA Stent (08/2024)
TAVR (10/2024)
PPM Placement
Cerebral Stimulator Implant
Social History
Unable to obtain full social history at this time due to: Patient Non-verbal
Family History
Family History: Unable to Obtain
Allergies / Home Medications
Allergies reflects when Allergies were last updated in [facility].
Home Medications with original date entered in [facility]
Allergy/Medication List:
Allergies
Allergy/AdvReac Type Severity Reaction Status Date / Time
Sulfa (Sulfonamide Allergy Unknown Verified 07/10/25 01:30
Antibiotics)
Home Medications
acetaminophen 500 mg tablet 500 mg PO BIDPRN PRN mild pain 06/08/25
ascorbic acid (vitamin C) 500 mg tablet 500 mg PO DAILY Supplement 06/08/25
atorvastatin 40 mg tablet 40 mg PO HS cholesterol 06/08/25
calcium polycarbophil 625 mg tablet 625 mg PO BID constipation 06/08/25
carbidopa 25 mg-levodopa 100 mg tablet 1 tab PO QID parkinson's disease 06/08/25
carbidopa ER 50 mg-levodopa 200 mg tablet,extended release 1 tab PO HS parkinson's disease 06/08/25
coenzyme Q10 100 mg capsule (Co Q-10) 100 mg PO BID Supplement 06/08/25
docusate sodium 100 mg capsule 100 mg PO DAILY Constipation 06/08/25
entacapone 200 mg tablet 200 mg PO HS parkinson's disease 06/08/25
flaxseed oil 1,000 mg capsule 1,000 mg PO DAILY Supplement 06/08/25
quetiapine 25 mg tablet 25 mg PO HS Mental Health/Anxiety 06/08/25
rasagiline 1 mg tablet 1 mg PO DAILY parkinson's disease 06/08/25
vitamin B complex 1 tab PO DAILY Supplement 06/08/25
zinc acetate 50 mg (zinc) capsule 50 mg PO DAILY Supplement 06/08/25
cetirizine 10 mg tablet 10 mg PO DAILYPRN PRN allergy #0 tabs 06/20/25
bisacodyl 10 mg rectal suppository (Dulcolax (bisacodyl)) 10 mg WV DAILY PRN constipation 06/29/25
magnesium hydroxide 400 mg/5 mL oral suspension (Milk of Magnesia) 30 ml PO DAILY PRN constipation 06/29/25
sodium phosphates 19 gram-7 gram/197 mL enema (Fleet Enema Extra) 197 ml WV ONCE Constipation 06/29/25
cephalexin 500 mg capsule 500 mg PO Q12H #22 caps 07/05/25
tamsulosin 0.4 mg capsule 0.4 mg PO DAILY #30 caps 07/05/25
Review of Systems
-
Unable to obtain full review of systems at this time due to: Patient Non-verbal
Physical Exam
Vital Signs
Vital Signs
Temp Pulse Resp BP Pulse Ox
98.4 F 87 18 112/58 97
07/10/25 00:24 07/10/25 02:00 07/10/25 02:00 07/10/25 01:00 07/10/25 02:46
Physical Exam
General: Other (85y M currently sleeping soundly. Does not answer questions / follow commands. Withdraws from tactile stim / pain.)
HEENT: Other (Dry MM. Dentures in place)
Respiratory: Clear; No Wheezes, Rales or Rhonchi
Cardiac: S1/S2, Regular Rhythm and Murmur (II/ LILIANE)
GI: Soft, Non Tender, Non Distended and Normal Bowel Sounds
Genito-urinary: Other (Hernández / 3-way in place draining punch-colored urine.)
Musculoskeletal: No Clubbing, No Cyanosis and Other (Trace pedal edema b/l.)
Laboratory Results
-
07/10/25 00:35
07/10/25 00:35
Laboratory Results
Total Bilirubin 0.4 mg/dl (0.2-1.3) 07/10/25 00:35
AST 21 U/L (17-59) 07/10/25 00:35
ALT < 10 U/L (0-50) 07/10/25 00:35
Alkaline Phosphatase 85 U/L (38-126) 07/10/25 00:35
Impression/Plan
-
A/P: Patient is an 85y M with PMH significant for Parkinson's with dementia, ASCVD s/p stent and recent issues with gross hematuria who presents to ED from [facility] for recurrent hematuria.
Gross Hematuria
Radiation Cystitis
Acute Blood Loss Anemia
Anemia of Chronic Disease
- Admit for further evaluation and treatment.
- Resume CBI.
- Continue to hold ASA. Plavix permanently discontinued last admission.
- ASA was tentatively set to restart on 07/06 - though it is not clear from [place] MAR that it was ever restarted - not listed in current medications.
- Urology consulted for further evaluation.
- Follow H&H for any changes.
- Hgb is stable at present compared to recent values. Additional transfusion support if needed.
E coli UTI
- Diagnosed during prior admission.
- Change Keflex to ceftriaxone for now.
- Current course through 07/16.
ASCVD
Aortic Stenosis s/p TAVR
- Stable. No noted chest pain, dyspnea, etc.
- s/p PTCA with stent 08/2024. Plavix discontinued.
- Remain off of ASA for now as well given active bleeding.
- Monitor for any new symptoms.
Parkinson's with Dementia
Acute Agitation
- Suspect acute agitation due to urinary retention / clot from hematuria.
- CBI / hematuria treatment as noted above.
- Continue current psychotropic med regimen +/- PRN agents.
DVT prophylaxis: SCDs
Code Status: Full
[2025-07-10 05:52] VITALS: BMI 23.6
[2025-07-10 06:07] VITALS: BP 99/72
[2025-07-10] MEDS: ROCEPHIN 1000 MG IV (06:29)
[2025-07-10] MEDS: STERILE WATER FOR INJECTION 10 ML IV (06:29)
--- NOTE | 2025-07-10 07:31 | PTCARENOTE ---
pt is drowsy/lethargic from haldol given in emergency room. pt restraints are intact. cbi running - irrigated and removed multiple clots- urine now flowing yellow. bags #3 and 4 up. pt on bed alarm. reported given to MARY GRACE Elkins.
--- NOTE | 2025-07-10 07:34 | W.PN.HOSP.TC ---
Addendum entered and electronically signed by Anival Paul MD 07/10/25 22:05:
Attending Addendum-
I saw and evaluated the patient. I reviewed the resident�s note and agree with findings and plan as documented in the resident�s note. Sub: pleasantly demented. No complaints. Overnight had period of agitation and given haldol. Hematuria seems to
have resolved. Full 12 point ROS reviewed and negative except as documented Exam: Vitals reviewed in chart GEN-NAD heart RRR lungs clear abd soft LE no edema Neuro AAO x [address] with pinkish urine
Plan:
#Acute Blood Loss Anemia from hematuria
-Radiation Cystitis
-Anemia of Chronic Disease
- stop CBI
- Continue to hold ASA. Plavix permanently discontinued last admission.
- ASA was tentatively set to restart on 07/06 - though it is not clear from [place] MAR that it was ever restarted
- Urology input appreciated
- Follow H&H
- tx for hb < 7
- DC in am if stable
#E coli UTI
- Diagnosed 06/29
- Changed Keflex to ceftriaxone for now.
- Current course through 07/16
- repeat urine cx-P
# ASCVD
- Aortic Stenosis s/p TAVR
- Stable
- s/p PTCA with stent 08/2024. Plavix discontinued.
- DC ASA given active bleeding.
- CTM
#Parkinson's with Dementia and behavioral disturbance
-Acute Agitation/Delirium
-Continue home med regimen- Seroquel, Comtan, levo/dopa, rasagiline + PRN agents
# H/O Prostate ca with radiation cystitis- care per uro
DVT prophylaxis: SCDs
Code Status: Full
Dispo- return back to [facility]
Time spent coordinating care, review of plan of care with resident, personally reviewed records in EMR, med rec, consults, notes, labs, radiology, d/w nursing � 53 mins
Original Note:
Today's Communication/Plan
-
- Urology consulted, appreciate recs
- CBI stopped
- Follow hemoglobin/hematocrit (q8h) - transfuse if hgb<7
- Hold ASA
- Convert keflex to IV ceftriaxone 1000mg daily while inpt (to finish 07/16)
- Urine cx pending
- Continue psychotropic med regimen (carbidopa/levodopa, entacapone, quetiapine, rasagiline)
- PRN quetiapine 12.5mg q6h
Assessment / Plan
Assessment / Plan
Michael Ramirez is an 85yo M with a pmh of ASCVD s/p stent, s/p TAVR, Parkinson's dementia, prostate cancer s/p radiation c/b radiation cystitis, recurrent hematuria w clots requiring CBI (last discharged 07/05), & recent ecoli UTI who p/w gross
hematuria and agitation, now s/p CBI.
#Gross Hematuria
#Radiation Cystitis
#Acute Blood Loss Anemia
Two recent admissions to (05/29 and 06/29) for gross hematuria requiring CBI. On most recent admission (), required 5 units PRBCs. On 07/03, pt was taken for cysto with clot evacuation and transurethral vaporization of bladder
urothelium�extensive cauterization. Plavix was permanently stopped at that time; ASA held and unclear if restarted on 07/06. Hgb 9.1, Hct 28.6, RBC 3.01 this admission (07/10). BP 99/72 this am. Per urology, rebleeds can occur ~1 week s/p fulguration
- likely etiology of current bleed.
- Urology consulted, appreciate recs
- CBI
- Follow hemoglobin/hematocrit (q8h) - transfuse if hgb<7
- Hold ASA
#E coli UTI
During 06/29- hospitalization, urine cx with e coli. Started IV abx, transitioned to keflex 500bid with plan to finish 07/16/25. Afebrile. WBC wnl (6.8, 7.4).
- Convert keflex to IV ceftriaxone 1000mg daily while inpt (to finish 07/16)
- Urine cx pending
#Parkinson's with Dementia
#Acute Agitation
Pt with hx of Parksinson's w agitation. Likely exacerbated by urinary sx (retention, hematuria). Pt received Versed 5 mg IM prehospital & haldol 2mg in ED.
- Continue trt of urinary sx as above
- Continue psychotropic med regimen (carbidopa/levodopa, entacapone, quetiapine, rasagiline)
- PRN quetiapine 12.5mg q6h
#Chronic issues
#ASCVD s/p stent; s/p TAVR; pacemaker - holding ASA
#HLD - continue atorvastatin 40mg
#Global
- DVT prophylaxis: SCDs
- Code Status: Full
- Dispo: lives at [facility]; likely d/c with catheter & abx & holding ASA within 24hr if hgb remains stable without clots
Anticipated Discharge: Within 24 hours
Subjective/Interval History
-
Date of Service: July 10, 2025
Difficult to arouse, snoring asleep. S/p versed, haldol during admission course.
Objective Data
-
Labs:
Laboratory Results
07/10/25 07/10/25
00:35 06:58
WBC 6.8 Pending
Hgb 9.1 L Pending
Hct 28.6 L Pending
Plt Count 229 Pending
PT Pending
INR Pending
APTT Pending
Sodium 136 Pending
Potassium 3.8 Pending
Chloride 107 Pending
Carbon Dioxide 27 Pending
BUN 21 H Pending
Creatinine 0.5 L Pending
Glucose 129 H Pending
Calcium 8.3 L Pending
Total Bilirubin 0.4
AST 21
ALT < 10
Alkaline Phosphatase 85
Vital Signs:
Vital Signs
Temp Pulse Resp BP Pulse Ox
98.0 F 77 20 99/72 97
07/10/25 06:07 07/10/25 06:07 07/10/25 06:07 07/10/25 06:07 07/10/25 06:07
I&O
07/09/25 07/10/25 07/11/25
06:59 06:59 06:59
Output Total 1400 / 1400
Balance -1400 / -1400
Review of Systems
-
Unable to obtain full review of systems at this time due to: Patient Non-verbal and Other (patient asleep)
Physical Exam
-
General: Other (asleep, snoring, not arousable)
HEENT: Normocephalic, Atraumatic, Anicteric and [place] Conjunctivae (somewhat pale appearing )
Respiratory: Wheezes (none), Non Labored Respirations and Accessory Resp Muscle Use (none)
Cardiac: Regular Rhythm and S1/S2
GI: Soft and Nondistended
Genito-urinary: Continuous Bladder Irrigation (fluid in bag looked clear/yellow without gross blood)
Musculoskeletal: Other
Skin: Warm, Dry and Other (pale fingers & nail beds )
Hematologic / Lymphatic: Other (bilateral dorsalis pedis & radial pulses strong & palpable)
Data Reviewed
-
Total Time Spent with Patient (in minutes): 10
Critical Care Time (in minutes): 30
Labs: Labs Reviewed by me
[2025-07-10] MEDS: SINEMET 25-100 PO (08:00)
[2025-07-10 08:40] LABS: INR 1.09; PT 14.6 Sec (11.4-14.6)
[2025-07-10 08:41] LABS: APTT 29.2 Sec (23.4-35.0)
[2025-07-10 08:43] LABS: Hematocrit 31.0 % (39.0-52.0); Hemoglobin 9.7 g/dL (13.0-18.0); Mean Corp Hgb Conc. 31.3 g/dL (33.0-37.0); Mean Corpuscular Volume 97.2 fL (80.0-94.0); Platelet Count 248 10^3/uL (130-400); Red Cell Dist. Width 15.8 % (11.5-14.5)
[2025-07-10 08:49] LABS: Blood Urea Nitrogen 17 mg/dl (9-20); Calcium 8.7 mg/dl (8.4-10.2); Carbon Dioxide 28 mmol/L (22-30); Chloride 108 mmol/L (98-107); Estimated Creatinine Clearance 91 ml/min; Glucose 90 mg/dl (70-99); Potassium 4.3 mmol/L (3.5-5.1); Sodium 138 mmol/L (135-145); eGFR > 60.00
--- NOTE | 2025-07-10 10:19 | W.PN.URO.CBU ---
Today's Communication / Plan
-
stop cbi d/c pt if stable by am
Assessment / Plan
-
radiation cystitis with heaturia resolved recent e coli uti
Diagnosis
-
Date of Service: July 10, 2025
-
radiatio cystitis with hematuria now clearedPatient Diagnosis:
Post Op Day:
Subjective
-
non commuicative this am
Objective
-
Vital Signs
Temp Pulse Resp BP Pulse Ox
98.0 F 77 20 99/72 97
07/10/25 06:07 07/10/25 06:07 07/10/25 06:07 07/10/25 06:07 07/10/25 06:07
Intake and Output
07/09/25 07/10/25 07/11/25
06:59 06:59 06:59
Output Total 4200 / 4200
Balance -4200 / -4200
Output:
Urine, Hernández 2800 / 2800
True Urine Output from CBI 1400 / 1400
Laboratory Results
07/10/25 06:58
Review of Systems
-
: Difficulty Voiding
Physical Exam
-
General - well developed, well nourished, no acute distress
Chest - clear bilaterally
Abdomen - soft, non-tender, positive bowel sounds, no CVAT, no incisional pain or distention
Genitalia - normal
Rectal - normal
Skin - warm & dry with no rash
Neuro - AOx3, no motor deficits
Extremities - no clubbing, no cyanosis, no edema
Incision - clean, dry
Dressing - clean, dry, intact
Counseling
-
hols cbi restart if major clots
Care Review
Data Reviewed
Discussed with: Hospitalist and Nursing
CT Scan: Image Pers Reviewed
[2025-07-10 10:50] LABS: Hematocrit 30.7 % (39.0-52.0); Hemoglobin 9.7 g/dL (13.0-18.0)
[2025-07-10] MEDS: FLOMAX 0.4 MG PO (11:20)
[2025-07-10] MEDS: RASAGILINE MESYLATE 1 MG PO (11:21)
[2025-07-10] MEDS: SINEMET 25-100 1 TABLET PO ×3 (11:22→21:40)
[2025-07-10 15:41] VITALS: BP 124/61
[2025-07-10] MEDS: METAMUCIL, KONSYL 1 PACKET PO (16:14)
[2025-07-10 19:17] LABS: Hematocrit 30.6 % (39.0-52.0); Hemoglobin 10.1 g/dL (13.0-18.0)
[2025-07-10] MEDS: TYLENOL 650 MG PO (21:39)
[2025-07-10] MEDS: COMTAN 200 MG PO (21:39)
[2025-07-10] MEDS: LIPITOR 40 MG PO (21:40)
[2025-07-10] MEDS: SEROQUEL 25 MG PO (21:40)
[2025-07-10] MEDS: SINEMET CR 50/200 (EXTENDED RELEASE) 1 TABLET PO (21:40)
[2025-07-11 02:36] LABS: Hematocrit 28.1 % (39.0-52.0); Hemoglobin 9.2 g/dL (13.0-18.0)
[2025-07-11] MEDS: STERILE WATER FOR INJECTION 10 ML IV (05:06)
[2025-07-11] MEDS: ROCEPHIN 1000 MG IV (05:06)
--- NOTE | 2025-07-11 07:09 | W.PN.HOSP.TC ---
Addendum entered and electronically signed by Anival Paul MD 07/11/25 22:26:
Attending Addendum-
I saw and evaluated the patient. I reviewed the resident�s note and agree with findings and plan as documented in the resident�s note. Sub: pleasantly demented. No complaints. Hematuria resolved. Full 12 point ROS reviewed and negative except as
documented Exam: Vitals reviewed in chart GEN-NAD heart RRR lungs clear abd soft LE no edema Neuro AAO x 1 linn with clear yellow urine
Plan:
#Acute Blood Loss Anemia from hematuria
-Radiation Cystitis
-Anemia of Chronic Disease
- resolved
- Continue to hold ASA. Plavix permanently discontinued last admission.
- ASA was tentatively set to restart on 07/06 - though it is not clear from [place] MAR that it was ever restarted
- Urology input appreciated
- Follow H&H
- tx for hb < 7
- DC
#E coli UTI
- Diagnosed 06/29
- Changed Keflex to ceftriaxone while IP
- Current course through 07/16 keflex
- repeat urine cx-NO GROWTH
# ASCVD
- Aortic Stenosis s/p TAVR
- Stable
- s/p PTCA with stent 08/2024. Plavix discontinued.
- DC ASA
- CTM
#Parkinson's with Dementia and behavioral disturbance
-Acute Agitation/Delirium
-Continue home med regimen- Seroquel, Comtan, levo/dopa, rasagiline + PRN agents
# H/O Prostate ca with radiation cystitis- care per uro
DVT prophylaxis: SCDs
Code Status: Full
Dispo- return back to [facility]
Time spent coordinating care, DC planning, review of DC plan of care with resident, transition of care, review of records, med rec/scripts sent electronically, consults, notes, d/w consultants, nursing, family, and CM� 31 mins >50% of this time was
devoted to counseling and coordination of care
Original Note:
Today's Communication/Plan
-
- Per urology, okay for discharge today given appearance of urine this am
- Hold ASA indefinitely
- Convert keflex to IV ceftriaxone 1000mg daily while inpt (to finish 07/16)
- Urine cx pending, f/u OP
Assessment / Plan
Assessment / Plan
Michael Ramirez is an 85yo M with a pmh of ASCVD s/p stent, s/p TAVR, Parkinson's dementia, prostate cancer s/p radiation c/b radiation cystitis, recurrent hematuria w clots requiring CBI (last discharged 07/05), & recent ecoli UTI who p/w gross
hematuria and agitation, now s/p CBI w clearance of gross hematuria.
#Gross Hematuria
#Radiation Cystitis
Two recent admissions to (05/29 and 06/29) for gross hematuria requiring CBI. On most recent admission (06/29-), required 5 units PRBCs. On 07/03, pt was taken for cysto with clot evacuation and transurethral vaporization of bladder
urothelium�extensive cauterization. Plavix was permanently stopped at that time; ASA held and unclear if restarted on 07/06. Hgb 9.1, Hct 28.6, RBC 3.01 this admission (07/10). Per urology, rebleeds can occur ~1 week s/p fulguration - likely etiology
of current bleed +/- irritation from linn & resolving e coli UTI. AVSS today, BP uptrended 124/61. Hgb uptrend 9.3 today. Urine pink hue but not gross hematuria, cleared per urology eval.
- Per urology, okay for discharge today given appearance of urine this am
- Follow hemoglobin/hematocrit - transfuse if hgb<7
- Hold ASA indefinitely
#E coli UTI
During 06/29- hospitalization, urine cx with e coli. Started IV abx, transitioned to keflex 500bid with plan to finish 07/16/25. Afebrile. WBC wnl (6.8, 7.4).
- Convert keflex to IV ceftriaxone 1000mg daily while inpt (to finish 07/16)
- Urine cx pending
#Parkinson's with Dementia
#Acute Agitation
Pt with hx of Parksinson's w agitation. Likely exacerbated by urinary sx (retention, hematuria). Pt received Versed 5 mg IM prehospital & haldol 2mg in ED.
- Continue trt of urinary sx as above
- Continue psychotropic med regimen (carbidopa/levodopa, entacapone, quetiapine, rasagiline)
- PRN quetiapine 12.5mg q6h
#Chronic issues
#ASCVD s/p stent; s/p TAVR; pacemaker - holding ASA
#HLD - continue atorvastatin 40mg
#Global
- DVT prophylaxis: SCDs
- Code Status: Full
- Dispo: lives at [facility]; likely d/c with catheter & abx & holding ASA today; discharge [place]
Anticipated Discharge: Today
Subjective/Interval History
-
Date of Service: July 11, 2025
Pt awake & talkative today. Intermittently tearful talking about & grandkids. No new pain, feeling okay. No shortness of breath. Has not had any BMs yet after getting laxatives yesterday.
Objective Data
-
Labs:
Laboratory Results
07/10/25 07/11/25 07/11/25
19:05 02:26 06:00
WBC Pending
Hgb 10.1 L 9.2 L Pending
Hct 30.6 L 28.1 L Pending
Plt Count Pending
Sodium Pending
Potassium Pending
Chloride Pending
Carbon Dioxide Pending
BUN Pending
Creatinine Pending
Glucose Pending
Calcium Pending
Total Bilirubin Pending
AST Pending
ALT Pending
Alkaline Phosphatase Pending
Vital Signs:
Vital Signs
Temp Pulse Resp BP Pulse Ox
97.6 F 84 16 124/61 96
07/10/25 15:41 07/10/25 15:41 07/10/25 15:41 07/10/25 15:41 07/11/25 03:13
I&O
07/10/25 07/11/25 07/12/25
06:59 06:59 06:59
Intake Total 960 / 960
Output Total 6450 / 6450
Balance -5490 / -5490
Review of Systems
-
Unable to obtain full review of systems at this time due to: Dementia (parkinson)
History Source: Patient
Respiratory: Reports No Symptoms
Cardiac: Reports No Symptoms
Abdomen/GI: Reports Constipated
Psych: Reports Sad
Physical Exam
-
General: No Apparent Distress and Conversant
HEENT: Normocephalic, Atraumatic and Anicteric
Respiratory: Clear to Auscultation
Cardiac: Regular Rhythm and S1/S2
Genito-urinary: Linn (urine bag with some pink hue today )
Musculoskeletal: Other (strong radial pulses bilaterally )
Skin: Warm and Dry
Neuro: Other (masked facies)
Data Reviewed
-
Total Time Spent with Patient (in minutes): 15
Critical Care Time (in minutes): 35
Labs: Labs Reviewed by me
[2025-07-11 07:35] VITALS: BP 98/51
[2025-07-11] MEDS: RASAGILINE MESYLATE 1 MG PO (07:38)
[2025-07-11] MEDS: FLOMAX 0.4 MG PO (07:39)
[2025-07-11] MEDS: SINEMET 25-100 1 TABLET PO ×3 (07:39→17:01)
[2025-07-11] MEDS: METAMUCIL, KONSYL 1 PACKET PO (07:39)
[2025-07-11] MEDS: SEROQUEL 12.5 MG PO ×2 (07:46→17:02)
--- NOTE | 2025-07-11 07:49 | W.PN.URO.CBU ---
Today's Communication / Plan
-
PLAN PER HOSPITALIST
Assessment / Plan
-
radiation cystitis with heMaturia resolved recent e coli uti HEMATUROIA STOPED OFF CBI CONSIDER DISCHARGE ON PO ABS
Diagnosis
-
Date of Service: July 11, 2025
-
Patient Diagnosis:
Post Op Day:
radiatio cystitis with hematuria now clearedPatient Diagnosis:
Post Op Day:
Subjective
-
NO HEMATURIA PT CONVERSANT TODAY
Objective
-
Vital Signs
Temp Pulse Resp BP Pulse Ox
97.6 F 84 16 124/61 96
07/10/25 15:41 07/10/25 15:41 07/10/25 15:41 07/10/25 15:41 07/11/25 03:13
Intake and Output
07/10/25 07/11/25 07/12/25
06:59 06:59 06:59
Intake Total 960 / 960
Output Total 6450 / 6450
Balance -5490 / -5490
Intake:
Oral fluids 960 / 960
Output:
Urine, Hernández 1850 / 1850
True Urine Output from CBI 4600 / 4600
Review of Systems
-
: Difficulty Voiding
Physical Exam
-
General - well developed, well nourished, no acute distress
Chest - clear bilaterally
Abdomen - soft, non-tender, positive bowel sounds, no CVAT, no incisional pain or distention
Genitalia - normal
Rectal - normal
Skin - warm & dry with no rash
Neuro - AOx3, no motor deficits
Extremities - no clubbing, no cyanosis, no edema
Incision - clean, dry
Dressing - clean, dry, intact
Care Review
Data Reviewed
Discussed with: Nursing
[2025-07-11 07:57] LABS: Hematocrit 29.6 % (39.0-52.0); Hemoglobin 9.3 g/dL (13.0-18.0); Mean Corp Hgb Conc. 31.4 g/dL (33.0-37.0); Mean Corpuscular Volume 96.7 fL (80.0-94.0); Nucleated Red Blood Cells % 0 % (-); Platelet Count 237 10^3/uL (130-400); Red Cell Dist. Width 16.0 % (11.5-14.5)
[2025-07-11 08:33] LABS: ALT (SGPT) < 10 U/L (0-50); AST (SGOT) 22 U/L (17-59); Albumin 3.1 g/dl (3.5-5.0); Alkaline Phosphatase 87 U/L (38-126); Blood Urea Nitrogen 14 mg/dl (9-20); Calcium 8.6 mg/dl (8.4-10.2); Carbon Dioxide 28 mmol/L (22-30); Chloride 105 mmol/L (98-107); Estimated Creatinine Clearance 91 ml/min; Glucose 89 mg/dl (70-99); Potassium 4.4 mmol/L (3.5-5.1); Sodium 134 mmol/L (135-145); Total Protein 5.1 g/dl (6.3-8.2); eGFR > 60.00
--- NOTE | 2025-07-11 10:58 | CM ---
Patient w/ dementia. Spoke w/ patient's , Susannah, initial assessment completed. Patient is an 85y M with PMH significant for Parkinson's with dementia, prostate cancer s/p XRT, ASCVD s/p stent and recent admission(s) for hematuria who presents to
ED from local [place] for evaluation of gross hematuria in Hernández catheter.
Patient admitted from [facility] where he was receiving short term rehab for the past 3 weeks on and off. Per spouse, patient has a bed hold and will return upon d/c. Patient will d/c today per hospitalist. Spouse stated patient will cont w/ rehab and
transfer to a memory care facility in [place]. Spoke w/ [facility] director, agreeable for patient to return, confirmed bed hold for patient.
Otherwise, [facility] ed[facility] Independent w/ ambulation w/ a cane as needed, independent w/ ADLs. Patient edgar participated in [facility] for his Parkinson's at [facility].
PCP: Fani Duff
Pharmacy: [place], [place]
Patient will require ambulance transport, forms on chart
IMM verbally reviewed w/ spouse, copy on chart
[facility]
Report: [phone]

Plan: D/c today to [facility]
--- NOTE | 2025-07-11 13:53 | W.DCSUMMARY ---
Addendum entered and electronically signed by Anival Paul MD 07/11/25 22:27:
Read, reviewed, and agree. See same day progress note for additional details.
Dwayne Paul MD
Original Note:
Documented by User: Belkis Almanzar MD, Resident 07/11/25 14:03
Discharge Summary
Discharge Data
Date of Admission: 07/10/25
Date of Discharge: 07/11/25
Total time spent discharging patient (in min): 30
-
Pending Results: Yes
Additional Pending Results:
Urine culture
Hospital Course
Discharging Physician : Anival Paul; Belkis Almanzar
Disposition : to [facility]
Primary care physician : Fani Duff DO
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 coli UTI
Chronic Discharge diagnoses :
Parkinson's with dementia; ASCVD status post stent; aortic stenosis status post TAVR; HLD
Hospital Course :
1. Gross Hematuria in s/o radiation cystitis
Two recent admissions to (05/29 and 06/29) for gross hematuria requiring CBI. On most recent admission (06/29-), required 5 units PRBCs. On 07/03, pt was taken for cystoscopy with clot evacuation and transurethral vaporization of bladder
urothelium�extensive cauterization. Plavix was permanently stopped at that time; ASA held and unclear if restarted on 07/06.
On this admission patient brought in 07/10 due to worsening agitation and gross hematuria. Hgb 9.1, Hct 28.6, RBC 3.01 on admission. Per urology, rebleeds can occur ~1 week s/p fulguration - likely etiology of current bleed +/- irritation from linn
catheter & resolving e coli UTI. Patient was restarted on CBI and admitted to the floor. CBI stopped during the day 07/10 due to clearance of blood from urine. Today, 07/11, AVSS, blood pressure 124/61. Hemoglobin up trended to 9.3. Urine cleared
of gross hematuria. Urology cleared for discharge home with Linn. Continue holding aspirin and Plavix indefinitely.
2. E. coli UTI
During patient's hospitalization from 06/29-, urine culture returned positive for E. coli. Susceptible to ceftriaxone, started inpt. Transitioned to 500bid with plan to finish 07/16/25. Patient was continued on ceftriaxone 1000 mg daily while
inpatient. To be continued on Keflex 500 mg twice daily through 07/16 to finish initial antibiotics course. Patient afebrile and without leukocytosis for this admission. Urine cultures sent this admission, pending at time of discharge. To follow-up
outpatient.
3. Acute agitation in the setting of Parkinson's dementia
Pt with hx of Parksinson's w agitation. Likely exacerbated by urinary sx (retention, hematuria). Pt received Versed 5 mg IM prehospital & haldol 2mg in ED. Patient was continued on psychotropic med regimen (carbidopa/levodopa, entacapone,
quetiapine, rasagiline) while inpatient. Patient agitation resolved and calm during day at time of discharge
Important imaging findings : N/A
Procedure findings : N/A
Discharge Plan
-
Patient Disposition: [facility]/SNF
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
Condition: Fair
Diet: Regular
Activity: As tolerated
Driving Restrictions: As prior to admission
Bathing Restrictions: None
Referrals:
Román Sorensen MD [Active, Urology]
Fani Duff DO [Family Provider, General]
Additional Discharge Medication Instructions: Finish taking keflex 500mg twice daily (antibiotic for UTI) through 07/16/25.
Do NOT restart taking aspirin or plavix.
Prescriptions:
Continued
quetiapine 25 mg Tablet
25 mg PO HS
atorvastatin 40 mg tablet
40 mg PO HS
zinc acetate 50 mg (zinc) Capsule
50 mg PO DAILY
carbidopa-levodopa 50-200 mg tablet extended release
1 tab PO HS
acetaminophen 500 mg Tablet
500 mg PO BIDPRN PRN (Reason: mild pain)
flaxseed oil 1,000 mg Capsule
1,000 mg PO DAILY
entacapone 200 mg tablet
200 mg PO HS
ascorbic acid (vitamin C) 500 mg Tablet
500 mg PO DAILY
calcium polycarbophil 625 mg Tablet
625 mg PO BID
docusate sodium 100 mg Capsule
100 mg PO DAILY
vitamin B complex Tablet
1 tab PO DAILY
carbidopa-levodopa 25-100 mg Tablet
1 tab PO QID
coenzyme Q10 [Co Q-10] 100 mg Capsule
100 mg PO BID
rasagiline 1 mg tablet
1 mg PO DAILY
cetirizine 10 mg Tablet
10 mg PO DAILYPRN PRN (Reason: allergy) Qty: 0 0RF
magnesium hydroxide [Milk of Magnesia] 400 mg/5 mL Suspension
30 ml PO DAILY PRN (Reason: constipation)
Rx Instructions:
give on day 4 of no BM
bisacodyl [Dulcolax (bisacodyl)] 10 mg Suppository
10 mg TN DAILY PRN (Reason: constipation)
Rx Instructions:
if MOM ineffective, give on day 5 of no BM
Fleet Enema Extra 19-7 gram/197 mL Enema
197 ml TN ONCE
Rx Instructions:
if dulcolax ineffective, give on day 6 of no BM
tamsulosin 0.4 mg Capsule
0.4 mg PO DAILY Qty: 30 0RF
cephalexin 500 mg capsule
500 mg PO Q12H 6 Days Qty: 22 0RF
Rx Instructions:
through 07/16
Discharge Orders:
Discharge Patient (As Directed); Ordered 07/11/25
Ordered By: Belkis Almanzar
Discharge Date and Time
Discharge Date/Time: 07/11/25 17:57
Print Language: BULGARIAN

Documented by User: Anival Paul MD 07/11/25 22:24
Discharge Summary
Discharge Data
Date of Admission: 07/10/25
Date of Discharge: 07/11/25
Discharge Plan
-
Patient Disposition: [facility]/SNF
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
Condition: Fair
Diet: Regular
Activity: As tolerated
Driving Restrictions: As prior to admission
Bathing Restrictions: None
Referrals:
Román Sorensen MD [Active, Urology]
Fani Duff DO [Family Provider, General]
Additional Discharge Medication Instructions: Finish taking keflex 500mg twice daily (antibiotic for UTI) through 07/16/25.
Do NOT restart taking aspirin or plavix.
Prescriptions:
Continued
quetiapine 25 mg Tablet
25 mg PO HS
atorvastatin 40 mg tablet
40 mg PO HS
zinc acetate 50 mg (zinc) Capsule
50 mg PO DAILY
carbidopa-levodopa 50-200 mg tablet extended release
1 tab PO HS
acetaminophen 500 mg Tablet
500 mg PO BIDPRN PRN (Reason: mild pain)
flaxseed oil 1,000 mg Capsule
1,000 mg PO DAILY
entacapone 200 mg tablet
200 mg PO HS
ascorbic acid (vitamin C) 500 mg Tablet
500 mg PO DAILY
calcium polycarbophil 625 mg Tablet
625 mg PO BID
docusate sodium 100 mg Capsule
100 mg PO DAILY
vitamin B complex Tablet
1 tab PO DAILY
carbidopa-levodopa 25-100 mg Tablet
1 tab PO QID
coenzyme Q10 [Co Q-10] 100 mg Capsule
100 mg PO BID
rasagiline 1 mg tablet
1 mg PO DAILY
cetirizine 10 mg Tablet
10 mg PO DAILYPRN PRN (Reason: allergy) Qty: 0 0RF
magnesium hydroxide [Milk of Magnesia] 400 mg/5 mL Suspension
30 ml PO DAILY PRN (Reason: constipation)
Rx Instructions:
give on day 4 of no BM
bisacodyl [Dulcolax (bisacodyl)] 10 mg Suppository
10 mg TN DAILY PRN (Reason: constipation)
Rx Instructions:
if MOM ineffective, give on day 5 of no BM
Fleet Enema Extra 19-7 gram/197 mL Enema
197 ml TN ONCE
Rx Instructions:
if dulcolax ineffective, give on day 6 of no BM
tamsulosin 0.4 mg Capsule
0.4 mg PO DAILY Qty: 30 0RF
cephalexin 500 mg capsule
500 mg PO Q12H 6 Days Qty: 22 0RF
Rx Instructions:
through 07/16
Discharge Orders:
Discharge Patient (As Directed); Ordered 07/11/25
Ordered By: Belkis Almanzar
Discharge Date and Time
Discharge Date/Time: 07/11/25 17:57
Print Language: BULGARIAN
[2025-07-11 15:54] VITALS: BP 100/44
== END 2025-07-11 17:57 | DRG 699 ==
LOC: 4 WEST ACU 04:53
PROVIDERS: ADMITTING PHYSICIAN Hospitalist; ATTENDING PHYSICIAN Family Medicine; CONSULT PHYSICIAN Specialist; EMERGENCY PHYSICIAN Emergency Medicine; FAMILY PHYSICIAN Family Medicine
DX: N30.41 Irradiation cystitis with hematuria (principal); D62 Acute posthemorrhagic anemia; F02.811 Dementia in other diseases classified elsewhere, unspecified severity, with agitation; F05 Delirium due to known physiological condition; G20.A1 Parkinson's disease without dyskinesia, without mention of fluctuations; E78.00 Pure hypercholesterolemia, unspecified; I10 Essential (primary) hypertension; I25.10 Atherosclerotic heart disease of native coronary artery without angina pectoris; I49.5 Sick sinus syndrome; Y84.2 Radiological procedure and radiotherapy as the cause of abnormal reaction of the patient, or of later complication, without mention of misadventure at the time of the procedure; R33.8 Other retention of urine; B96.20 Unspecified Escherichia coli [E. coli] as the cause of diseases classified elsewhere; Z95.5 Presence of coronary angioplasty implant and graft; Z95.2 Presence of prosthetic heart valve; Z92.3 Personal history of irradiation; Z85.46 Personal history of malignant neoplasm of prostate; Z96.82 Presence of neurostimulator; Z88.2 Allergy status to sulfonamides; Z79.899 Other long term (current) drug therapy
CPT/HCPCS: 36415; 51798; 80048; 80053; 85014; 85018; 85025; 85027; 85610; 85730; 86850; 86900; 86901; 87070; 87086; 96360; 96372; 99285

== ENCOUNTER 2025-07-16 14:47 | Inpatient (IN) | payer MEDICARE, OTHER, SELFPAY ==
[2025-07-16] VITALS (14 sets, daily range): BP systolic 95–158; BP diastolic 46–85; BMI 23.8; BMI 22.9
--- NOTE | 2025-07-16 06:06 | ED.GENMED ---
History of Present Illness
General
Chief Complaint: Catheter/Tube Problem
Source: records and [facility]
Exam Limitations: dementia
Time Seen by Provider: 07/16/25 05:44
History of Present Illness
History of Present Illness:
85-year-old male apparently pulled out his catheter. They tried to pass the catheter with no success at the facility. Catheter three-way was passed here with minimal difficulty passing the prostate. Patient complaining of some discomfort.
Although he states this is not new today
Past History
Past History
ED Past Medical History: CAD, Cancer (Prostate CA), HTN, Hypercholesterolemia, Valvular disease (Aortic stenosis), Other (Parkinson's/dementia with agitation) and Other (Radiation cystitis)
ED Past Surgical History: Cardiac (PTCA with stent to the RCA August 2024, TAVR October 2024, pacemaker) and Urological (July 03, 2025-cystoscopy for clot evacuation, transurethral vaporization of bladder urothelium-extensive.)
Social History
Tobacco: Non-smoker
Alcohol: None
Drug: None
Personal:
Living: [facility]
Family History
Family History: Other (Noncontributory)
Review of Systems
Review of Systems
All Other Systems: Not applicable
Phy Exam
Physical Exam
Physical Exam:
GENERAL: Alert. Rambling speech. However will refocus and answer questions
EYE: Orbits normal.
NECK: Supple
CARDIAC: Regular rate and rhythm without any obvious murmurs.
LUNGS: Clear breath sounds,normal
ABDOMEN: Soft, without focal tenderness or distention
: Three-way catheter in place. Draining relatively clear but a small amount of urine. No bladder distention clinically. Some blood around the catheter at the urethral meatus
NEUROLOGICAL: Alert. Grossly nonfocal
SKIN: Warm and dry, no rash or lesion, no discoloration, skin intact.
MUSCULOSKELETAL: No edema,no deformity.Good color
PSYCH: Somewhat anxious
Course
Orders/Labs/Results
Orders:
Orders
07/16/25 05:11
Restraints - Non Violent As Directed
Justification-Patient:: 2-Protective Intervention
Restraint Type-: Soft Limb-L&R Wrist/4rail
Apply From (date): 07/16/25
Apply from (time): 05:11
Remove (date): 07/17/25
Remove (time): 23:59
07/16/25 05:39
Hernández Placement- Treatment ONCE
Reason for insertion: Chronic Hernández on Admit
Hernández Catheter [Catheter- Indwelling] As Directed
Reason for insertion: Chronic Hernández on Admit
Size: 22
Type: 3 way
07/16/25 06:04
IV Insert/Care/Rem.- Treatment PRN
07/16/25 06:06
US Renal With Bladder Urgent
Comment: bladder not full ok, looking at ureteral jets
Reason For Exam: Evaluate for bladder catheter
07/16/25 06:14
Basic Metabolic Panel Urgent
Complete Blood Count/With Diff Urgent
07/16/25 09:59
Restraints - Non Violent As Directed
Justification-Patient:: 1-Attempts to remove tube
Restraint Type-: Mitts - L&R Hands
Apply From (date): 07/16/25
Apply from (time): 09:59
Remove (date): 07/17/25
Remove (time): 23:59
07/16/25 10:28
Carbidopa/Levodopa [Sinemet 25-100] 1 tablet PO NOW STA
Quetiapine Fumarate [Seroquel] 12.5 mg PO NOW STA
07/16/25 12:32
IV Insert/Care/Rem.- Treatment PRN
07/16/25 12:47
CefTRIAXone [Rocephin] 1,000 mg IV NOW STA
Tranexamic Acid 1000 mg/100 ml [Tranexamic Acid] 1,000 mg in 100 ml IV ONCE
07/16/25 12:59
Type+Screen Urgent
Abnormal Lab Results
07/16/25
06:14
RBC 3.20 L 10^6/uL
(4.70-6.10)
Hgb 9.8 L g/dL
(13.0-18.0)
Hct 30.1 L %
(39.0-52.0)
MCV 94.1 H fL
(80.0-94.0)
MCHC 32.6 L g/dL
(33.0-37.0)
RDW 15.1 H %
(11.5-14.5)
Absolute Neuts (auto) 6.8 H 10^3/uL
(1.4-6.5)
Absolute Lymphs (auto) 0.8 L 10^3/uL
(1.2-3.4)
Neutrophils % 82.4 H %
(42.2-75.2)
Lymphocytes % 9.3 L %
(20.5-51.1)
Sodium 133 L mmol/L
(135-145)
Creatinine 0.5 L mg/dL
(0.7-1.3)
07/16/25 06:14
07/16/25 06:14
Vital Signs
Initial and Last Documented VS:
Initial Vital Signs
BP
126/64
07/16/25 05:13
Last Documented Vital Signs
Temp Pulse Resp BP Pulse Ox
97.8 F 76 16 112/55 96
07/16/25 06:22 07/16/25 07:40 07/16/25 06:22 07/16/25 13:10 07/16/25 13:30
MDM/Problems Addressed
Differential Diagnosis Includes:
Catheter appears to be in place and flushes with clear saline coming out of the three-way catheter. Clinically not distended. However we will check a bladder ultrasound and check hemoglobin. Clinically not an acute infectious issue.
Patient's updated. Has remained medically stable. Hemoglobin stable. White count stable. Balloon in the bladder and no bladder wall distention. Stable for discharge
*Radiology
Radiology exam reviewed: radiology read reviewed (Catheter is in the bladder. No distention.)
*Pulse Oximetry
SaO2: 96
Oxygen Mode of Delivery: Room air
Patient hypoxic: no
*Critical Care Note
Total Time (30-74mins, 75-104mins- exclusive of procedures): Not Applicable
Data Reviewed
Review of Other/Old Records Reveals: Labs, Records and Testing
Update Note
Update Note:
1120... Patient still with significant clots from the urethra. Also ongoing hematuria. Will admit for further care
1230. Still passing clots from the urethra. Also it does not appear that three-way is functioning correctly at this time. His bladder clinically feels distended. Urology notified. Will carefully irrigate....
1250.... Urology requests a dose of ceftriaxone and IV TXA.
ED Attending Note
-
Portions of this chart may have been created with voice recognition software.� Occasional wrong word or��sound alike� substitutions may have occurred due to the inherent limitations of voice recognition software.
Discharge Plan
Departure
Patient Disposition: Admit
Date of Disposition: 07/16/25
Time of Disposition: 07:51
Presentation/result/management discussed w/ accepting MD/DO: urology
Patient with high blood pressure during this ER visit?: Yes
Discharge Problem:
Dislodged Hernández catheter, Hematuria
Instructions: Blood in the urine (hematuria) in adults, How to Care for Your Hernández Catheter, Male, BLOOD PRESSURE
Prescriptions:
No Action
quetiapine 25 mg Tablet
25 mg PO HS
atorvastatin 40 mg tablet
40 mg PO HS
zinc acetate 50 mg (zinc) Capsule
50 mg PO DAILY
carbidopa-levodopa 50-200 mg tablet extended release
1 tab PO HS
acetaminophen 500 mg Tablet
500 mg PO BIDPRN PRN (Reason: mild pain)
flaxseed oil 1,000 mg Capsule
1,000 mg PO DAILY
entacapone 200 mg tablet
200 mg PO HS
ascorbic acid (vitamin C) 500 mg Tablet
500 mg PO DAILY
calcium polycarbophil 625 mg Tablet
625 mg PO BID
docusate sodium 100 mg Capsule
100 mg PO DAILY
vitamin B complex Tablet
1 tab PO DAILY
carbidopa-levodopa 25-100 mg Tablet
1 tab PO QID
coenzyme Q10 [Co Q-10] 100 mg Capsule
100 mg PO BID
rasagiline 1 mg tablet
1 mg PO DAILY
cetirizine 10 mg Tablet
10 mg PO DAILYPRN PRN (Reason: allergy) Qty: 0 0RF
magnesium hydroxide [Milk of Magnesia] 400 mg/5 mL Suspension
30 ml PO DAILY PRN (Reason: constipation)
Rx Instructions:
give on day 4 of no BM
bisacodyl [Dulcolax (bisacodyl)] 10 mg Suppository
10 mg AL DAILY PRN (Reason: constipation)
Rx Instructions:
if MOM ineffective, give on day 5 of no BM
Fleet Enema Extra 19-7 gram/197 mL Enema
197 ml AL ONCE
Rx Instructions:
if dulcolax ineffective, give on day 6 of no BM
tamsulosin 0.4 mg Capsule
0.4 mg PO DAILY Qty: 30 0RF
cephalexin 500 mg capsule
500 mg PO Q12H 6 Days Qty: 22 0RF
Rx Instructions:
through 07/16
lorazepam 0.5 mg Tablet
0.5 mg PO BID PRN (Reason: anxiety, agitation, restlessness)
Referrals:
UNKNOWN - PT DOES,NOT KNOW [Family Provider]
Activity Restrictions/Additional Instructions:
Continue your post recent admission treatment including follow-up with primary care and urology
Interventions
Interventions:
*Risk Screen - Suicide Last Done: 07/16/25 05:20
*General Assessment Last Done: 07/16/25 05:20
*Neglect/Abuse Screening Last Done: 07/16/25 05:20
*ED- Fall Risk Assessment Last Done: 07/16/25 05:20
*ED COVID-19 Vaccine History Last Done: 07/16/25 05:20
IQ-Xdosex-Bwpgaxgmuc Assessment Last Done: 07/16/25 05:20
ED-Male Genitourinary Assessment Last Done: 07/16/25 05:20
Discharge Date and Time
Print Language: SETSWANA
[2025-07-16 06:39] LABS: Hematocrit 30.1 % (39.0-52.0); Hemoglobin 9.8 g/dL (13.0-18.0); Mean Corp Hgb Conc. 32.6 g/dL (33.0-37.0); Mean Corpuscular Volume 94.1 fL (80.0-94.0); Nucleated Red Blood Cells % 0 % (-); Platelet Count 285 10^3/uL (130-400); Red Cell Dist. Width 15.1 % (11.5-14.5)
[2025-07-16 06:58] LABS: Blood Urea Nitrogen 17 mg/dl (9-20); Calcium 9.4 mg/dl (8.4-10.2); Carbon Dioxide 28 mmol/L (22-30); Chloride 103 mmol/L (98-107); Estimated Creatinine Clearance 90 ml/min; Glucose 96 mg/dl (70-99); Potassium 4.0 mmol/L (3.5-5.1); Sodium 133 mmol/L (135-145); eGFR > 60.00
[2025-07-16] MEDS: SEROQUEL 12.5 MG PO (10:34)
[2025-07-16] MEDS: SINEMET 25-100 1 TABLET PO ×3 (10:39→20:20)
--- NOTE | 2025-07-16 13:01 | HPS.HSE ---
Addendum entered and electronically signed by Belkis Almanzar MD, Resident 07/22/25 15:57:
Home medications:
- Acetaminophen 500 mg p.o. twice daily as needed
- Ascorbic acid 500 mg p.o. daily
- Aspirin 81 mg p.o. daily
- Atorvastatin 40 mg p.o. at bedtime
- Bisacodyl 10 mg daily as needed
- Calcium polycarbophil 625 mg p.o. twice daily
- Carbidopa�levodopa 1 tab p.o. at bedtime
- Carbidopa�levodopa 1 tab p.o. 4 times daily
- Cetirizine 10 mg p.o. as needed
- Coenzyme Q10 100 mg p.o. twice daily
- Docusate sodium 100 mL p.o. daily
- Entacapone 200 mg p.o. at bedtime
- Flaxseed oil thousand mg p.o. daily
- Lorazepam 0.5 mg p.o. twice daily as needed
- Magnesium hydroxide 30 mL p.o. daily as needed
- Quetiapine 25 mg p.o. at bedtime
- Rasagiline 1 mg p.o. daily
- Tamsulosin 0.4 mg p.o. daily
- Vitamin B complex 1 tab p.o. daily
- Zinc acetate 50 mg p.o. daily
Addendum entered and electronically signed by Ray Baker DO 07/16/25 14:57:
85-year-old male with CAD s/p PCI (08/2024), s/p TAVR, prostate cancer s/p XRT C/B radiation cystitis.........
Original Note:
Family Physician
-
Family Physician: Fani Duff DO
Chief Complaint
-
displaced Linn, traumatic hematuria
History of Present Illness
Michael Ramirez is an 85yo M with a pmh of ASCVD s/p stent, s/p TAVR, Parkinson's dementia, prostate cancer s/p radiation c/b radiation cystitis, recurrent hematuria w clots requiring CBI (last discharged 07/11), & recent ecoli UTI who presents from
SNF after pulling out linn catheter, w catheter placed in ED now with hematuria/clots.
Pt was recently discharged from on 07/11 after the following course:
Gross Hematuria in s/o radiation cystitis - s/p two recent admissions to (05/29 and 06/29) for gross hematuria requiring CBI. On admission 06/29-, required 5 units PRBCs. On 07/03, pt was taken for cystoscopy with clot evacuation and transurethral
vaporization of bladder urothelium�extensive cauterization. Plavix was permanently stopped at that time; ASA held and unclear if restarted on 07/06. On 07/10- admission, pt presented w worsening agitation and gross hematuria. Hgb 9.1 on admission.
Per urology, rebleeds can occur ~1 week s/p fulguration - likely etiology of current bleed +/- irritation from linn catheter & resolving e coli UTI (being trt w 14 day course abx). Pt treated w CBI & ceftriaxone and urine cleared of gross
hematuria, discharged to [facility] linn catheter and keflex 500mg bid to finish through 07/16. Planned to continue holding aspirin and Plavix indefinitely. UA from 07/10 returned negative.
Today, pt presents after pulling out linn catheter at [facility] staff unable to replace the catheter. In ED, three-way catheter was placed. Urine initially clear, followed by significant clots from urethra & hematuria 2/2 trauma. Urology curbside
- CBI started, given 1000mg ceftriaxone, given 1000mg tranexamic acid. On admission, AVSS, Hgb 9.8, Cr at baseline 0.5. Renal US (07/16): Urinary bladder catheter in position in the lumen of the urinary bladder; no sonographic evidence for
hydronephrosis in either kidney.
Pt calm on exam this afternoon, saying shouldn't have pulled out catheter. Linn bag red w hematuria, no clots visible.
Medical History
Past Medical History
Past Medical History: Reports CAD (stent <1 yr prior), Cancer (prostate cancer s/p radiation), Hypercholesterolemia, Valvular Disease ( s/p TAVR) and Psychiatric (Parkinson's dementia)
Past Surgical History: Reports Other (stent, TAVR, pacemaker)
Social History
Unable to obtain full social history at this time due to: Dementia
Living: [facility] ([facility])
Family History
Family History: Not pertinent
Allergies / Home Medications
Allergies reflects when Allergies were last updated in [facility].
Home Medications with original date entered in [facility]
Allergy/Medication List:
sulfa
Review of Systems
-
Unable to obtain full review of systems at this time due to: Dementia
History Source: Patient
Constitutional: Reports See HPI
: Reports See HPI
Neurological: Reports See HPI
Psych: Reports See HPI
Physical Exam
Vital Signs
Vital Signs
Temp Pulse Resp BP Pulse Ox
97.8 F 76 16 132/73 97
07/16/25 06:22 07/16/25 07:40 07/16/25 06:22 07/16/25 12:00 07/16/25 11:30
Physical Exam
General: Conversant (conversant but with stilted speech in s/o masked facies/parkinson's) and Other (frail/thin appearing)
HEENT: NormoCephalic, Anicteric and Atraumatic
Respiratory: Non Labored Respirations
Cardiac: Other (palpable peripheral pulses bilat radial & dorsalis pedis)
GI: Non Distended
Genito-urinary: Other (catheter in place with bright pink/light red urine filling bag )
Neuro: Awake and Alert
Psych: Other (masked facies)
Laboratory Results
-
07/16/25 06:14
07/16/25 06:14
Data Reviewed
-
Critical Care Time (in minutes): 35
Ultrasound: Report Reviewed by me
Lab Data: Labs Reviewed by me
Impression/Plan
-
Michael Ramirez is an 85yo M with a pmh of ASCVD s/p stent, s/p TAVR, Parkinson's dementia, prostate cancer s/p radiation c/b radiation cystitis, recurrent hematuria w clots requiring CBI (last discharged 07/11), & recent ecoli UTI who presents from
[facility] after pulling out linn catheter, w catheter placed in ED now with hematuria/clots.
#Hematuria in s/o traumatic catheter removal
Pt with hematuria & clots after catheter reinsertion following traumatic removal at [facility]. Bleeding likely 2/2 prostate trauma during removal. Hgb & BP stable thus far, no c/f acute blood loss anemia. E coli UTI likely resolved & not a contributing
factor (07/16 was last day of scheduled abx, UA 07/10 negative).
-CBI overnight, monitor for clearance of blood
-Monitor H&H q8hr, transfuse if hgb<7
-Per urology, continue empiric IV ceftriaxone 1000mg daily while inpt given ongoing instrumentation, cath removal at [facility] (07/16-)
-Follow repeat urinalysis
-Continue holding aspirin during admission, to curbside cards re: reinitiation outpatient given cardiac stent placement <1yr prior
#Chronic issues:
#Parkinson's dementia - continue psychotropic med regimen (carbidopa/levodopa, entacapone, quetiapine, rasagiline) & PRN quetiapine 12.5mg q6h
#ASCVD s/p stent; s/p TAVR; pacemaker - holding ASA inpt; plavix discontinued indefinitely
#HLD - continue atorvastatin 40mg
#Global
-DVT ppx: SCDs
-Diet: cholesterol lowering
-Code: full
-Dispo: lives at [place]; per pt, was talking about alternative SNF - to touch base w case mgmt
[2025-07-16] MEDS: ROCEPHIN 1000 MG IV (13:02)
[2025-07-16] MEDS: TRANEXAMIC ACID 100 IV (13:02)
[2025-07-16] MEDS: MIRALAX 17 GRAMS PO (15:54)
--- NOTE | 2025-07-16 16:13 | PTCARENOTE ---
Patient arrived to unit around 1500 this shift. He was transferred from stretcher to bed. Pt AAOx3, but confused and forgetful at times. Pts arrived at bedside to answer admission questions. Pt oriented to room and staff. All needs met at this
time. Plan of care ongoing.
[2025-07-16] MEDS: LIPITOR 40 MG PO (20:19)
[2025-07-16] MEDS: COMTAN 200 MG PO (20:19)
[2025-07-16] MEDS: TYLENOL 500 MG PO (20:20)
[2025-07-16] MEDS: ATIVAN 0.5 MG PO (20:20)
[2025-07-16] MEDS: SEROQUEL 25 MG PO (20:20)
[2025-07-16] MEDS: SINEMET CR 50/200 (EXTENDED RELEASE) 1 TABLET PO (20:20)
[2025-07-16 21:04] LABS: Hematocrit 26.7 % (39.0-52.0); Hemoglobin 9.0 g/dL (13.0-18.0)
[2025-07-16 21:05] LABS: Urine Character Clear (Clear)
[2025-07-16 21:25] LABS: Urine Red Blood Cell 50-60 /HPF (0-2); Urine Squamous Cell 0-2 /LPF (Few); Urine White Cell 0-2 /HPF (0-5)
[2025-07-17 00:53] LABS: Hematocrit 26.3 % (39.0-52.0); Hemoglobin 8.7 g/dL (13.0-18.0)
[2025-07-17 05:43] LABS: Hematocrit 29.5 % (39.0-52.0); Hemoglobin 9.3 g/dL (13.0-18.0); Mean Corp Hgb Conc. 31.5 g/dL (33.0-37.0); Mean Corpuscular Volume 95.2 fL (80.0-94.0); Nucleated Red Blood Cells % 0 % (-); Platelet Count 288 10^3/uL (130-400); Red Cell Dist. Width 15.2 % (11.5-14.5)
[2025-07-17 06:09] LABS: ALT (SGPT) < 10 U/L (0-50); AST (SGOT) 27 U/L (17-59); Albumin 3.5 g/dl (3.5-5.0); Alkaline Phosphatase 93 U/L (38-126); Blood Urea Nitrogen 17 mg/dl (9-20); Calcium 8.7 mg/dl (8.4-10.2); Carbon Dioxide 29 mmol/L (22-30); Chloride 104 mmol/L (98-107); Estimated Creatinine Clearance 90 ml/min; Glucose 97 mg/dl (70-99); Potassium 4.4 mmol/L (3.5-5.1); Sodium 136 mmol/L (135-145); Total Protein 6.0 g/dl (6.3-8.2); eGFR > 60.00
[2025-07-17 07:00] VITALS: BP 126/59
--- NOTE | 2025-07-17 07:19 | W.PN.HOSP.TC ---
Addendum entered and electronically signed by Ray Baker DO 07/17/25 14:04:
CDI: Acute blood loss anemia, bleeding resolved, continue to trend CBC
Original Note:
Today's Communication/Plan
-
-Wean CBI as tolerated today
-Plan for clamp trial after re-evaluation this afternoon
-Maintain Linn catheter to drainage (balloon over-inflated)
-Continue IV ceftriaxone 1000mg daily while inpt given ongoing instrumentation, traumatic cath removal at SNF/ED replacement (07/16-)
-Continue holding aspirin during admission - considering trial restart tmrw am and watch prior to discharge, given cardiac stent placement <1yr prior
-Urology following, appreciate recs
-Plan for discharge tmrw
Assessment / Plan
Assessment / Plan
Michael Ramirez is an 85yo M with a pmh of ASCVD s/p stent, s/p TAVR, Parkinson's dementia, prostate cancer s/p radiation c/b radiation cystitis, recurrent hematuria w clots requiring CBI (last discharged 07/11), & recent ecoli UTI who presents from
[facility] after pulling out linn catheter, w catheter replaced now being monitored for traumatic hematuria.
#Hematuria in s/o traumatic catheter removal
Pt with hematuria & clots after catheter reinsertion following traumatic removal at [facility]. Bleeding likely 2/2 prostate trauma during removal. E coli UTI likely resolved & not a contributing factor (07/16 was last day of previously scheduled abx, UA
07/10 negative). Hgb uptrending this am (8.7>9.3). BP avg ranging 120s/60s. UA (07/16) with no growth. Pt noted clots overnight but urine fully clear this am.
-Wean CBI as tolerated today
-Plan for clamp trial after re-evaluation this afternoon
-Maintain Linn catheter to drainage (balloon over-inflated)
-Continue IV ceftriaxone 1000mg daily while inpt given ongoing instrumentation, traumatic cath removal at SNF/ED replacement (9/3-)
-Monitor H&H q8hr, transfuse if hgb<7
-Continue holding aspirin during admission - considering trial restart tmrw am and watch prior to discharge, given cardiac stent placement <1yr prior
-Urology following, appreciate recs
#Chronic issues:
#Parkinson's dementia - continue psychotropic med regimen (carbidopa/levodopa, entacapone, quetiapine, rasagiline) & PRN quetiapine 12.5mg q6h
#ASCVD s/p stent; s/p TAVR; pacemaker - holding ASA inpt; plavix discontinued indefinitely
#HLD - continue atorvastatin 40mg
#Global
-DVT ppx: SCDs
-Diet: cholesterol lowering
-Code: full
-Dispo: to alternative SNF (vs [facility] [employer]), case mgmt in touch w ; tmrw pending clearance of hematuria & positive clamp trial
Anticipated Discharge: Within 24 hours
Subjective/Interval History
-
Date of Service: July 17, 2025
Patient in better spirits today, talkative/conversant, pleasant. Denies any abdominal, suprapubic pain. Had a bowel movement last night which relieved some abdominal discomfort he has been having. Notes that nurse had to flush catheter overnight
due to clots. States that he would feel more comfortable staying 1 more night given his history of recurrent hematuria and readmissions.
Objective Data
-
Labs:
Laboratory Results
07/16/25 07/17/25 07/17/25
20:51 00:40 05:22
WBC 6.3
Hgb 9.0 L 8.7 L 9.3 L
Hct 26.7 L 26.3 L 29.5 L
Plt Count 288
Sodium 136
Potassium 4.4
Chloride 104
Carbon Dioxide 29
BUN 17
Creatinine 0.6 L
Glucose 97
Calcium 8.7
Total Bilirubin 0.6
AST 27
ALT < 10
Alkaline Phosphatase 93
Vital Signs:
Vital Signs
Temp Pulse Resp BP Pulse Ox
97.7 F 79 20 95/46 97
07/16/25 23:12 07/16/25 23:12 07/16/25 23:12 07/16/25 23:12 07/16/25 23:12
I&O
07/16/25 07/17/25 07/18/25
06:59 06:59 06:59
Intake Total 480 / 480
Output Total 3850 / 3850
Balance -3850 / -3850 480 / 480
Review of Systems
-
History Source: Patient
Constitutional: Reports No Symptoms
Abdomen/GI: Reports No Symptoms
Genitourinary: Reports Other (hematuria, clearing; denies suprapubic pain or pain at linn insertion site)
Physical Exam
-
General: No Apparent Distress and Conversant
HEENT: Normocephalic, Atraumatic and Anicteric
Respiratory: Non Labored Respirations
Cardiac: Regular Rhythm
GI: Soft, Nontender and Nondistended
Genito-urinary: Linn, Continuous Bladder Irrigation and Other (Bag of urine yellow, clear, without evidence of blood)
Skin: Warm and Dry
Neuro: AO x 3
Psych: Calm
Data Reviewed
-
Total Time Spent with Patient (in minutes): 15
Critical Care Time (in minutes): 30
Labs: Labs Reviewed by me and Discussed with Patient
--- NOTE | 2025-07-17 07:36 | W.PN.UPDATE ---
Update Note
Progress Note Update
85M presenting to [facility] ED from memory care facility after recent hospitalization 2 weeks prior for rapid decompression hematuria w/ clot retention and subsequent anemia.
Patient w/ baseline dementia and Parkinson's recently complicated by agitation and delirium (inpatient) traumatically removed catheter @[facility] in prior 24 hrs.
Recently completed 14 day abx course for E. Coli UTI (06/29/25 UCx).
07/03/25: s/p cystoscopy, clot evacuation, fulguration of bladder urothelium => NO bladder tumors noted, however global radiation cystitis seen.
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
H/H stable
Cr WNL
UCx pending
Plan:
- Urine outflow clear - wean CBI as tolerated
- Given prior history, plan for clamp trial after re-evaluation this afternoon
- Maintain Hernández catheter to drainage (balloon over-inflated)
- Continue IV Ceftriaxone given traumatic catheter removal and replacement in ED
[2025-07-17] MEDS: FLOMAX 0.4 MG PO (08:26)
[2025-07-17] MEDS: COLACE 100 MG PO (08:26)
[2025-07-17] MEDS: B COMPLEX w/VITAMIN C 1 CAPLET PO (08:26)
[2025-07-17] MEDS: SINEMET 25-100 1 TABLET PO ×4 (08:26→21:25)
[2025-07-17] MEDS: ATIVAN 0.5 MG PO (11:41)
[2025-07-17] MEDS: STERILE WATER FOR INJECTION 10 ML IV (11:42)
[2025-07-17] MEDS: ROCEPHIN 1000 MG IV (11:42)
--- NOTE | 2025-07-17 13:44 | PN.CDI ---
CDI
- -
CDI:
Physician Documentation Request
Admit Date: 07/16/25 14:47
Dear Doctor Jenelle,
Clinical Indicators:
Patient admitted gross hematuria due to traumatic catheter removal.
07/16 H & P, '...presents from SNF after pulling out linn catheter, w catheter placed in ED now with hematuria/clots.'
07/16 Tranexamic acid IV x 1.
Hgb/Hct trend:
07/16/25 07/16/25 07/17/25
06:14 20:51 00:40
Hgb 9.8 L 9.0 L 8.7 L
Hct 30.1 L 26.7 L 26.3 L
07/17/25
05:22
Hgb 9.3 L
Hct 29.5 L
Based on the above, could you clarify in the progress notes, the appropriate diagnosis, if significant, that supports the above abnormalities and additional evaluation, monitoring and/or treatment rendered:
Anemia, due to acute blood loss
Anemia, other (please specify type)
Abnormal lab values, clinically insignificant
Other, please specify
Use of terms such as suspected, likely, concern for, or probable (associated with a specific diagnosis that is being evaluated, monitored, or treated as if it exists) are acceptable and can be coded in the inpatient setting, when documented at the
time of discharge.
Thank you,
DANIEL Guerra RN
CDI Specialist
available via tiger text
Please use your independent medical judgment in providing your response.
[2025-07-17 14:57] VITALS: BP 119/84
[2025-07-17 15:00] VITALS: BP 102/47
--- NOTE | 2025-07-17 16:03 | CM ---
Alert awake oriented patient who lives with Rosibel in a one story home with 2 steps to enter. He is assisted in all ADLs He has a cane.
[facility] hx, [facility]
Pharmacy [place]
PCP Isiah Russell
PLAN DC planning on going
[2025-07-17] MEDS: SEROQUEL 25 MG PO (21:24)
[2025-07-17] MEDS: SINEMET CR 50/200 (EXTENDED RELEASE) 1 TABLET PO (21:24)
[2025-07-17] MEDS: LIPITOR 40 MG PO (21:25)
[2025-07-17] MEDS: COMTAN 200 MG PO (21:25)
--- NOTE | 2025-07-17 23:53 | PTCARENOTE ---
3000 mL CBI bag completed at this time and irrigation clamped per MD order. Hernández continues to drain clear, yellow urine.
[2025-07-18 01:33] VITALS: BP 124/62
[2025-07-18 05:38] LABS: Hematocrit 25.2 % (39.0-52.0); Hemoglobin 8.3 g/dL (13.0-18.0); Mean Corp Hgb Conc. 32.9 g/dL (33.0-37.0); Mean Corpuscular Volume 95.1 fL (80.0-94.0); Nucleated Red Blood Cells % 0 % (-); Platelet Count 257 10^3/uL (130-400); Red Cell Dist. Width 15.2 % (11.5-14.5)
[2025-07-18 06:12] LABS: ALT (SGPT) < 10 U/L (0-50); AST (SGOT) 23 U/L (17-59); Albumin 3.1 g/dl (3.5-5.0); Alkaline Phosphatase 89 U/L (38-126); Blood Urea Nitrogen 19 mg/dl (9-20); Calcium 8.3 mg/dl (8.4-10.2); Carbon Dioxide 28 mmol/L (22-30); Chloride 106 mmol/L (98-107); Estimated Creatinine Clearance 90 ml/min; Glucose 116 mg/dl (70-99); Potassium 4.1 mmol/L (3.5-5.1); Sodium 136 mmol/L (135-145); Total Protein 5.6 g/dl (6.3-8.2); eGFR > 60.00
[2025-07-18 07:00] VITALS: BP 110/53
--- NOTE | 2025-07-18 07:30 | W.PN.HOSP.TC ---
Today's Communication/Plan
-
-Keep CBI clamped this am, monitor urine through morning
-Follow H&H and appearance of urine today, if hgb continues to trend down and/or gross hematuria, hold on discharge for further monitoring
-250cc IVF bolus today
-Maintain Linn catheter to drainage (balloon over-inflated)
-Continue IV ceftriaxone 1000mg daily while inpt given ongoing instrumentation, traumatic cath removal at [facility]/ED replacement (07/16-)
-Transfuse if hgb<7
-Continue holding aspirin during admission - per cards/urology discussion, planning to restart aspirin on 07/20 after discharge
-Urology following, appreciate recs
Assessment / Plan
Assessment / Plan
Michael Ramirez is an 85yo M with a pmh of ASCVD s/p stent, s/p TAVR, Parkinson's dementia, prostate cancer s/p radiation c/b radiation cystitis, recurrent hematuria w clots requiring CBI (last discharged 07/11), & recent ecoli UTI who presents from
[facility] after pulling out linn catheter, w catheter replaced now being monitored for traumatic hematuria, improved s/p CBI.
#Hematuria in s/o traumatic catheter removal, improved
Pt with hematuria & clots after catheter reinsertion following traumatic removal at [facility]. Bleeding likely 2/2 prostate trauma during removal. E coli UTI likely resolved & not a contributing factor (07/16 was last day of previously scheduled abx, UA
07/10 negative). UA (07/16) with no growth. Hgb downtrended this am (8.7>9.3>8.3). AVSS. Urine clear during the day yesterday. Clamp trial last night at midnight - urine dark yellow to slightly blood-tinged this am without signs of clots. Pt endorses
feeling dehydrated.
-Keep CBI clamped this am, monitor urine through morning
-Follow H&H and appearance of urine today, if hgb continues to trend down and/or gross hematuria, hold on discharge for further monitoring
-250cc IVF bolus today
-Maintain Linn catheter to drainage (balloon over-inflated)
-Continue IV ceftriaxone 1000mg daily while inpt given ongoing instrumentation, traumatic cath removal at SNF/ED replacement (07/16-)
-Transfuse if hgb<7
-Continue holding aspirin during admission - per cards/urology discussion, planning to restart aspirin on 07/20 after discharge
-Urology following, appreciate recs
#Chronic issues:
#Parkinson's dementia - continue psychotropic med regimen (carbidopa/levodopa, entacapone, quetiapine, rasagiline) & PRN quetiapine 12.5mg q6h
#ASCVD s/p stent; s/p TAVR; pacemaker - holding ASA inpt; plavix discontinued indefinitely
#HLD - continue atorvastatin 40mg
#Global
-DVT ppx: SCDs
-Diet: cholesterol lowering
-Code: full
-Dispo: to alternative SNF (vs [facility]), case mgmt in touch w ; likely tomorrow, pending finding SNF & visiting PT
Anticipated Discharge: Today
Subjective/Interval History
-
Date of Service: July 18, 2025
Pt doing well this am. States that he feels dehydrated but hasn't been drinking much water/is always dehydrated. Liked having PT yesterday and would like to have PT outpatient after discharge, as well.
Objective Data
-
Labs:
Laboratory Results
07/18/25
05:28
WBC 6.7
Hgb 8.3 L
Hct 25.2 L
Plt Count 257
Sodium 136
Potassium 4.1
Chloride 106
Carbon Dioxide 28
BUN 19
Creatinine 0.5 L
Glucose 116 H
Calcium 8.3 L
Total Bilirubin 0.3
AST 23
ALT < 10
Alkaline Phosphatase 89
Vital Signs:
Vital Signs
Temp Pulse Resp BP Pulse Ox
98 F 88 16 124/62 98
07/18/25 01:33 07/18/25 01:33 07/18/25 01:33 07/18/25 01:33 07/18/25 01:33
I&O
07/17/25 07/18/25 07/19/25
06:59 06:59 06:59
Intake Total 1740 / 1740
Output Total 4300 / 4300 2350 / 2350
Balance -4300 / -4300 -610 / -610
Review of Systems
-
History Source: Patient
Constitutional: Reports No Symptoms
EENT: Reports Other (dry mouth)
Abdomen/GI: Reports No Symptoms
Genitourinary: Reports No Symptoms
Physical Exam
-
General: Well Developed and Conversant
HEENT: Normocephalic, Atraumatic and Anicteric
Respiratory: Non Labored Respirations
Cardiac: Regular Rhythm
GI: Nondistended
Genito-urinary: Linn and Other (linn in place; CBI clamped; bag with very dark yellow urine)
Neuro: Awake, Alert and Oriented
Psych: Calm
Data Reviewed
-
Total Time Spent with Patient (in minutes): 15
Critical Care Time (in minutes): 30
Labs: Labs Reviewed by me
[2025-07-18] MEDS: SINEMET 25-100 1 TABLET PO ×4 (08:35→22:09)
[2025-07-18] MEDS: COLACE 100 MG PO (08:35)
[2025-07-18] MEDS: FLOMAX 0.4 MG PO (08:35)
[2025-07-18] MEDS: B COMPLEX w/VITAMIN C 1 CAPLET PO (08:35)
[2025-07-18 10:55] VITALS: BP 125/65; BP 131/77
--- NOTE | 2025-07-18 10:57 | CM ---
PT indicated SNF .
Requested OT to see pt.
Spoke with reviewed PT dayna . She requested [facility] or [facility].
[facility] she said she will check referral in care port and call back.
Referral for [facility] placed.
PLAN To SNF Checking which SNF can accept
[2025-07-18] MEDS: STERILE WATER FOR INJECTION 10 ML IV (11:03)
[2025-07-18] MEDS: ROCEPHIN 1000 MG IV (11:03)
--- NOTE | 2025-07-18 11:08 | W.PN.URO.CBU ---
Addendum entered and electronically signed by Gregorio Yates MD 07/18/25 11:12:
Hold aspirin - resume Sun 07/20 if urine remains clear @[facility]
Original Note:
Today's Communication / Plan
-
Discharge home w/ 3-way catheter in place (balloon is over-inflated for security)
F/U in office in 4 weeks for catheter change
DO NOT remove catheter for voiding trial - patient has recurrent urinary retention and will likely require chronic indwelling catheter
Recommend total 7 day course of PO abx given recent E. Coli cUTI, traumatic cath removal, recent urethral instrumentation
Assessment / Plan
-
Traumatic self-removal of indwelling catheter
Prostatic and urethral bleeding (resolved)
H/o hematuria with clot retention
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
H/o DAPT (off Plavix permanently)
07/03: s/p cystoscopy, clot evacuation, extensive fulguration of urothelium (radiation cystitis, inflammatory changes)
Diagnosis
-
Date of Service: July 18, 2025
-
Patient Diagnosis:
Traumatic self-removal of indwelling catheter
Prostatic and urethral bleeding (resolved)
H/o hematuria with clot retention
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
H/o DAPT (off Plavix permanently)
Subjective
-
CBI clamped @[place].
Urine dark yellow w/o clots in outflow.
Objective
-
Vital Signs
Temp Pulse Resp BP Pulse Ox
97.6 F 74 18 110/53 98
07/18/25 07:00 07/18/25 07:00 07/18/25 07:00 07/18/25 07:00 07/18/25 07:00
Intake and Output
07/17/25 07/18/25 07/19/25
06:59 06:59 06:59
Intake Total 1739 / 1739
Output Total 4300 / 4300 2350 / 2350
Balance -4300 / -4300 -610 / -610
Intake:
Oral fluids 1739 / 1739
Output:
Urine, Hernández 900 / 900 550 / 550
Urine, Voided 100 / 100
True Urine Output from CBI 3300 / 3300 1800 / 1800
Laboratory Results
07/18/25 05:28
07/18/25 05:28
Physical Exam
-
General - well developed, well nourished, no acute distress
Abdomen - soft, non-tender
- 3-way catheter w/ clear UOP
Skin - warm & dry with no rash
Psych - pleasantly demented
Extremities - no clubbing, no cyanosis, no edema
Counseling
-
D/w Hospitalist.
[2025-07-18] MEDS: NSS 250 IV (11:54)
[2025-07-18 12:01] LABS: Hematocrit 28.2 % (39.0-52.0); Hemoglobin 9.0 g/dL (13.0-18.0)
[2025-07-18] MEDS: ATIVAN 0.5 MG PO ×2 (12:28→21:16)
--- NOTE | 2025-07-18 13:59 | CM ---
Addendum entered by Zahida Ardon RN 07/18/25 16:33:
Ambulance set up for 1 pm 07/19/25.
Addendum entered by Zahida Ardon RN 07/18/25 16:19:
Spoke with she agrees with plan for tomorrow to [facility] via ambulance
IMM reviewed and signed by .
PLAN To [facility]
Original Note:
Spoke with Anuja at [facility] and Suzette at [email or web address] .
Suzette at [facility] offered bed for tomorrow .
Pt has Hernández.
Spoke with Susannah she is in agreement with [facility].
PT OT indicated SNF.
[facility] Monday
[address]
[place] [address]
report [phone] ext [phone]
fax [phone]
Call Suzette [phone] will arrival time Sat
PLAn To [facility] 07/19/25
[2025-07-18 15:00] VITALS: BP 126/62
--- NOTE | 2025-07-18 16:05 | W.PN.UPDATE ---
Update Note
Progress Note Update
RN shared photo of linn bag with dark red blood. Hgb had trended up this afternoon from 8.3>9. Per urology, looks more like old blood products & lysing clots rather than new bleeding. Restarting CBI now. Will plan for another clamp trial at
midnight. Eval tmrw morning by urology to give clearance for discharge w linn tmrw.
[2025-07-18] MEDS: TYLENOL 500 MG PO (21:15)
[2025-07-18] MEDS: COMTAN 200 MG PO (22:08)
[2025-07-18] MEDS: LIPITOR 40 MG PO (22:09)
[2025-07-18] MEDS: SEROQUEL 25 MG PO (22:09)
[2025-07-18] MEDS: SINEMET CR 50/200 (EXTENDED RELEASE) 1 TABLET PO (22:09)
[2025-07-18 23:09] VITALS: BP 118/62
[2025-07-19 02:50] VITALS: BP 111/72
--- NOTE | 2025-07-19 03:09 | PTCARENOTE ---
CBI stopped at midnight, per MD order. During CBI, clear/yellow urine draining to drainage bag. Pt was asleep and minimal yellow/katty urine output since CBI clamped. At approx 0220, pt found to be wide eyed, confused, and IV had been removed by
patient. Pt not interacting with staff or answering questions but initially mumbling and saying 'pain' while attempting to touch penis/linn. B/L mitts placed to prevent catheter from being dislodged. Pt continued to rub penis while making
inappropriate comments, continued to be confused and not answering staff. B/L wrist restraints placed to prevent linn catheter from being dislodged. Bladder scan done with no urinary retention noted and vitals remain stable. ACCOUNT DEVELOPMENT ASSOCIATE made aware.
Linn irrigated, per ACCOUNT DEVELOPMENT ASSOCIATE request, and no clots noted. ACCOUNT DEVELOPMENT ASSOCIATE at bedside to assess patient and irrigate linn. Pt with one episode of emesis during this time. ACCOUNT DEVELOPMENT ASSOCIATE had placed STAT order for Ativan and Pyridium. Pt fell asleep prior to pharmacy verifying
medications and held at this time.
[2025-07-19] MEDS: ATIVAN 0.5 MG PO ×2 (03:35→07:54)
--- NOTE | 2025-07-19 03:40 | PTCARENOTE ---
Pt mumbling with eyes closed. This RN at bedside to give ordered stat meds. Pt was able to answer questions; stated his name/birthday, place, and month/year. Meds administered without issues. Pt intermittently tearful and talking to self.
Lights dimmed, bed in lowest position and safety measures in place.
--- NOTE | 2025-07-19 03:47 | W.PN.UPDATE ---
Update Note
Progress Note Update
Notified by RN patient restless and pulling at linn, requiring nonviolent restraints. Asked RN to bladder scan and to irrigate linn for possible spasm/retention. Upon visit, patient confused, appears uncomfortable restless. Patient's Linn
irrigated with saline, small clots came out. Rx Pyridium and 0.5mg PO ativan. Per RN pt fell asleep before pharmacy verified the order, not needing the meds at this time.
[2025-07-19 05:54] LABS: Hematocrit 26.3 % (39.0-52.0); Hemoglobin 8.6 g/dL (13.0-18.0); Mean Corp Hgb Conc. 32.7 g/dL (33.0-37.0); Mean Corpuscular Volume 93.6 fL (80.0-94.0); Nucleated Red Blood Cells % 0 % (-); Platelet Count 249 10^3/uL (130-400); Red Cell Dist. Width 14.9 % (11.5-14.5)
[2025-07-19 06:16] LABS: ALT (SGPT) < 10 U/L (0-50); AST (SGOT) 23 U/L (17-59); Albumin 3.2 g/dl (3.5-5.0); Alkaline Phosphatase 87 U/L (38-126); Blood Urea Nitrogen 16 mg/dl (9-20); Calcium 8.9 mg/dl (8.4-10.2); Carbon Dioxide 29 mmol/L (22-30); Chloride 106 mmol/L (98-107); Estimated Creatinine Clearance 90 ml/min; Glucose 106 mg/dl (70-99); Potassium 4.1 mmol/L (3.5-5.1); Sodium 135 mmol/L (135-145); Total Protein 5.6 g/dl (6.3-8.2); eGFR > 60.00
[2025-07-19 07:00] VITALS: BP 137/78
--- NOTE | 2025-07-19 08:51 | W.PN.HOSP.TC ---
Today's Communication/Plan
-
-Per urology, cleared for discharge this am, discharge w linn
-Maintain Linn catheter to drainage (balloon over-inflated)
-Continue IV ceftriaxone 1000mg daily while inpt given ongoing instrumentation, traumatic cath removal at SNF/ED replacement (07/16-); finish 7day course PO abx
-Plan to restart aspirin on 07/21
-Discharge to [facility] today
Assessment / Plan
Assessment / Plan
Michael Ramirez is an 85yo M with a pmh of ASCVD s/p stent, s/p TAVR, Parkinson's dementia, prostate cancer s/p radiation c/b radiation cystitis, recurrent hematuria w clots requiring CBI (last discharged 07/11), & recent ecoli UTI who presents from
[facility] after pulling out linn catheter, w catheter replaced now being monitored for traumatic hematuria, improved s/p CBI.
#Hematuria in s/o traumatic catheter removal, improved
Pt with hematuria & clots after catheter reinsertion following traumatic removal at [facility]. Bleeding likely 2/2 prostate trauma during removal. E coli UTI likely resolved & not a contributing factor (07/16 was last day of previously scheduled abx, UA
07/10 negative). UA (07/16) with no growth. AVSS. Urine clear during the day yesterday. Clamp trial 07/18 at midnight - urine dark yellow to slightly blood-tinged this am without signs of clots. Given dark red color in linn bag 07/18 afternoon, restarted
CBI. Thought to be old blood by urology rather than new. Clamp trial repeated midnight 07/19. This am, no blood in urine, katty colored w sediment. Hgb: 9.3>8.3>9.0>8.6, relativley stable.
-Per urology, cleared for discharge this am, discharge w linn
-Maintain Linn catheter to drainage (balloon over-inflated)
-Continue IV ceftriaxone 1000mg daily while inpt given ongoing instrumentation, traumatic cath removal at [facility]/ED replacement (07/16-); finish 7-day course PO abx
-Plan to restart aspirin on 07/21
#Chronic issues:
#Parkinson's dementia - continue psychotropic med regimen (carbidopa/levodopa, entacapone, quetiapine, rasagiline) & PRN quetiapine 12.5mg q6h
#ASCVD s/p stent; s/p TAVR; pacemaker - holding ASA inpt; plavix discontinued indefinitely
#HLD - continue atorvastatin 40mg
#Global
-DVT ppx: SCDs
-Diet: cholesterol lowering
-Code: full
-Dispo: to [facility] today
Anticipated Discharge: Today
Subjective/Interval History
-
Date of Service: July 19, 2025
Overnight note: patient restless and pulling at linn, requiring nonviolent restraints. Patient confused, appears uncomfortable restless. Patient's Linn irrigated with saline, small clots came out. Pt fell asleep before given any psych meds.
This am, pt eating breakfast, a bit tired. Did not like having the restraints last night. Otherwise in relatively good spirits, says the people here are kind. Understands plan to go [facility] today, asks for to be notified.
Objective Data
-
Labs:
Laboratory Results
07/19/25
05:38
WBC 6.1
Hgb 8.6 L
Hct 26.3 L
Plt Count 249
Sodium 135
Potassium 4.1
Chloride 106
Carbon Dioxide 29
BUN 16
Creatinine 0.5 L
Glucose 106 H
Calcium 8.9
Total Bilirubin 0.4
AST 23
ALT < 10
Alkaline Phosphatase 87
Vital Signs:
Vital Signs
Temp Pulse Resp BP Pulse Ox
98.1 F 97 20 137/78 97
07/19/25 07:00 07/19/25 07:00 07/19/25 07:00 07/19/25 07:00 07/19/25 07:00
I&O
07/18/25 07/19/25 07/20/25
06:59 06:59 06:59
Intake Total 1740 / 1740 620 / 620
Output Total 2350 / 2350 2725 / 2725
Balance -610 / -610 -2105 / -2105
Review of Systems
-
History Source: Patient
Constitutional: Reports No Symptoms
EENT: Reports Other (dry mouth)
Abdomen/GI: Reports No Symptoms
Genitourinary: Reports Dark Urine
Physical Exam
-
General: Well Developed and Conversant
HEENT: Normocephalic, Atraumatic and Anicteric
Respiratory: Non Labored Respirations
Cardiac: Regular Rhythm
GI: Nondistended
Genito-urinary: Linn and Other (linn in place; CBI clamped; bag with katty urine)
Neuro: Awake, Alert and Oriented
Psych: Calm
Data Reviewed
-
Total Time Spent with Patient (in minutes): 10
Critical Care Time (in minutes): 30
Labs: Labs Reviewed by me
[2025-07-19] MEDS: COLACE 100 MG PO (09:13)
[2025-07-19] MEDS: B COMPLEX w/VITAMIN C 1 CAPLET PO (09:13)
[2025-07-19] MEDS: FLOMAX 0.4 MG PO (09:13)
[2025-07-19] MEDS: RASAGILINE MESYLATE 1 MG PO (09:13)
[2025-07-19] MEDS: SINEMET 25-100 1 TABLET PO (09:14)
--- NOTE | 2025-07-19 10:20 | W.PN.URO.CBU ---
Today's Communication / Plan
-
fit for discharge urologically
Assessment / Plan
-
Traumatic self-removal of indwelling catheter
Prostatic and urethral bleeding (resolved)
H/o hematuria with clot retention
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
H/o DAPT (off Plavix permanently)
07/03: s/p cystoscopy, clot evacuation, extensive fulguration of urothelium (radiation cystitis, inflammatory changes)
sufficiently improved hematuria
Diagnosis
-
Date of Service: July 19, 2025
-
Patient Diagnosis:
Traumatic self-removal of indwelling catheter
Prostatic and urethral bleeding (resolved)
H/o hematuria with clot retention
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
H/o DAPT (off Plavix permanently)
Objective
-
Vital Signs
Temp Pulse Resp BP Pulse Ox
98.1 F 97 20 137/78 97
07/19/25 07:00 07/19/25 07:00 07/19/25 07:00 07/19/25 07:00 07/19/25 07:00
Intake and Output
07/18/25 07/19/25 07/20/25
06:59 06:59 06:59
Intake Total 1740 / 1740 620 / 620
Output Total 2350 / 2350 2725 / 2725
Balance -610 / -610 -2105 / -2105
Intake:
Oral fluids 1740 / 1740 620 / 620
Output:
Urine, Hernández 550 / 550 600 / 600
True Urine Output from CBI 1800 / 1800 2124 / 2124
Laboratory Results
07/19/25 05:38
07/19/25 05:38
Physical Exam
-
Genitalia - Hernández - pale pink urine
Care Review
Data Reviewed
Discussed with: Hospitalist
--- NOTE | 2025-07-19 10:25 | W.PN.UPDATE ---
Update Note
Progress Note Update
Spoke with patient's on phone, notified of discharge plan.
[2025-07-19] MEDS: KEFLEX 500 MG PO (11:43)
--- NOTE | 2025-07-19 11:43 | W.DCSUMMARY ---
Documented by User: Belkis Almanzar MD, Resident 07/19/25 11:56
Discharge Summary
Discharge Data
Date of Admission: 07/16/25
Date of Discharge: 07/19/25
Total time spent discharging patient (in min): 30
-
Pending Results: No
Hospital Course
Discharging Physician : Ray Baker; Belkis Almanzar
Disposition : to [facility]
Primary care physician : Fani Duff DO
Principal Discharge diagnosis : Gross hematuria in the setting of traumatic Linn removal
Chronic Discharge diagnoses : Parkinson's dementia with agitation; ASCVD status post stent; AAS status post TAVR; pacemaker; hyperlipidemia; prostate cancer status post radiation complicated by radiation cystitis
Hospital Course :
Pt was recently discharged from on 07/11 after the following course:
Gross Hematuria in s/o radiation cystitis - s/p two recent admissions to (05/29 and 06/29) for gross hematuria requiring CBI. On admission 06/29-, required 5 units PRBCs. On 07/03, pt was taken for cystoscopy with clot evacuation and transurethral
vaporization of bladder urothelium�extensive cauterization. Plavix was permanently stopped at that time; ASA held and unclear if restarted on 07/06. On 07/10- admission, pt presented w worsening agitation and gross hematuria. Hgb 9.1 on admission.
Per urology, rebleeds can occur ~1 week s/p fulguration - likely etiology of current bleed +/- irritation from linn catheter & resolving e coli UTI (being trt w 14 day course abx). Pt treated w CBI & ceftriaxone and urine cleared of gross
hematuria, discharged to [facility] w linn catheter and keflex 500mg bid to finish through 07/16. Planned to continue holding aspirin and Plavix indefinitely. UA from 07/10 returned negative.
This admission:
Patient presented on 07/16 after pulling out Linn catheter at [facility] with staff unable to replace the catheter. In the ED a three-way catheter was placed. Urine was initially clear however significant clots were noted likely secondary to trauma from
removal. CBI was started and patient was given 1 g tranexamic acid. Urine cleared status post CBI, clamp trial was tried at midnight of first night inpatient. Urine remained clear after clamp trial the next morning, however urine was noted later
in the afternoon to have dark red blood. Urology evaluated, thought to be likely old blood, lysing old clots rather than a new bleed. CBI was restarted during the day at 07/18, and clamp trial was attempted again at midnight. On the morning of 07/19
there was no blood in the urine bag, urine color was katty with sediment. Hemoglobin was 9.8 on admission, trended: 9.3>8.3>9.0>8.6, over course of admission, relatively stable. Urology cleared patient for discharge on 07/19 with three-way Linn in
place. Plan for follow-up with urology in 4 weeks for Linn replacement and evaluation.
Patient was also started on IV ceftriaxone during stay given concern for an elevated infection risk in the setting of traumatic Linn removal & replacement in the ED. Planning to finish 7-day course of antibiotics with p.o. keflex outpatient, with
last day of antibiotics on 07/22.
Per discussion between cardiology and urology teams, planning to restart aspirin outpatient. Per discussion, risk of stroke in the setting of clotting around cardiac stent placed within the past year greater than risk of hematuria. Will plan for
restarting aspirin 81 mg daily Monday at 07/21 and monitoring hemoglobin with CBC 5 days after discharge (discharged today, 07/19). However, will continue holding Plavix indefinitely.
Important imaging findings : N/A
Procedure findings : N/A
Discharge Plan
-
Patient Disposition: [facility]
Discharge Diagnosis/Procedures: hematuria in s/o traumatic linn removal
Condition: Good
Diet: No restrictions
Activity: As tolerated
Driving Restrictions: As prior to admission
Bathing Restrictions: None
Blood Work: CBC in 5 days
Activity Restrictions/Additional Instructions:
- 3-way catheter in place (balloon is over-inflated for security)
- Plan to follow-up in urology office in 4 weeks for catheter change
- DO NOT remove catheter for voiding trial - patient has recurrent urinary retention and will likely require chronic indwelling catheter
Referrals:
Gregorio Yates MD [Active, Urology] - in three to four weeks
Referral Note: Call to schedule 4 week catheter change in office.
Fani Duff, [Non-Admitting Privileges, General]
Additional Discharge Medication Instructions: - Restart aspirin 81mg on Monday, 07/21
- Take the antibiotic cephalexin (500mg 2x/day) starting , 07/19, through Monday, 07/22. You received your first dose of cephalexin this morning (07/19) before leaving the hospital, so you need to take one more dose at [facility].
- Get labs in 5 days (CBC)
Prescriptions:
New
cephalexin 500 mg capsule
500 mg PO BID 4 Days Qty: 8 0RF
aspirin 81 mg capsule
81 mg PO DAILY Qty: 90 0RF
Rx Instructions:
You may start taking this on Monday, 07/21. This is to prevent clotting around the stent in your heart.
Continued
quetiapine 25 mg Tablet
25 mg PO HS
atorvastatin 40 mg tablet
40 mg PO HS
zinc acetate 50 mg (zinc) Capsule
50 mg PO DAILY
carbidopa-levodopa 50-200 mg tablet extended release
1 tab PO HS
acetaminophen 500 mg Tablet
500 mg PO BIDPRN PRN (Reason: mild pain)
flaxseed oil 1,000 mg Capsule
1,000 mg PO DAILY
entacapone 200 mg tablet
200 mg PO HS
ascorbic acid (vitamin C) 500 mg Tablet
500 mg PO DAILY
calcium polycarbophil 625 mg Tablet
625 mg PO BID
docusate sodium 100 mg Capsule
100 mg PO DAILY
vitamin B complex Tablet
1 tab PO DAILY
carbidopa-levodopa 25-100 mg Tablet
1 tab PO QID
coenzyme Q10 [Co Q-10] 100 mg Capsule
100 mg PO BID
rasagiline 1 mg tablet
1 mg PO DAILY
cetirizine 10 mg Tablet
10 mg PO DAILYPRN PRN (Reason: allergy) Qty: 0 0RF
magnesium hydroxide [Milk of Magnesia] 400 mg/5 mL Suspension
30 ml PO DAILY PRN (Reason: constipation)
Rx Instructions:
give on day 4 of no BM
bisacodyl [Dulcolax (bisacodyl)] 10 mg Suppository
10 mg OH DAILY PRN (Reason: constipation)
Rx Instructions:
if MOM ineffective, give on day 5 of no BM
Fleet Enema Extra 19-7 gram/197 mL Enema
197 ml OH ONCE
Rx Instructions:
if dulcolax ineffective, give on day 6 of no BM
tamsulosin 0.4 mg Capsule
0.4 mg PO DAILY Qty: 30 0RF
lorazepam 0.5 mg Tablet
0.5 mg PO BID PRN (Reason: anxiety, agitation, restlessness)
Discontinued
cephalexin 500 mg capsule
500 mg PO Q12H 6 Days Qty: 22 0RF
Rx Instructions:
through 07/16
Discharge Orders:
Discharge Patient (As Directed); Ordered 07/19/25
Ordered By: Belkis Almanzar
Discharge Date and Time
Print Language: DIVEHI

Documented by User: Ray Baker DO 07/19/25 12:01
Discharge Summary
Discharge Data
Date of Admission: 07/16/25
Date of Discharge: 07/19/25
Total time spent discharging patient (in min): 31
Discharge Plan
-
Patient Disposition: [facility]
Discharge Diagnosis/Procedures: hematuria in s/o traumatic linn removal
Condition: Good
Diet: No restrictions
Activity: As tolerated
Driving Restrictions: As prior to admission
Bathing Restrictions: None
Blood Work: CBC in 5 days
Activity Restrictions/Additional Instructions:
- 3-way catheter in place (balloon is over-inflated for security)
- Plan to follow-up in urology office in 4 weeks for catheter change
- DO NOT remove catheter for voiding trial - patient has recurrent urinary retention and will likely require chronic indwelling catheter
Referrals:
Gregorio Yates MD [Active, Urology] - in three to four weeks
Referral Note: Call to schedule 4 week catheter change in office.
Fani Duff DO [Non-Admitting Privileges, General]
Additional Discharge Medication Instructions: - Restart aspirin 81mg on Monday, 07/21
- Take the antibiotic cephalexin (500mg 2x/day) starting today, 07/19, through Monday, 07/22. You received your first dose of cephalexin this morning (07/19) before leaving the hospital, so you need to take one more dose at [facility].
- Get labs in 5 days (CBC)
Prescriptions:
New
cephalexin 500 mg capsule
500 mg PO BID 4 Days Qty: 8 0RF
aspirin 81 mg capsule
81 mg PO DAILY Qty: 90 0RF
Rx Instructions:
You may start taking this on Monday, 07/21. This is to prevent clotting around the stent in your heart.
Continued
quetiapine 25 mg Tablet
25 mg PO HS
atorvastatin 40 mg tablet
40 mg PO HS
zinc acetate 50 mg (zinc) Capsule
50 mg PO DAILY
carbidopa-levodopa 50-200 mg tablet extended release
1 tab PO HS
acetaminophen 500 mg Tablet
500 mg PO BIDPRN PRN (Reason: mild pain)
flaxseed oil 1,000 mg Capsule
1,000 mg PO DAILY
entacapone 200 mg tablet
200 mg PO HS
ascorbic acid (vitamin C) 500 mg Tablet
500 mg PO DAILY
calcium polycarbophil 625 mg Tablet
625 mg PO BID
docusate sodium 100 mg Capsule
100 mg PO DAILY
vitamin B complex Tablet
1 tab PO DAILY
carbidopa-levodopa 25-100 mg Tablet
1 tab PO QID
coenzyme Q10 [Co Q-10] 100 mg Capsule
100 mg PO BID
rasagiline 1 mg tablet
1 mg PO DAILY
cetirizine 10 mg Tablet
10 mg PO DAILYPRN PRN (Reason: allergy) Qty: 0 0RF
magnesium hydroxide [Milk of Magnesia] 400 mg/5 mL Suspension
30 ml PO DAILY PRN (Reason: constipation)
Rx Instructions:
give on day 4 of no BM
bisacodyl [Dulcolax (bisacodyl)] 10 mg Suppository
10 mg OH DAILY PRN (Reason: constipation)
Rx Instructions:
if MOM ineffective, give on day 5 of no BM
Fleet Enema Extra 19-7 gram/197 mL Enema
197 ml OH ONCE
Rx Instructions:
if dulcolax ineffective, give on day 6 of no BM
tamsulosin 0.4 mg Capsule
0.4 mg PO DAILY Qty: 30 0RF
lorazepam 0.5 mg Tablet
0.5 mg PO BID PRN (Reason: anxiety, agitation, restlessness)
Discontinued
cephalexin 500 mg capsule
500 mg PO Q12H 6 Days Qty: 22 0RF
Rx Instructions:
through 07/16
Discharge Orders:
Discharge Patient (As Directed); Ordered 07/19/25
Ordered By: Belkis Almanzar
Discharge Date and Time
Print Language: DIVEHI
[2025-07-19] MEDS: ROCEPHIN IV (11:56)
[2025-07-19] MEDS: STERILE WATER FOR INJECTION IV (11:56)
[2025-07-19 12:40] VITALS: BP 140/80
--- NOTE | 2025-07-19 16:09 | CM ---
Pt was discharged via ambulance to [facility] today. CM spoke with Suzette at [facility] to advise regarding transport time of 1PM today.
IMM issued 07/18/2025.
== END 2025-07-19 13:01 | DRG 699 ==
LOC: 3 WEST ACU 14:47
PROVIDERS: ADMITTING PHYSICIAN Internal Medicine; CONSULT PHYSICIAN Surgery; EMERGENCY PHYSICIAN Emergency Medicine
DX: T83.021A Displacement of indwelling urethral catheter, initial encounter (principal); D62 Acute posthemorrhagic anemia; T83.83XA Hemorrhage due to genitourinary prosthetic devices, implants and grafts, initial encounter; N30.41 Irradiation cystitis with hematuria; F02.811 Dementia in other diseases classified elsewhere, unspecified severity, with agitation; I25.10 Atherosclerotic heart disease of native coronary artery without angina pectoris; R82.71 Bacteriuria; C61 Malignant neoplasm of prostate; Y84.9 Medical procedure, unspecified as the cause of abnormal reaction of the patient, or of later complication, without mention of misadventure at the time of the procedure; E78.5 Hyperlipidemia, unspecified; Y73.2 Prosthetic and other implants, materials and accessory gastroenterology and urology devices associated with adverse incidents; G20.A1 Parkinson's disease without dyskinesia, without mention of fluctuations; K59.00 Constipation, unspecified; Z79.899 Other long term (current) drug therapy; Z92.3 Personal history of irradiation; Z95.2 Presence of prosthetic heart valve; Z95.5 Presence of coronary angioplasty implant and graft
CPT/HCPCS: 76770; 80048; 80053; 81003; 81015; 85014; 85018; 85025; 86850; 86900; 86901; 96374; 96375; 97163; 97167; 97530; 99285